=== PATIENT | male | born 1955 | race Caucasian/White ===

== ENCOUNTER 2016-12-10 07:39 | Inpatient (IN) | payer OTHER ==
[2016-12-10] VITALS (15 sets, daily range): BP systolic 82–197; BP diastolic 34–91; PULSE 60–76; RESP 16–20; O2SAT 95–100
[~2016-12-10] VITALS: Ht 182.9 cm; Wt 60.2 kg
--- NOTE | 2016-12-10 07:35 | ED.REPORT ---
HPI-Syncope Date of Service Dec 10, 2016 ED Provider: Chris Williamson MD Pt is an otherwise healthy 61 year old male who presents to the ED via EMS after a syncopal episode prior to arrival. He c/o associated lightheadedness, change in LOC, weight loss, diaphoresis, and weakness onset a "few" months ago. He denies current symptoms, cough, chest pain, SOB, dysuria, masses, vomiting, diarrhea, decreased appetite, decreased fluid intake, tarry stools, melena, bruising, and any other symptoms. 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 Pt was hypotensive on EMS arrival, with a blood pressure around 80/60 when laying supine. The pt has not been treated for his symptoms since onset. He reports that he unintentionally lost approximately 30 lbs "a few months ago." Pt states that his symptoms have been worsening recently. He denies a history of anemia and GI bleeding. He reports that he has experienced an occasional mild heartburn recently. Nursing Notes Stated Complaint: SYNCOPAL Chief Complaint: Syncope Nursing Notes Reviewed: Yes ([place] not reconciled) Allergies: Coded Allergies: No Known Allergies (Unverified , 12/10/16) Miscellaneous Medications Multivit-Min/Iron Fum/Folic AC (Svzvs-Llogqwb-Xqpmvveo Tablet) 7.5 Mg Iron-400 Mcg Tablet 1 EACH PO [place]-3 Fatty Acids/Fish Oil (Fish Oil 1,200 mg Softgel) 1 Each Capsule 1 EACH PO General Time Seen by Provider: 07:40 Chief Complaint Other (syncope) Hx Obtained From: Patient, EMS Arrived By: Ambulance Onset Occurred: Just prior to arrival Symptom Duration: Duration unknown Severity: Current: No pain currently Severity: Maximum: No pain Recent Healthcare: No recent doctor visit, No recent hospitalization Similar Sx Previous: No Past Medical History Past Medical History None reported - healthy Denies anemia Denies: GI bleed Past Surgical History Denies Smoking History Current Every Day Smoker Social History Alcohol Use: Denies alcohol use 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 Additional Review of Systems Male: Denies Dysuria Endocrine: Reports: Weight loss, Denies: Weight gain Physical Exam Initial Vital Signs Vital Signs (First) Date Time Temp Pulse Resp B/P Pulse Ox O2 Delivery O2 Flow Rate FiO2 12/10/16 07:41 36.9 71 16 82/37 96 Room Air 12/10/16 08:35 2 Initial VS: Reviewed, Unavailable, Vital signs abnormal (initial skin care specialist BP 74/p, ALS BP 95/p) Neck: Supple, Full range of motion Abdomen / GI: Soft, Non-tender Upper Extremities: Vascular intact, Neuro intact Psychiatric: Mood/affect normal, Behavior normal General/Constitutional: Awake, Alert He is extremely pale. Mentating. Respiratory / Chest: Atraumatic, Breath sounds NL, Breath sounds = bilat He is not tachypneic. Cardiovascular: Heart rate NL, Regular rhythm, Heart sounds NL Heart Rate / Rhythm: Negative: Tachycardia Hypotensive. No edema in the legs. Lower Extremity / Pelvis / MS: Atraumatic, Full range of motion Neurologic: No motor deficits, No sensory deficits Head / Eyes: Atraumatic, Normocephalic Marked conjunctival pallor ENT: Atraumatic, Airway patent Mouth: Positive: Mucous membranes dry Skin: Warm, Dry No jaundice or masses. Rectal for Blood: Positive: Blood, grossly present Rectal mass which he now mentions has been there for a couple of months. Interpretation & Diagnostics CT CHEST, ABDOMEN AND PELVIS WITH CONTRAST IMPRESSION: 1. Extensive pulmonary metastases. 2. Extensive hepatic metastases. 3. Masses in the distal colon at the sigmorectal junction, as well as anus. 4. Enlarged perirectal lymph nodes consistent with metastases. 5. Small amount of free fluid. 6. A small hiatal hernia. 7. Bifid pancreatic tail. Dictated by: Narinder Walton M.D. on 12/10/2016 at 11:16 Lab Results Interpretation Result Diagram: 12/10/16 0754 12/10/16 0835 Test 12/10/16 07:54 12/10/16 08:35 White Blood Count 13.4th/mm3 (3.8-10.1) Red Blood Count 1.97mil/mm3 (4.40-5.80) Hemoglobin 3.9g/dL (13.8-17.2) Hematocrit 14.3% (41.0-50.0) Mean Corpuscular Volume 72.6fL (81-100) Mean Corpuscular Hemoglobin 19.8pg (27.0-35.0) Mean Corpuscular Hemoglobin Concent 27.3% (32.0-37.0) Red Cell Distribution Width 19.9% (12.3-15.4) Platelet Count 954bil/L (150-400) Neutrophils (%) (Auto) 86.2% (40-74) Lymphocytes (%) (Auto) 6.4% (14-46) Monocytes (%) (Auto) 6.9% (4-12) Eosinophils (%) (Auto) 0.1% (0-5) Basophils (%) (Auto) 0.1% (0-3) Reticulocyte Count,Calculated 4.0% (0.6-2.6) Prothrombin Time 11.5sec (8.1-12.5) Prothromb Time International Ratio 1.07ratio Activated Partial Thromboplast Time 27.1sec (22.8-33.0) Sodium Level 131mEq/L (134-144) Potassium Level 4.3mEq/L (3.5-5.2) Chloride Level 95mEq/L (97-108) Carbon Dioxide Level 16mmol/L (18-29) Blood Urea Nitrogen 16mg/dL (8-27) Creatinine 1.09mg/dL (0.76-1.27) Estimat Glomerular Filtration Rate 73mL/min (>59) Glucose Level 112mg/dL (60-99) Calcium Level 7.7mg/dL (8.5-10.1) Iron Level 15ug/dL (35-150) Total Iron Binding Capacity 256ug/dL (250-450) Percent Iron Saturation 6%sat (15-50) Unsaturated Iron Binding 241.4ug/dL Ferritin 60ng/mL (30-400) Total Bilirubin 0.6mg/dL (0.0-1.2) Aspartate Amino Transf (AST/SGOT) 28U/L (0-50) Alanine Aminotransferase (ALT/SGPT) 28U/L (0-44) Alkaline Phosphatase 490U/L (25-160) Troponin T 0.010ug/L (0.0-0.011) Total Protein 5.8g/dL (6.4-8.4) Albumin 2.7g/dL (3.4-5.0) ECG Interpretation ECG Interpretation: Sinus rhythm with a rate of 65 Premature contractions LVH No ischemic changes No prior ECG for comparison Time: 07:59 Interpreted by: ED physician X-Ray Chest Interpretation Chest Xray Interpretation: IMPRESSION: Multiple masses bilaterally suspicious for pulmonary metastases. Dictated by: Narinder Walton M.D. 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 Patient was found hypotensive by first responders and pale. The patient reports he has not seen a doctor long time, denies any no medical problems and denies taking any medicines. Been feeling increasingly weak over recent months, describes a 20-30 pound weight loss that is unintentional and recent months, and initially denied any GI bleeding later admitted to having "a lump" in the rectum with some blood. He denied dyspepsia, NSAID use, anticoagulants. Denies prior history of anemia. He denied fevers chills chest pain or palpitations. He had no dysrhythmia events for EMS, but was persistently hypotensive. Arrival he is hypotensive, but alert, answering questions in no visible distress -he is cachectic, and appears chronically ill, but mentating was no evidence of inadequate perfusion. However he is extremely pale. And when I went to perform a rectal exam and guaiac, he had a rectal mass that he had not mentioned , and is guaiac positive. Small amount of gross blood. Lab work revealed severe anemia of ACIDOSIS likely secondary to anemia. EKG revealed no acute abnormalities. The patient's initial liter of saline, and then was transfused, and his blood pressures improved to the low normal range. A chest x-ray suspicious for multiple pulmonary metastases. And at this point a CT scan of the chest abdomen pelvis is being obtained with IV and oral contrast. 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 GI has been consult initially. Source of Hx: Old records Re-Evaluation/Progress #1: Time of Eval: 08:59 Re-Evaluation/Progress Note: Pt rechecked. Informed pt of plan for admission. Pt understands and agrees with plan for admission. All questions addressed. Re-Evaluation/Progress #2: Time of Eval: 09:27 Re-Evaluation/Progress Note: Pt rechecked. Tested pt for guaiac. Pt has a rectal mass, which he now mentions has been there for a couple of months and is painful. All questions addressed. Consultation #1: Referral / Consult Name: Terry Grider DO Consulted With: Hospitalist Call Returned at: 09:16 [place]ark Carpenter: Will see patient, Agrees with eval, Agrees with plan, Accepts admit Consultation #2: Referral / Consult Name: Lopez Guzman MD Call Returned at: 09:33 Bul[place]ark Carpenter: Agrees with eval, Agrees with plan Note: Consulted GI. Discussed pt's case. Consultation #3: Referral / Consult Name: Terry Grider DO Consulted With: Hospitalist Call Returned at: 10:02 Bul[place]ark Carpenter: Agrees with eval, Agrees with plan Note: Discussed pt's rectal exam. Counseled Regarding: Diagnosis, Lab results, Need for admission Discharge & Departure Impression: Primary Impression: Symptomatic anemia Additional Impressions: GI bleed GI bleed type/associated pathology: unspecified gastrointestinal hemorrhage type Qualified Code: K92.2 - Gastrointestinal hemorrhage, unspecified Syncope and collapse Rectal mass Pulmonary metastases Laterality: unspecified laterality Qualified Code: C78.00 - Secondary malignant neoplasm of unspecified lung Malignancy Disposition: ADMITTED TO HOSPITAL Discharge Condition All VS Reviewed: Yes Condition: Stable Crit Care Except Billable Proc Time Spent: 30-74 minutes Services Performed: Patient management by me, Time spent at bedside, Reviewing test results, Reviewing imaging, Discussing patient care, Documentation in record Scribe Attestation Portions of this note were transcribed by Lou Braga. I, Dr. Williamson personally performed the history, physical exam and medical decision-making; I reviewed and confirmed the accuracy of the information in the transcribed note. Signed by: Emily Bella, 12/10/16. Chris Williamson MD Dec 10, 2016 07:35 Lou Cornelius Dec 10, 2016 07:38
[2016-12-10] MEDS ORDERED: 0.9% Sodium Chloride 1,000 ML IV ONE (08:10)
[2016-12-10 08:11] LABS: EOSINOPHILS % (AUTO) 0.1 % (0-5)
--- NOTE | 2016-12-10 08:40 | DRSVH ---
PROCEDURE: X-RAY CHEST ONE VIEW, PORTABLE ([id number]) INDICATIONS: Syncope TECHNIQUE: One view of the chest was acquired. COMPARISON: None. FINDINGS: Surgical changes and devices: None. Lungs and pleura: Multiple masses are present bilaterally, predominantly involving the lower lobes, suspicious for metastatic disease. No pleural effusions or pneumothorax. Mediastinum: Mediastinal contours appear normal. Heart size is normal. Bones and chest wall: No suspicious bony lesions. Overlying soft tissues appear unremarkable. IMPRESSION: Multiple masses bilaterally suspicious for pulmonary metastases. Dictated by: Narinder Walton M.D. on 12/10/2016 at 8:37 Approved by: Narinder Walton M.D. on 12/10/2016 at 8:39
[2016-12-10 09:02] LABS: MONOCYTES % (AUTO) 6.9 % (4-12); Mean Corpuscular Hemoglobin 19.8 pg (27.0-35.0); Mean Corpuscular Volume 72.6 fL (81-100); NEUTROPHILS % (AUTO) 86.2 % (40-74); Platelet Count 954 bil/L (150-400)
[2016-12-10 09:03] LABS: BASOPHILS % (AUTO) 0.1 % (0-3)
[2016-12-10 09:05] LABS: INR 1.07 ratio
[2016-12-10 09:26] LABS: Unsaturated Iron Binding 241.4 ug/dL
[2016-12-10] MEDS ORDERED: Iohexol 300 mg/mL 30 mL Inj PO ONE (09:35)
[2016-12-10] MEDS ORDERED: OMEG1CAP99 PO (10:07)
[2016-12-10] MEDS ORDERED: MULT-1086 PO (10:07)
[2016-12-10 10:21] LABS: TROPONIN T 0.01 ug/L (0.0-0.011)
[2016-12-10] MEDS ORDERED: 0.9% Sodium Chloride 250 ML IV ONE (11:00)
[2016-12-10] MEDS ORDERED: Alum-Mag Hydrox-Simeth 30 mL Suspension PO PRN (11:25)
[2016-12-10] MEDS ORDERED: Ondansetron 2 mg/mL 2 mL Inj IVPUSH PRN ×2 (11:25→13:25)
--- NOTE | 2016-12-10 11:50 | NUR ---
Arrival to room 2008 Patient escorted via bed to room 2008. Alert and oriented at time of arrival to unit. Denies pain. Vital signs stable. Telemetry applied. 3rd unit of PRBCs transfusing at time of arrival. Patient tolerating, no s/s of reaction. Patient oriented to room and call light. Activity restrictions and plan of care reviewed at bedside. Will continue to monitor.
--- NOTE | 2016-12-10 12:01 | DRSVH ---
PROCEDURE: CT CHEST, ABDOMEN AND PELVIS WTIH CONTRAST ([id number]) INDICATIONS: 61-year-old man with rectal mass, wt loss, pulmonary masses. TECHNIQUE: After the administration of oral and intravenous contrast, 5 mm thick sections acquired from the lung apices to the symphysis. 5 mm coronal and sagittal reformats were performed, with additional 7 mm c oronal MIP reformats through the lungs. For radiation dose reduction, the following was used: autom ated exposure control, adjustment of mA and/or kV according to patient size. COMPARISON: [facility], CR, XR CHEST 1VW (PORTABLE), 12/10/2016, 8:16. FINDINGS: Image quality: Excellent. CHEST: Lungs and pleura: There are multiple lung nodules/masses bilaterally consistent with pulmonary metas tases. The largest mass is in the left lower lobe measuring 4.1 cm. No acute airspace opacities. No pleural effusions or pneumothorax. Central and peripheral airways appear patent and normal in calibe r. Mediastinum: Heart size is normal. No pericardial effusion. No enlarged mediastinal lymph nodes. A 1.6 cm right hilar lymph node is noted. Thoracic aorta and central pulmonary arteries are normal in size. Esophagus is normal in caliber. There is a small hiatal hernia. Chest wall: No axillary or supraclavicular adenopathy by size criteria. Thyroid gland is normal. ABDOMEN: Solid organs: There are innumerable liver masses. A large conglomerate mass in the left hepatic lobe measures 9.1 x 13.7 cm. A large conglomerate mass in the right hepatic lobe measures 12.6 x 11.0 cm. The findings are highly suspicious for hepatic metastases. Spleen is normal in size and enhancement. Gallbladder contains a small gallstone. Biliary system is non dilated. There is bifid pancreatic tail, which is a normal variant. Pancreas enhances normally. No adrenal nodules. Kidneys demonstrate normal size and enhancement, without hydronephrosis. Peritoneum and bowel: There is a mass in the right lateral wall of the distal sigmoid colon at the r ectosigmoid junction measuring 2.4 x 2.9 cm. There is irregular thickening/mass in the left lateral w all of anus. There is a large right perirectal mass measuring 3.4 x 2.9 cm. Another perirectal mass i s seen on the left side measuring 1.9 x 2.3 cm. Both masses are consistent with metastatic lymph node s. Bowel loops demonstrate normal caliber. No free air. There is a small amount of free fluid. Nodes and vessels: No retroperitoneal or mesenteric adenopathy by size criteria. Aorta and inferior vena cava are normal in size. Miscellaneous: No ventral hernias. PELVIS: Genitourinary: Bladder wall thickness is normal. Miscellaneous: No inguinal hernias or adenopathy. Bones: No suspicious bony lesions. No vertebral body compression fractures. IMPRESSION: 1. Extensive pulmonary metastases. 2. Extensive hepatic metastases. 3. Masses in the distal colon at the sigmorectal junction, as well as anus. 4. Enlarged perirectal lymph nodes consistent with metastases. 5. Small amount of free fluid. 6. A small hiatal hernia. 7. Bifid pancreatic tail. Dictated by: Narinder Walton M.D. on 12/10/2016 at 11:16 Approved by: Narinder Walton M.D. on 12/10/2016 at 12:00
[2016-12-10] MEDS ORDERED: HYDROcodone-APAP 5-325 mg Tablet PO PRN (13:25)
--- NOTE | 2016-12-10 14:51 | PCM.CHPMED ---
Subjective Date of Service: Dec 10, 2016 Provider requesting consult: Chris Williamson MD Primary Physician: Admitting Physician: Primary Care Physician: Jazzmine Attending Physician: Admit Status: From the Emergency Department Chief Complaint: Chief Complaint: Rectal mass History of Present Illness: Tomer Bear is a 61-year-old gentleman with a history of chronic diarrhea and tobacco dependence who presented to the ED via EMS following a syncopal episode. He states that for the past few months his health has steadily been declining. He states that he has generally felt weak, tired and has noticed a significant decrease in his appetite. Just prior to admission the patient was at work and states that he felt dizzy so he sat down on the curb. 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 When EMS arrived the patient was reportedly hypotensive with a blood pressure around 80/60 when laying supine but vitals were otherwise stable. Patient states that he also felt short of breath during this episode and reports generalized weakness, decreased appetite , dizziness, and unintentional weight loss. Of note, the patient states that he has had diarrhea for the past year or so and that every few days there is also blood in his stool. On review of outpatient records the patient was evaluated for diarrhea, fatigue and weight loss one year ago. At that time a colonoscopy was ordered but never completed. The patients states that he never went in and had it done and that his symptoms have gradually progressed since. When asked about the rectal mass noted in the ED, the patient states that he first noticed this several months ago but has not 'done anything about it'. He states that it is not painful and he is unsure if it has increased in size. He denies fever, chills, shortness of breath (outside of today), abdominal pain, nausea, vomiting , headache, changes in vision, dysuria or hematuria. He does report difficulty initiating urination as well as a decreased urinary stream. He is a current daily smoker, reporting 10-15 cigarettes per day for 'decades'. He reports a history of 6-8 beers per day on the weekends but states that he has not drank in several months due to his declining health. He does not take NSAIDs or aspirin and states that he only drinks soda on occasion. In the ED he was afebrile and hypotensive with a BP of 82/37, HR 71 and O2 sats were 96% on room air with a RR of 16. Labs were significant for severe microcytic anemia with a Hb of 3.9/Hct 14.3, iron deficiency, thrombocytosis with platelets 954,000, and a mild leukocytosis with a left shift. ECG sinus rhythm with a rate of 65, LVH, no ST-T wave changes and no prior ECG on file for comparison. Chest xray with multiple masses bilaterally suspicious for pulmonary metastases. Review of Systems: A comprehensive review of systems was conducted with the patient and found to be negative except as above in the History of Present Illness. PMH Past Medical History Chronic diarrhea Hypotension Syncope Tobacco dependence Unintentional weight loss Surgical History Finger surgery otherwise denies. Allergies: Coded Allergies: No Known Allergies (Unverified , 12/10/16) Family History Family History Father- lung cancer Brother- lung cancer Mother- stroke Social History Hx Alcohol Use: NoHx Substance Use: No Smoking Status: Current Every Day Smoker Living Arrangement: with Family Exam Vital Signs Vital Sign - Last Date Time Temp Pulse Resp B/P Pulse Ox O2 Delivery O2 Flow Rate FiO2 12/10/16 08:49 71 18 93/39 97 Nasal Cannula 2 12/10/16 07:41 36.9 General: Thin, pale and chronically ill-appearing man in no acute distress. HEENT: Normocephalic, atraumatic. External ears normal. PERRLA, EOMI. Anicteric sclerae. Mucous membranes dry Lungs: Clear to auscultation bilaterally with no crackles, wheezes, or rhonchi. Cardiovascular: Regular rate/rhythm. No murmurs Abdomen: Soft, non-distended, non-tender. Hypoactive bowel tones. Rectal: Anal sphincter normal, gross blood present, no obvious hemorrhoids or external masses. Extremities: No cyanosis/clubbing/edema bilaterally Skin: Warm, dry without obvious rashes or ulcerations. Somewhat sallow in color with decreased turgor. Neurological: Alert and oriented x3. Grossly neurologically intact. Normal speech Psychiatric: Normal mood and affect. Communicating appropriately. Lab and Diagnostics Labs Laboratory Tests Test 12/10/16 07:54 12/10/16 08:35 White Blood Count 13.4th/mm3 (3.8-10.1) Red Blood Count 1.97mil/mm3 (4.40-5.80) Hemoglobin 3.9g/dL (13.8-17.2) Hematocrit 14.3% (41.0-50.0) Mean Corpuscular Volume 72.6fL (81-100) Mean Corpuscular Hemoglobin 19.8pg (27.0-35.0) Mean Corpuscular Hemoglobin Concent 27.3% (32.0-37.0) Red Cell Distribution Width 19.9% (12.3-15.4) Platelet Count 954bil/L (150-400) Neutrophils (%) (Auto) 86.2% (40-74) Lymphocytes (%) (Auto) 6.4% (14-46) Monocytes (%) (Auto) 6.9% (4-12) Eosinophils (%) (Auto) 0.1% (0-5) Basophils (%) (Auto) 0.1% (0-3) Reticulocyte Count,Calculated 4.0% (0.6-2.6) Prothrombin Time 11.5sec (8.1-12.5) Prothromb Time International Ratio 1.07ratio Activated Partial Thromboplast Time 27.1sec (22.8-33.0) Iron Level 15ug/dL (35-150) Total Iron Binding Capacity 256ug/dL (250-450) Percent Iron Saturation 6%sat (15-50) Unsaturated Iron Binding 241.4ug/dL Ferritin 60ng/mL (30-400) Result Diagram: 12/10/16 0754 X-Rays, CTs and MRIs 12/10/16 - X-RAY CHEST ONE VIEW, PORTABLE IMPRESSION: Multiple masses bilaterally suspicious for pulmonary metastases. Approved by: Narinder Walton M.D. on 12/10/2016 at 8:39 12-lead ECG ECG at presentation showed sinus rhythm with a rate of 65, LVH, no ST-T wave changes and no prior ECG on file for comparison. Assessment & Plan Assessment 61-year-old gentleman with a history of chronic diarrhea and tobacco dependence who presented to the ED via EMS following a syncopal episode. Admitted for severe anemia in the setting of hematochezia and a rectal mass for approximately the past year. GI consulted for further evaluation and management of lower GI bleeding and rectal mass. Hematochezia in a patient with chronic diarrhea, rectal mass and poor health care followup. -Patient presented with hypotension and severe anemia following a syncopal episode at work. He reports a steady decline in his health for the past year including: increasing weakness, fatigue, unintentional weight loss and decreased appetite. He was evaluated in the outpatient setting one year ago for chronic diarrhea with intermittent hematochezia and weight loss. At that time a colonoscopy was ordered along with lab work and the patient did not have this done and has not returned to the doctor since that time. He denies family history of colon or rectal cancers and has never had a colonoscopy. -Differential diagnosis includes: diverticulosis, angiodysplasia, inflammatory bowel disease, infectious colitis, hemorrhoids, and neoplasm. RECOMMENDATIONS: -Clear liquid diet prior to prep -Start colonoscopy prep at 5pm, then ice chips only -EGD/Colonoscopy tomorrow -Monitor H/H, transfuse if Hb < 7.0 Microcytic anemia secondary to iron deficiency and acute blood loss. -At presentation Hb/Hct 3.9/14.3. Currently receiving a 3rd unit of pRBCs. -Monitor Hb/Hct, transfuse if Hb <7.0 -Supplemental iron when taking PO Thrombocytosis, likely chronic. Present on admission. Active. -likely secondary to acute blood loss/iron deficiency and potentially neoplasm and/or chronic inflammation. -Management as above Leukocytosis, acute. Present on admission. Active. -Likely stress reaction. Possibly secondary to neoplasm and/or chronic inflammation. -Treat underlying cause -Monitor CBC Problems: Pain Evaluation: Adequate Pain Control Resuscitation Status: CPR: Attempt Resuscitation Attending Statement Agree with assessment and plan above. Patient presented with profound anemia and weight loss for the past year. Patient never had EGD and colonoscopy. CT scan of chest and pelvis concerning for metastatic disease to the lung and liver with a colonic mass. Suspect possible primary origin from the colon. Patient will be having an EGD and colonoscopy tomorrow. Radhika Triana DO Dec 10, 2016 09:42 Lopez Guzman MD Dec 10, 2016 15:40
[2016-12-10] MEDS ORDERED: PEG/Electrolytes 4,000 mL Solution PO ONE (16:00)
--- NOTE | 2016-12-10 17:26 | PCM.HPMED ---
Subjective Date of Service Dec 10, 2016 Primary Provider: Admitting Physician: Terry Grider DO Primary Care Physician: Jazzmine Attending Physician: Terry Grider DO Chief Complaint: Rectal mass, weakness, near syncopal episode History of Present Illness: Mr. Bear is a 61 year old male with history of tobacco and alcohol dependence , with one year history of chronic diarrhea brought into the ED via EMS for a near syncopal episode. Just prior to admission the patient states he was on his way to a meeting when he felt faint and remembers sitting down on a curb. A coworker called EMS and upon arrival the patient was hypotensive with SBP in the 80s and laying supine, other vital signs within normal limits. Patient complains of ongoing generalized weakness, shortness of breath, decreased appetite, dizziness, unintentional weight loss (approximately 30 pounds in the last 1.5 years), chronic diarrhea ongoing for the past year, as well as frequent bright red blood in stool. The symptoms have been progressive over the past year. Patient also states that he is aware of a rectal mass that is not painful but causes irritation with bowel movements. Patient was seen at outpatient facility approximately one year ago for these ongoing symptoms and was told to get a colonoscopy at that time which was ordered, but was never completed by the patient. Patient denies chest pain, cough, nausea/vomiting, hematemesis,seizures, fevers, chills, headache, changes in vision abdominal pain, pain with defecation or urination, hematuria, or recent NSAID use. Patient smokes approximately a pack a day, which he has done for decades, and admits to significant alcohol intake, however this has decreased significantly as of late due to feeling poorly. In the ED he was afebrile and hypotensive with a BP of 82/37, HR 71 and O2 sats were 96% on room air with a RR of 16. Labs were significant for severe microcytic anemia with a Hb of 3.9/Hct 14.3, iron deficiency, thrombocytosis with platelets 954,000, and a mild leukocytosis with a left shift. ECG sinus rhythm with a rate of 65, LVH, no ST-T wave changes and no prior ECG on file for comparison. Chest xray with multiple masses bilaterally suspicious for pulmonary metastases. Abdominal CT showed: Extensive pulmonary metastases; extensive hepatic metastases; masses in the distal colon at the sigmorectal junction, as well as anus; enlarged perirectal lymph nodes consistent with metastases; and a small amount of free fluid. . 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 External ears without defect. Eyes: Pupils equal, round, and reactive to light and accommodation. Anicteric sclerae, moist conjunctivae. Neck: Normal range of motion, no lymphadenopathy noted Cardiovascular: Regular rate and rhythm with no murmurs, rubs, or gallops appreciated Pulmonary: Clear to auscultation bilaterally with no crackles, wheezes, or rhonchi. Normal respiratory effort with no use of accessory muscles. Abdomen: Bowel tones present. Soft, nontender, nondistended. Extremities: No clubbing, cyanosis, edema Skin: Normal temperature, turgor, and texture; no rash, ulcers, or subcutaneous nodules appreciated. Neurological: Cranial nerves grossly intact. Reflexes, coordination, and sensory function within normal limits. Normal muscle strength, tone, and bulk. Psychiatric: Normal mood and affect. Alert and oriented to person, place, and time Lab and Diagnostics Result Diagram: 12/10/16 1441 12/10/16 0835 X-Rays, CTs and MRIs X-RAY CHEST ONE VIEW, PORTABLE IMPRESSION: Multiple masses bilaterally suspicious for pulmonary metastases. Dictated by: Narinder Walton M.D. on 12/10/2016 at 8:37 Approved by: Narinder Walton M.D. on 12/10/2016 at 8:39 CT CHEST, ABDOMEN AND PELVIS WTIH CONTRAST IMPRESSION: 1. Extensive pulmonary metastases. 2. Extensive hepatic metastases. 3. Masses in the distal colon at the sigmorectal junction, as well as anus. 4. Enlarged perirectal lymph nodes consistent with metastases. 5. Small amount of free fluid. 6. A small hiatal hernia. 7. Bifid pancreatic tail. Dictated by: Narinder Walton M.D. on 12/10/2016 at 11:16 Approved by: Narinder Walton M.D. on 12/10/2016 at 12:00 Assessment & Plan Mr. Bear is a 61 year old male with history of tobacco and alcohol dependence , with one year history of chronic diarrhea brought into the ED via EMS for a near syncopal episode. Frequent Bloody Stool secondary to GI mass, present on admission, active - CT confirmed: Pulmonary and hepatic mets; masses in the distal colon and anus ; enlarged perirectal lymph nodes likely secondary to primary colon cancer - Rectal exam per ED shows guaiac positive stool with a small amount of gross blood and a rectal mass. - GI consulted - Colonoscopy 12/10, currently NPO completing bowel prep - Patient was counseled concerning his condition and understands that this is likely cancerous process. Microcytic anemia requiring transfusion, present on admission, active Likely chronic due to combination of low hemoglobin with low iron counts, this is consistent with his history of daily bloody stools for the last year - Transfused 2 units PRBCs - Trending H&H Q4 - Most recent H&H 8.4 - Iron panel shows decreased iron and iron saturation - IV Sodium Ferrous Gluconate - Transfusion threshold hemoglobin < 7.0 Near syncopal episode Likely secondary to severe anemia, no history of fall, no previous heart history - Patient was given a liter of fluid in the ED and then transfused - Blood pressure remains low normal - Continuous IV fluids 80 mL/hr - Patient restricted to bed, up with assist - Continue to monitor - EKG normal Metabolic Acidosis likely secondary to severe anemia, POA, Active - Pt recieved 1L of fluid in the ED prior to transfusion - Continuous IV fluids 80 mls/hr - Check lactic acid in the morning Leukocytsis, POA, active - Likely due to stress reaction - Continue to monitor Thrombocytosis, POA, active - Likely due to stress reaction - Continue to monitor Disposition: Patient admitted under inpatient status with expected length of stay > 2 midnights for severity of present symptoms, complexities of treatment plan and risk for adverse event Pain Evaluation: Adequate Pain Control VTE Prophylaxis: Other (none due to GI bleeding) VTE Mechanical Devices: Intermittant Pneumatic CD Resuscitation Status: CPR: Attempt Resuscitation Time spent 50 minutes Attending Statement I have seen and evaluated patient at bedside in addition to directly supervising care provided by resident physician Dr. Olivares on 12/10/2016. I agree with above documentation Angel Olivares DO Dec 10, 2016 17:26 Terry Grider DO Dec 11, 2016 07:48
[2016-12-10] MEDS ORDERED: Ferric Sod Gluc Complex Inj 125 MG in 0.9% Sodium Chloride 100 ML IV ONE (19:05)
[2016-12-10] MEDS ORDERED: 0.9% Sodium Chloride 1,000 ML IV SCH (19:20)
[2016-12-11] VITALS (22 sets, daily range): BP systolic 84–107; BP diastolic 50–65; PULSE 47–68; RESP 12–20; O2SAT 94–100
[2016-12-11 03:37] LABS: Mean Corpuscular Hemoglobin 25.1 pg (27.0-35.0); Mean Corpuscular Volume 79.4 fL (81-100)
[2016-12-11 04:47] LABS: Magnesium 2.2 mg/dL (1.6-2.6); Phosphorus 2.2 mg/dL (2.5-4.9)
--- NOTE | 2016-12-11 05:22 | NUR ---
Bowel Prep Pt remains alert and oriented x4, denies, pain, nausea, or SOB. Patient completed Colyte around midnight and has remained NPO. Continues to have brown bowel incontinence. Pt remained in bed all night, skin red and raw around rectal area. All vital signs remains stable and HR 60's-70's RA.
[2016-12-11 05:42] LABS: BASOPHILS % (AUTO) 0.1 % (0-3); EOSINOPHILS % (AUTO) 0.1 % (0-5); NEUTROPHILS % (AUTO) 84.4 % (40-74)
[2016-12-11] MEDS ORDERED: Lactated Ringer's 1,000 ML IV ONE (06:00)
--- NOTE | 2016-12-11 10:39 | NUR ---
Social Work: Initial Assessment/Multidisciplinary Rounds D: Per EMR review, pt is a 61 year old male admitted for syncope, anemia. Pt is listed as Self-Pay Insurance but patient states that he has MicroPhage with no supplement; pt has not LTC or VA benefits. Pt does not have a PCP; he does not want a follow up appointment at [facility] at this time. NOK is Cesar Bear, brother, . Advanced directives not completed- information provided. Pt discussed in Multidisciplinary rounds. Capacity for self care discussed; at this time pt's d/c needs are unknown and his capacity for self-care has not been assessed. SILVICULTURE PROFESSOR met with the patient at bedside. Sw role explained, contact info and d/c planning checklist provided. See initial assessment. Pt lives in [place], alone, in a two story home with 5 steps to enter. 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 At this time, pt does not know what his discharge needs will be but states that he anticipates going home when he is medically stable. A: Pt who was previously I with ADLs before admission P: Evolving; SILVICULTURE PROFESSOR to continue to follow pt's clinical progress closely to assess for discharge needs. JUAN Springer Addendum: 12/11/16 at 1051 by FABIO ESTRADA SS Amended: Links added.
[2016-12-11] MEDS ORDERED: Phenylephrine/NS 100 mCg/mL 10 mL Syringe IVPUSH ONE (12:06)
[2016-12-11] MEDS ORDERED: Propofol 10,000 mCg/mL 20 mL Inj ONE ×2 (12:06→13:21)
[2016-12-11] MEDS ORDERED: Dexamethasone 4 mg/mL Inj ONE (12:06)
[2016-12-11] MEDS ORDERED: fentaNYL-PF 50 mCg/mL 2 mL Inj ONE ×2 (12:06→13:21)
[2016-12-11] MEDS ORDERED: 0.9% Sodium Chloride 500 ML IV ONE (14:05)
--- NOTE | 2016-12-11 14:17 | PCM.PNMED ---
Subjective Date of Service Dec 11, 2016 Subjective GASTROENTEROLOGY PROGRESS NOTE: Attending Physician: Lopez Guzman MD Resident Physician: Radhika Triana DO No acute events overnight. Patient is resting comfortably today and without complaint. He states that he tolerated the bowel prep and per nursing, completed the prep around midnight and remained NPO thereafter. He denies fever , chills, abdominal pain, nausea, vomiting, chest pain, shortness of breath. Understandably he appears a bit more anxious today. He denies feeling nervous about having the colonoscopy done today and is without questions. Exam Vital Signs Vital Sign - Last Date Time Temp Pulse Resp B/P Pulse Ox O2 Delivery O2 Flow Rate FiO2 12/11/16 06:03 64 12/11/16 03:49 36.5 16 97/52 95 Room Air 12/10/16 09:43 2 Intake and Output 12/10/16 12/10/16 12/11/16 Cumulative From/Thru 15:00 23:00 07:00 12/10/16 07:41 - 12/11/16 06:52 Intake Total 1988 ml 1252 ml 3234 ml 6474 ml Output Total 450 ml 400 ml 850 ml Balance 1988 ml 802 ml 2834 ml 5624 ml Intake Oral 880 ml 2450 ml 3330 ml IV Total 1688 ml 372 ml 784 ml 2844 ml Packed Cells 300 ml 300 ml Output Urine Total 450 ml 400 ml 850 ml # Bowel Movements 5 5 Exam General: Thin, pale and chronically ill-appearing man in no acute distress. HEENT: PERRLA. Anicteric sclerae. Mucous membranes dry Lungs: Clear to auscultation bilaterally with no crackles, wheezes, or rhonchi. Cardiovascular: Regular rate/rhythm. No murmurs Abdomen: Soft, non-distended, non-tender. Hypoactive bowel tones. Extremities: Upper/lower ext notable for muscle wasting. Distal pulses equal/ intact bilaterally. No edema. Neurological: Alert and oriented x3. Grossly neurologically intact. Normal speech Psychiatric: Normal mood and affect. Communicating appropriately. IVs and Medications Medications Reviewed: Medications were reviewed in detail Lab and Diagnostics Laboratory Tests Test 12/10/16 14:41 12/10/16 20:08 12/11/16 00:05 12/11/16 03:30 Hemoglobin 8.4g/dL (13.8-17.2) 7.9g/dL (13.8-17.2) 8.0g/dL (13.8-17.2) 7.9g/dL (13.8-17.2) Hematocrit 26.3% (41.0-50.0) 25.1% (41.0-50.0) 24.8% (41.0-50.0) 25.0% (41.0-50.0) White Blood Count 16.2th/mm3 (3.8-10.1) Red Blood Count 3.15mil/mm3 (4.40-5.80) Mean Corpuscular Volume 79.4fL (81-100) Mean Corpuscular Hemoglobin 25.1pg (27.0-35.0) Mean Corpuscular Hemoglobin Concent 31.6% (32.0-37.0) Red Cell Distribution Width 20.8% (12.3-15.4) Platelet Count 725bil/L (150-400) Neutrophils (%) (Auto) 84.4% (40-74) Lymphocytes (%) (Auto) 5.8% (14-46) Monocytes (%) (Auto) 9.0% (4-12) Eosinophils (%) (Auto) 0.1% (0-5) Basophils (%) (Auto) 0.1% (0-3) Sodium Level 137mEq/L (134-144) Potassium Level 4.2mEq/L (3.5-5.2) Chloride Level 102mEq/L (97-108) Carbon Dioxide Level 21mmol/L (18-29) Blood Urea Nitrogen 11mg/dL (8-27) Creatinine 0.63mg/dL (0.76-1.27) Estimat Glomerular Filtration Rate 137mL/min (>59) Glucose Level 95mg/dL (60-99) Lactic Acid Level 1.1mmol/L (0.4-2.0) Calcium Level 7.1mg/dL (8.5-10.1) Phosphorus Level 2.2mg/dL (2.5-4.9) Magnesium Level 2.2mg/dL (1.6-2.6) Total Bilirubin 1.6mg/dL (0.0-1.2) Aspartate Amino Transf (AST/SGOT) 45U/L (0-50) Alanine Aminotransferase (ALT/SGPT) 31U/L (0-44) Alkaline Phosphatase 568U/L (25-160) Total Protein 5.1g/dL (6.4-8.4) Albumin 2.5g/dL (3.4-5.0) Procalcitonin 0.47ng/mL (0.00-0.08) Result Diagram: 12/11/16 03312/11/16 033 X-Rays, CTs and MRIs 12/10/16 - X-RAY CHEST ONE VIEW, PORTABLE IMPRESSION: Multiple masses bilaterally suspicious for pulmonary metastases. Approved by: Narinder Walton M.D. on 12/10/2016 at 8:39 12/10/16 - CT CHEST, ABDOMEN AND PELVIS WTIH CONTRAST IMPRESSION: 1. Extensive pulmonary metastases. 2. Extensive hepatic metastases. 3. Masses in the distal colon at the sigmorectal junction, as well as anus. 4. Enlarged perirectal lymph nodes consistent with metastases. 5. Small amount of free fluid. 6. A small hiatal hernia. 7. Bifid pancreatic tail. Approved by: Narinder Walton M.D. on 12/10/2016 at 12:00 Assessment & Plan 61-year-old gentleman with a history of chronic diarrhea and tobacco dependence who presented to the ED via EMS following a syncopal episode. Admitted for severe anemia in the setting of hematochezia and a rectal mass for approximately the past year. GI consulted for further evaluation and management of lower GI bleeding and rectal mass. Hematochezia in a patient with chronic diarrhea, a rectal mass and poor health care followup. -GI bleeding likely secondary to malignancy. CT Abdomen showing pulmonary and hepatic mets; masses in the distal colon and anus; enlarged perirectal lymph nodes likely secondary to primary colon cancer -Patient presented with hypotension and severe anemia following a syncopal episode at work. He reports a steady decline in his health for the past year including: unintentional weight loss and decreased appetite, as well as increasing weakness and fatigue. He was evaluated in the outpatient setting one year ago for chronic diarrhea with intermittent hematochezia and weight loss. At that time a colonoscopy was ordered along with lab work and the patient did not have this done and has not returned to the doctor since that time. He denies family history of colon or rectal cancers and has never had a colonoscopy. RECOMMENDATIONS: -EGD/Colonoscopy today -Monitor H/H, transfuse if Hb < 7.0 Microcytic anemia secondary to iron deficiency and acute blood loss. -At presentation Hb/Hct 3.9/14.3. Received 3 units of pRBCs. -Monitor Hb/Hct, transfuse if Hb <7.0 -Continue supplemental iron Thrombocytosis, likely chronic. Present on admission. Active. -Likely secondary to acute blood loss/iron deficiency and malignancy -Management as above Leukocytosis, acute. Present on admission. Active. -Likely stress reaction and/or secondary to neoplasm. -Treat underlying cause -Monitor CBC VTE Prophylaxis: Other (none due to GI bleeding) VTE Mechanical Devices: Intermittant Pneumatic CD Resuscitation Status: CPR: Attempt Resuscitation Radhika Triana DO Dec 11, 2016 09:11 Radhika Triana DO Dec 11, 2016 09:11 Radhika Triana DO Dec 11, 2016 09:11
--- NOTE | 2016-12-11 15:21 | PCM.HPANE ---
Patient Data Surgeon Admitting Provider:Terry Grider DO Attending Provider:Terry Grider DO Primary Care Physician:Jazzmine Other Provider: Reason for Visit Syncope,Anemia Ht/WT & BMI Height (Feet): 6 Weight (Kilograms): 58.600 Body Mass Index 17.08 Allergies Coded Allergies: No Known Allergies (Unverified , 12/10/16) Past Anesthesia History Anesthesia History: Denies:: Anesthesia Reactions Diabetes History Hx Diabetes?: No MRSA MRSA: No Medications Reported Medications [place]-3 Fatty Acids/Fish Oil (Fish Oil 1,200 mg Softgel)1 Each Capsule1 Each PO 12/10/16 Multivit-Min/Iron Fum/Folic AC (Gxczv-Cyrtioh-Bgnaebse Tablet)7.5 Mg Iron-400 Mcg Tablet1 Each PO 12/10/16 History History of ENT Problems?: Yes HEENT History: Denies:: Abnormal Airway Cataracts Dysphagia Glaucoma Sinus Problem Denture Type: None Teeth Condition: Tooth Decay Hx of Heart Problems?: No Cardiovascular History: Denies:: Congestive Heart Failure Hypertension Irregular Heartbeat Hx of Respiratory Problem?: Yes Respiratory History: Positive for:: Dyspnea Denies:: Asthma Chest Surgery Emphysema Hemoptysis Pneumonia Tuberculosis Hx Neurologic Problems?: No Neurological History: Positive for:: Seizures Denies:: Alzheimer's Disease CVA Dementia Headaches Parkinson's Disease Hx of GI Problems?: Yes Hx of Problems?: No Genitourinary History: Positive for:: Kidney Stones Denies:: Urinary Tract Infection Male Hx: Denies:: Prostate Problems Scrotal Mass Testicular Surgery Hx Musculoskeletal Problems?: No Musculoskeletal History: Denies:: Back Injury Joint Replacement Musculoskeletal Trauma Hx of Psycho/Social Problems?: No Psycho Social History: Denies:: Anxiety Bipolar Disorder Hx Depression Suicide Attempt Hx Surgeries?: No Hx Any Other Health Problems?: No Other History: Denies:: Cancer Thyroid Disease History Blood Transfusions: Positive for:: Accept Blood Products? 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 Hx Alcohol Use: YesAlcoholic Drinks Per Day: previously 6 beers per day Hx Substance Use: No Smoking Status: Current Every Day Smoker (approximately 1 pack per day) Have You Smoked inLast 12 mo: YesApprox How Many Cigarettes/day: 10-15 Stop/Bang Treated for Sleep Apnea?: No Do You Have a CPAP Machine?: No S-Snoring: Do You Snore Loudly: No T-Tired: feel tired, fatigued: Yes O-Obsered: Observed not breath: No P-Blood Pressure: treated: No B- Body Mass Index > 35 kg/m2: No A- Age over 50: Yes N- Neck Large Circumference: No G- Gender Male: Yes CELY Total Score: 2 CELY Risk Assessment: Low Risk, <3 Yes Risk Assessment Category Category 1A: Patient has history of documented sleep apnea, and HAS NOT received any narcotic, sedative or anesthesia administration during this stay. Category 1B: Patient has history of documented sleep apnea, and HAS received any narcotic , sedative or anesthesia administration during this stay Category 2: Patient has SUSPECTED Obstructive Sleep Apnea, and HAS received any narcotic , sedative or anesthesia administration during this stay. Category 3: Patient has SUSPECTED Obstructive Sleep Apnea and HAS NOT received narcotic, sedative or anesthesia administration during this stay. Category 4: Outpatient in Procedural Areas with known sleep apnea or who screen positive for High Risk via the STOP/BANG questionnaire. Exam Exam Vital Signs Vital Signs Date Time Temp Pulse Resp B/P Pulse Ox O2 Delivery O2 Flow Rate FiO2 12/11/16 12:27 36.5 56 16 92/56 97 Room Air 12/11/16 09:12 63 12/11/16 08:30 37.1 63 16 92/52 94 Room Air General Appearance: Alert, Oriented X3, Cooperative, No Acute Distress HEENT/AIRWAY: MP 2, Neck Movement Lungs: Clear to Auscultation, Normal Air Movement Heart: Exam Unremarkable, Regular Rate/Rhythm, No Murmurs/Rubs/Gallops Meds/Labs/Diagnostics Admission Meds Current Medications Polyethylene Glycol/ Electrolytes 4000 ml 4,000 ml ONCE ONCE PO Last administered on 12/10/16 16:46; Start 12/10/16 at 16:00; Stop 12/10/16 at 16:01 ; Status DC Lactated Ringer's 1,000 ml @ 10 mls/hr Q24H ONCE IV Last administered on 11:01; Start 12/11/16 at 06:00; Stop 12/12/16 at 05:59 Ferric Sodium Gluconate Complex 125 mg/Sodium Chloride 110 ml @ 110 mls/hr ONCE ONCE IV Last administered on 12/10/16 21:08; Start 12/10/16 at 19:05; Stop 12/10/16 at 20:04; Status DC Sodium Chloride (Normal Saline) 1,000 ml @ 80 mls/hr [id number] IV Last administered on 12/10/16t 21:08; Start 12/10/16 at 19:20; Stop 12/11/16 at 10:25 ; Status DC Labs Test 12/10/16 08:35 12/11/16 03:30 Reticulocyte Count,Calculated 4.0% (0.6-2.6) Prothrombin Time 11.5sec (8.1-12.5) Prothromb Time International Ratio 1.07ratio Activated Partial Thromboplast Time 27.1sec (22.8-33.0) Iron Level 15ug/dL (35-150) Total Iron Binding Capacity 256ug/dL (250-450) Percent Iron Saturation 6%sat (15-50) Unsaturated Iron Binding 241.4ug/dL Ferritin 60ng/mL (30-400) Troponin T 0.010ug/L (0.0-0.011) Vitamin B12 Level 1316pg/mL (211-946) White Blood Count 16.2th/mm3 (3.8-10.1) Red Blood Count 3.15mil/mm3 (4.40-5.80) Hemoglobin 7.9g/dL (13.8-17.2) Hematocrit 25.0% (41.0-50.0) Mean Corpuscular Volume 79.4fL (81-100) Mean Corpuscular Hemoglobin 25.1pg (27.0-35.0) Mean Corpuscular Hemoglobin Concent 31.6% (32.0-37.0) Red Cell Distribution Width 20.8% (12.3-15.4) Platelet Count 725bil/L (150-400) Neutrophils (%) (Auto) 84.4% (40-74) Lymphocytes (%) (Auto) 5.8% (14-46) Monocytes (%) (Auto) 9.0% (4-12) Eosinophils (%) (Auto) 0.1% (0-5) Basophils (%) (Auto) 0.1% (0-3) Sodium Level 137mEq/L (134-144) Potassium Level 4.2mEq/L (3.5-5.2) Chloride Level 102mEq/L (97-108) Carbon Dioxide Level 21mmol/L (18-29) Blood Urea Nitrogen 11mg/dL (8-27) Creatinine 0.63mg/dL (0.76-1.27) Estimat Glomerular Filtration Rate 137mL/min (>59) Glucose Level 95mg/dL (60-99) Lactic Acid Level 1.1mmol/L (0.4-2.0) Calcium Level 7.1mg/dL (8.5-10.1) Phosphorus Level 2.2mg/dL (2.5-4.9) Magnesium Level 2.2mg/dL (1.6-2.6) Total Bilirubin 1.6mg/dL (0.0-1.2) Aspartate Amino Transf (AST/SGOT) 45U/L (0-50) Alanine Aminotransferase (ALT/SGPT) 31U/L (0-44) Alkaline Phosphatase 568U/L (25-160) Total Protein 5.1g/dL (6.4-8.4) Albumin 2.5g/dL (3.4-5.0) Procalcitonin 0.47ng/mL (0.00-0.08) Plan Impression Patient chart reviewed, patient interviewed and anesthestic plan with risks, benefits, and alternatives discussed, and informed consent obtained. NPO per Anesth. Guidelines: Yes ASA Physical Status: ASA3 Severe Disease Anesthetic Plan: MAC Bene/Risks/Altern/Consents: Yes HP Complete Prior to Induction: Yes Chris Bean MD Dec 11, 2016 15:21
[2016-12-11] MEDS: Lactated Ringer's 1,000 ML IV SCH ×3 (15:57→20:30)
[2016-12-11] MEDS ORDERED: Ondansetron 2 mg/mL 2 mL Inj IVPUSH PRN ×2 (16:00→19:45)
[2016-12-11] MEDS ORDERED: MetoCLOpramide 5 mg/mL 2 mL Inj IVPUSH PRN ×2 (16:00→19:45)
--- NOTE | 2016-12-11 16:09 | PCM.PNMED ---
Subjective Date of Service Dec 11, 2016 Subjective Subjective: Patient was able to complete the bowel prep appropriately, he states that he had some trouble getting the fluid down. Patient remains anxious for colonoscopy, however does not have any questions or complaints at this time. We again discussed the likelihood of his diagnosis being a cancerous process and reiterated that we will know more post colonoscopy. Events Overnight: No acute events overnight. ROS: Denies fever/chills, nausea/vomiting, headache, weakness, abdominal pain, chest pain, shortness of breath, increased swelling in hands or feet. Exam Vital Signs Vital Sign - Last Date Time Temp Pulse Resp B/P Pulse Ox O2 Delivery O2 Flow Rate FiO2 12/11/16 15:29 61 12 103/65 98 Room Air 12/11/16 12:27 36.5 12/10/16 09:43 2 Intake and Output 12/10/16 12/10/16 12/11/16 Cumulative From/Thru 15:00 23:00 07:00 12/10/16 07:41 - 12/11/16 06:52 Intake Total 1988 ml 1252 ml 3234 ml 6474 ml Output Total 450 ml 400 ml 850 ml Balance 1988 ml 802 ml 2834 ml 5624 ml Intake Oral 880 ml 2450 ml 3330 ml IV Total 1688 ml 372 ml 784 ml 2844 ml Packed Cells 300 ml 300 ml Output Urine Total 450 ml 400 ml 850 ml # Bowel Movements 5 5 Exam General: Pale, cachectic, no acute distress, well-developed, well-nourished Head: Normocephalic, atraumatic. External ears without defect. Eyes: Pupils equal, round, and reactive to light and accommodation. Anicteric sclerae, moist conjunctivae. Neck: Normal range of motion, no lymphadenopathy noted Cardiovascular: Regular rate and rhythm with no murmurs, rubs, or gallops appreciated Pulmonary: Clear to auscultation bilaterally with no crackles, wheezes, or rhonchi. Normal respiratory effort with no use of accessory muscles. Abdomen: Bowel tones present. Soft, nontender, nondistended. Extremities: No clubbing, cyanosis, edema Skin: Normal temperature, turgor, and texture; no rash, ulcers, or subcutaneous nodules appreciated. Neurological: Cranial nerves grossly intact. Reflexes, coordination, and sensory function within normal limits. Normal muscle strength, tone, and bulk. Psychiatric: Normal mood and affect. Alert and oriented to person, place, and time IVs and Medications Medications Reviewed: Medications were reviewed in detail Lab and Diagnostics Result Diagram: 12/11/16 03312/11/16 033 X-Rays, CTs and MRIs 12/10/16 - X-RAY CHEST ONE VIEW, PORTABLE IMPRESSION: Multiple masses bilaterally suspicious for pulmonary metastases. Approved by: Narinder Walton M.D. on 12/10/2016 at 8:39 12/10/16 - CT CHEST, ABDOMEN AND PELVIS WTIH CONTRAST IMPRESSION: 1. Extensive pulmonary metastases. 2. Extensive hepatic metastases. 3. Masses in the distal colon at the sigmorectal junction, as well as anus. 4. Enlarged perirectal lymph nodes consistent with metastases. 5. Small amount of free fluid. 6. A small hiatal hernia. 7. Bifid pancreatic tail. Approved by: Narinder Walton M.D. on 12/10/2016 at 12:00 Assessment & Plan Mr. Bear is a 61 year old male with history of tobacco and alcohol dependence , with one year history of chronic diarrhea brought into the ED via EMS for a near syncopal episode. Frequent Bloody Stool secondary to GI mass, present on admission, active - CT confirmed: Pulmonary and hepatic mets; masses in the distal colon and anus ; enlarged perirectal lymph nodes likely secondary to primary colon cancer - Rectal exam per ED shows guaiac positive stool with a small amount of gross blood and a rectal mass. - GI consulted, Colonoscopy 12/11, results pending - Patient was counseled concerning his condition and understands that this is likely a cancerous process. Microcytic anemia requiring transfusion, present on admission, active Likely chronic due to combination of low hemoglobin with low iron counts, this is consistent with his history of daily bloody stools for the last year - Transfused 2 units PRBCs - H&H currently stable - Most recent H&H 7.9, repeat Q12 - Iron panel shows decreased iron and iron saturation - Transfusion threshold hemoglobin < 7.0 Near syncopal episode Likely secondary to severe anemia, no history of fall, no previous heart history - Patient was given a liter of fluid in the ED and then transfused - Blood pressure remains low normal - Patient restricted to bed, up with assist - Continue to monitor - EKG normal Metabolic Acidosis likely secondary to severe anemia, POA, Active - Pt recieved 1L of fluid in the ED prior to transfusion - Lactic acid within normal limits - Continue to monitor Leukocytsis, POA, active No signs of infection at this time as abd remains non tender and no dysuria reported - Likely due to stress reaction - Blood cultures x2 - Continue to monitor Thrombocytosis, POA, active - Likely due to stress reaction - Continue to monitor Disposition: Patient will likely require another 24 hours of monitoring post colonoscopy prior to discharge home. VTE Prophylaxis: Other (none due to GI bleeding) VTE Mechanical Devices: Intermittant Pneumatic CD Resuscitation Status: CPR: Attempt Resuscitation Time spent 30 minutes Attending Statement I have seen and evaluated the patient at bedside in addition to directly supervising care provided by Dr Olivares on 12/11/2016. I agree with above documentation. Angel Olivares DO Dec 11, 2016 16:09 Terry Grider DO Dec 12, 2016 07:36
--- NOTE | 2016-12-11 17:00 | PCM.ANEP1 ---
Post Anesthesia PACU Phase 1 Assessment Vital Signs Vital Signs Date Time Temp Pulse Resp B/P Pulse Ox O2 Delivery O2 Flow Rate FiO2 12/11/16 16:48 60 16 84/54 97 Room Air 12/11/16 16:38 62 16 86/52 95 Room Air 12/11/16 16:28 66 16 87/50 95 Room Air 12/11/16 15:29 61 12 103/65 98 Room Air 12/11/16 12:27 36.5 56 16 92/56 97 Room Air 12/11/16 09:12 63 Anesthetic Administered: MAC Level of Alertness: Awake, talking JENKINS's with Equal Strength: Yes Pain: No Nausea or Vomiting: No CV Function & Hydration Stable: Yes Airway Device: Lungs: Clear to Auscultation, Normal Air Movement Dermatome Level: Full Sensation PACU Phase 2 Assessment Complications: No Follow up Care: N/A Patient Instructions Provided: Yes Chris Bean MD Dec 11, 2016 17:00
--- NOTE | 2016-12-11 18:48 | ENDO ---
[address] [address] ENDOSCOPY PROCEDURE PATIENT: CHRISTY SANTO : 1955 MR#: [id number] ADMIT: 12/10/2016 JOB ID: [id number] DATE: 12/11/2016 PROCEDURE: 1. Esophagogastroduodenoscopy with biopsies. 2. Attempted colonoscopy. PREOPERATIVE DIAGNOSIS(ES): Anemia. Abnormal CT scan. POSTOPERATIVE DIAGNOSIS(ES): 1. Mild distal esophagitis status post biopsy. 2. Hiatal hernia. 3. Anal mass seen protruding during rectal exam in which the scope could not even be introduced into the anus due to the hard, friable mass. ANESTHESIA: Monitored anesthesia care. COMPLICATIONS: None. BLOOD LOSS: Minimal. DESCRIPTION OF PROCEDURE: After risks and benefits were explained to the patient, informed consent was obtained. After anesthesia administered, upper endoscope was then inserted into the mouth, intubating the esophagus, stomach, second portion of duodenum and mucosa carefully examined. At the end of the procedure, the scope was withdrawn and the procedure terminated. A colonoscope was not even attempted due to a protruding mass through the anus which was very friable, hard and firm and that bled upon touch. FINDINGS: Upon inspection of the esophagus, the esophagus was normal without masses, ulcers, or lesions. Z-line was located 40 cm from incisors. Upon entering the esophagus, there was mild distal esophagitis versus biopsy. Z-line located 40 cm from the incisors. Upon entry into the stomach, there were no masses, ulcers, or debris that were seen. Retroflexion showed a medium-sized hiatal hernia in the duodenal bulb, first and second portion. Biopsy was taken of the distal esophagus. Upon inspection of the anus, there was a large protruding mass through the anus which was hard upon touch, friable and bled upon touch. The colonoscope could not even be transversed through this mass itself. The procedure was then aborted. IMPRESSION: 1. Mild distal esophagitis. 2. Medium-sized hiatal hernia. 3. Hard, friable, protruding mass through the anus, very concerning for malignancy which was not biopsied due to bleeding upon touch and the scope could not even transverse through this anus. RECOMMENDATIONS: 1. Await pathology results. 2. General Surgery consultation has been called with Dr. Ansari.
--- NOTE | 2016-12-11 18:52 | CONS ---
[address] [address] CONSULTATION REPORT PATIENT: CHRISTY SANTO : 1955 MR#: [id number] ADMIT: 12/10/2016 JOB ID: [id number] DATE OF SERVICE: 12/11/2016 CHIEF COMPLAINT: A 61-year-old gentleman with anorectal mass seen in consultation at the request of Lopez Guzman MD. HISTORY OF PRESENT ILLNESS: The patient is a 61-year-old gentleman who was brought to our hospital yesterday following a syncopal episode. He has had a steady decline in his health over the last few months, with fatigue, loss of appetite, and weight loss. 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 He was evaluated in the emergency department and was found to have a hemoglobin of 3.9 and imaging concerning for pulmonary and hepatic metastases. He has known that he has a mass near the anus which has been getting bigger over time. Apparently colonoscopy was discussed with him over a year ago but it never happened. OTHER MEDICAL PROBLEMS: None known. PRIOR OPERATIONS: None. MEDICATIONS AT HOME: None. ALLERGIES: No known drug allergies. FAMILY HISTORY: Brother had lung cancer. Father had lung cancer. Mother had a stroke. SOCIAL HISTORY: He has been smoking for a long time, over a pack a day. He does drink beer. 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 INVESTIGATIONS: Labs from December 11, 2016: WBC 16.2, hemoglobin 7.9, hematocrit 25, platelet count 725. Creatinine 0.63. Albumin 2.5. Alkaline phosphatase 568. Bilirubin 1.6. INR 1.07. CT chest, abdomen, and pelvis showed extensive pulmonary metastasis, extensive hepatic metastases, mass near the anus and the distal colon, enlarged perirectal lymph nodes, and a small amount of free fluid in the abdomen. PHYSICAL EXAMINATION: A 61-year-old gentleman in no acute distress. BMI 17.5. Pulse 60, respiratory rate 16, blood pressure 98/56, saturating 97% on room air. Eyes: Normal pupils, conjunctivae. Ears, nose, and throat: Normal external appearance. Respiratory: Bilateral air entry. Cardiovascular: Regular rate and rhythm. Gastrointestinal: Abdomen is soft. Examination of the perineum revealed a fungating mass circumferentially around the anus. Neurologic: No gross deficits. Psych: Alert, appropriate. Musculoskeletal: Normal strength in extremities. ASSESSMENT AND PLAN: Anorectal mass with findings concerning for diffuse metastatic disease. I was asked by Dr. Guzman to consult given he could not advance the colonoscope through his anus. I discussed the options of rectal examination under anesthesia with biopsy versus image-guided biopsy of his liver lesions, and after discussing the risks, benefits, and alternatives, the patient wishes to proceed tonight for a biopsy in the operating room, to be able to get the answers sooner than later. We will consult Medical Oncology in the morning to get involved in his care. We will proceed tonight with the biopsy as soon as possible.
--- NOTE | 2016-12-11 19:24 | PCM.HPANE ---
Patient Data Date of Service: Dec 11, 2016 Surgeon Admitting Provider:Terry Grider DO Attending Provider:Terry Grider DO Primary Care Physician:Jazzmine Other Provider: Reason for Visit Syncope,Anemia Ht/WT & BMI Height (Feet): 6 Height (Inches): 0.00 Weight (Kilograms): 58.600 Body Mass Index 17.00 Allergies Coded Allergies: No Known Allergies (Unverified , 12/10/16) Past Anesthesia History Anesthesia History: Denies:: Abnormal Airway, Anesthesia Reactions, Difficult Intubation, Fam Anesthesia Reaction, Fam Malignant Hypertherm, Malignant Hyperthermia Diabetes History Hx Diabetes?: No MRSA MRSA: No Medications Reported Medications [place]-3 Fatty Acids/Fish Oil (Fish Oil 1,200 mg Softgel)1 Each Capsule1 Each PO 12/10/16 Multivit-Min/Iron Fum/Folic AC (Ogavr-Ulcpzjr-Bbfiixsq Tablet)7.5 Mg Iron-400 Mcg Tablet1 Each PO 12/10/16 History History of ENT Problems?: Yes HEENT History: Denies:: Abnormal Airway Cataracts Difficult Intubation Dysphagia Glaucoma Hearing Problem Sinus Problem Denture Type: None Teeth Condition: Tooth Decay Hx of Heart Problems?: No Cardiovascular History: Denies:: Congestive Heart Failure Irregular Heartbeat Hx of Respiratory Problem?: Yes Respiratory History: Positive for:: Dyspnea Pneumonia ( A CHILD) Denies:: Asthma COPD Chest Surgery Cough Emphysema Hemoptysis Tuberculosis Hx Neurologic Problems?: No Neurological History: Positive for:: Seizures Denies:: Alzheimer's Disease CVA Dementia Headaches Parkinson's Disease Hx of GI Problems?: Yes Gastrointestinal History: Positive for:: Gastrointestinal Bleeding (chronic secondary to rectal mass. Likely distant metastases) Hx of Problems?: No Genitourinary History: Positive for:: Kidney Stones Denies:: Urinary Tract Infection Male Hx: Denies:: Prostate Problems Scrotal Mass Testicular Surgery Hx Musculoskeletal Problems?: No Musculoskeletal History: Denies:: Back Injury Fibromyalgia Joint Replacement Musculoskeletal Trauma Hx of Psycho/Social Problems?: No Psycho Social History: Denies:: Anxiety Bipolar Disorder Hx Depression Suicide Attempt Hx Surgeries?: Yes (FINGER SURGERY) Hx Any Other Health Problems?: No Other History: Denies:: Cancer Thyroid Disease History Blood Transfusions: Positive for:: Accept Blood Products? 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 Hx Alcohol Use: YesAlcoholic Drinks Per Day: previously 6 beers per day Hx Substance Use: No Smoking Status: Current Every Day Smoker Have You Smoked inLast 12 mo: YesApprox How Many Cigarettes/day: 10-15 Stop/Bang Treated for Sleep Apnea?: No Do You Have a CPAP Machine?: No S-Snoring: Do You Snore Loudly: No T-Tired: feel tired, fatigued: Yes O-Obsered: Observed not breath: No P-Blood Pressure: treated: No B- Body Mass Index > 35 kg/m2: No A- Age over 50: Yes N- Neck Large Circumference: No G- Gender Male: Yes CELY Total Score: 3 CELY Risk Assessment: Low Risk, <3 Yes Risk Assessment Category Category 1A: Patient has history of documented sleep apnea, and HAS NOT received any narcotic, sedative or anesthesia administration during this stay. Category 1B: Patient has history of documented sleep apnea, and HAS received any narcotic , sedative or anesthesia administration during this stay Category 2: Patient has SUSPECTED Obstructive Sleep Apnea, and HAS received any narcotic , sedative or anesthesia administration during this stay. Category 3: Patient has SUSPECTED Obstructive Sleep Apnea and HAS NOT received narcotic, sedative or anesthesia administration during this stay. Category 4: Outpatient in Procedural Areas with known sleep apnea or who screen positive for High Risk via the STOP/BANG questionnaire. Low Risk, <3 Yes Exam Exam Vital Signs Vital Signs Date Time Temp Pulse Resp B/P Pulse Ox O2 Delivery O2 Flow Rate FiO2 12/11/16 17:19 60 16 98/56 97 Room Air 12/11/16 17:08 57 16 87/52 96 Room Air 12/11/16 16:58 57 16 94/55 96 Room Air 12/11/16 16:48 60 16 84/54 97 Room Air 12/11/16 16:38 62 16 86/52 95 Room Air 12/11/16 16:28 66 16 87/50 95 Room Air 12/11/16 15:29 61 12 103/65 98 Room Air 12/11/16 12:27 36.5 56 16 92/56 97 Room Air General Appearance: Alert, Oriented X3, Cooperative, No Acute Distress HEENT/AIRWAY: MP 2, Neck Movement Lungs: Clear to Auscultation, Normal Air Movement Heart: Exam Unremarkable, Regular Rate/Rhythm, No Murmurs/Rubs/Gallops Meds/Labs/Diagnostics Admission Meds Current Medications Lactated Ringer's 1,000 ml @ 10 mls/hr Q24H ONCE IV Last administered on 11:01; Start 12/11/16 at 06:00; Stop 12/12/16 at 05:59 Ferric Sodium Gluconate Complex 125 mg/Sodium Chloride 110 ml @ 110 mls/hr ONCE ONCE IV Last administered on 12/10/16 21:08; Start 12/10/16 at 19:05; Stop 12/10/16 at 20:04; Status DC Sodium Chloride (Normal Saline) 1,000 ml @ 80 mls/hr [id number] IV Last administered on 12/10/16 21:08; Start 12/10/16 at 19:20; Stop 12/11/16 at 10:25 ; Status DC Labs Test 12/10/16 08:35 12/11/16 03:30 12/11/16 17:45 Reticulocyte Count,Calculated 4.0% (0.6-2.6) Prothrombin Time 11.5sec (8.1-12.5) Prothromb Time International Ratio 1.07ratio Activated Partial Thromboplast Time 27.1sec (22.8-33.0) Iron Level 15ug/dL (35-150) Total Iron Binding Capacity 256ug/dL (250-450) Percent Iron Saturation 6%sat (15-50) Unsaturated Iron Binding 241.4ug/dL Ferritin 60ng/mL (30-400) Troponin T 0.010ug/L (0.0-0.011) Vitamin B12 Level 1316pg/mL (211-946) White Blood Count 16.2th/mm3 (3.8-10.1) Red Blood Count 3.15mil/mm3 (4.40-5.80) Mean Corpuscular Volume 79.4fL (81-100) Mean Corpuscular Hemoglobin 25.1pg (27.0-35.0) Mean Corpuscular Hemoglobin Concent 31.6% (32.0-37.0) Red Cell Distribution Width 20.8% (12.3-15.4) Platelet Count 725bil/L (150-400) Neutrophils (%) (Auto) 84.4% (40-74) Lymphocytes (%) (Auto) 5.8% (14-46) Monocytes (%) (Auto) 9.0% (4-12) Eosinophils (%) (Auto) 0.1% (0-5) Basophils (%) (Auto) 0.1% (0-3) Sodium Level 137mEq/L (134-144) Potassium Level 4.2mEq/L (3.5-5.2) Chloride Level 102mEq/L (97-108) Carbon Dioxide Level 21mmol/L (18-29) Blood Urea Nitrogen 11mg/dL (8-27) Creatinine 0.63mg/dL (0.76-1.27) Estimat Glomerular Filtration Rate 137mL/min (>59) Glucose Level 95mg/dL (60-99) Lactic Acid Level 1.1mmol/L (0.4-2.0) Calcium Level 7.1mg/dL (8.5-10.1) Phosphorus Level 2.2mg/dL (2.5-4.9) Magnesium Level 2.2mg/dL (1.6-2.6) Total Bilirubin 1.6mg/dL (0.0-1.2) Aspartate Amino Transf (AST/SGOT) 45U/L (0-50) Alanine Aminotransferase (ALT/SGPT) 31U/L (0-44) Alkaline Phosphatase 568U/L (25-160) Total Protein 5.1g/dL (6.4-8.4) Albumin 2.5g/dL (3.4-5.0) Procalcitonin 0.47ng/mL (0.00-0.08) Hemoglobin 8.9g/dL (13.8-17.2) Hematocrit 28.5% (41.0-50.0) Plan Impression Patient chart reviewed, patient interviewed and anesthestic plan with risks, benefits, and alternatives discussed, and informed consent obtained. NPO per Anesth. Guidelines: Yes ASA Physical Status: ASA3 Severe Disease Anesthetic Plan: GA Bene/Risks/Altern/Consents: Yes HP Complete Prior to Induction: Yes Ellis Mora MD Dec 11, 2016 18:32
--- NOTE | 2016-12-11 19:39 | NUR ---
Orientation/BMs Pt A&O X3. Answers all questions appropriately. Does not use call nicole despite being asked repeatedly to call when he is incontinent of bowels. Multiple loose incontinent brown BMs throughout the day. No blood noted. External anal masses noted. Red and tender. Buttocks is also red and somewhat tender.
[2016-12-11] MEDS ORDERED: Bupivacaine-MPF 0.5% 30 mL Inj INFILTRATE ONE (19:40)
[2016-12-11] MEDS ORDERED: Lactated Ringer's 1,000 ML IV SCH (19:41)
[2016-12-11] MEDS ORDERED: Lactated Ringer's 500 ML IV PRN (19:41)
[2016-12-11] MEDS ORDERED: Atropine 0.4 mg/mL Inj IVPUSH PRN (19:45)
[2016-12-11] MEDS ORDERED: Labetalol 5 mg/mL 20 mL Inj IV PRN (19:45)
[2016-12-11] MEDS ORDERED: Phenylephrine 10,000 mCg/mL Inj IVPUSH PRN (19:45)
[2016-12-11] MEDS ORDERED: HYDROmorphone 1 mg/mL Inj IVPUSH PRN (19:45)
[2016-12-11] MEDS ORDERED: fentaNYL-PF 50 mCg/mL 2 mL Inj IVPUSH PRN (19:45)
[2016-12-11] MEDS ORDERED: EPHEDrine Sulfate 50 mg/mL Inj IVPUSH PRN (19:45)
--- NOTE | 2016-12-11 20:08 | PCM.SURGPO ---
Immediate Operative Note Date of Surgery: Dec 11, 2016 Pre Operative Diagnosis Anorectal Mass Post Operative Diagnosis Anorectal Mass Procedure Rectal Exam Under Anesthesia, Biopsies Surgeon and [employer] Supervisor Surgeon: Sanjuana Ansari MD Assistants: None Findings Circumferential Fungating Anal Mass concerning for Squamous Cell Carcinoma Complications There were no periprocedural complications identified. Surgical Specimen Removed: Yes Specimen sent to Pathology: Yes Anesthetic Administered: GA Grafts, Implants: None Output, Estimated Blood Loss: 1 Blood Admin during surgery: No Sanjuana Ansari MD Dec 11, 2016 20:08
--- NOTE | 2016-12-11 20:31 | OP ---
[address] [address] OPERATIVE REPORT PATIENT: CHRISTY SANTO : 1955 MR#: [id number] ADMIT: 12/10/2016 JOB ID: [id number] DATE OF SURGERY: 12/11/2016 PREOPERATIVE DIAGNOSIS(ES): Anorectal mass with liver and lung lesions. POSTOPERATIVE DIAGNOSIS(ES): Anorectal mass with liver and lung lesions. PROCEDURE PERFORMED: Rectal examination under anesthesia with biopsies. SURGEON: Sanjuana Ansari MD TEST BORER HELPER: None. INDICATIONS: The patient is a 61-year-old gentleman who presented with syncope and an anorectal mass and was found to have diffuse hepatic and liver lesions and profound anemia. Dr. Guzman tried to perform a colonoscopy but because of his fungating anal mass he could not advance a colonoscope, prompting him to consult me. After discussing the risks, benefits, and alternatives, the patient was brought to the operating room for examination under anesthesia with biopsies. PROCEDURE DETAILS: He was placed in the supine position and underwent smooth induction of general anesthesia. He was then placed in a lithotomy position and a surgical time-out was undertaken using safety checklist, and all were in agreement. I then examined the perineum and noticed a fungating circumferential mass with anal opening distorted significantly. I could not even perform a digital rectal examination as my finger would not advance. At that point I proceeded to take sharp biopsies in three locations; at three o'clock, six o'clock, and 11 o'clock to get to dental detail representative samples of the fungating mass. I infiltrated the site with 0.5% bupivacaine and achieved hemostasis with electrocautery. At that point we terminated the procedure and placed a dressing. The patient was recovered from anesthesia and was taken to the recovery room in stable condition.
[2016-12-12] VITALS (8 sets, daily range): BP systolic 101–114; BP diastolic 46–67; PULSE 51–79; RESP 14–22; O2SAT 92–99
[2016-12-12 03:37] LABS: BASOPHILS % (AUTO) 0 % (0-3); EOSINOPHILS % (AUTO) 0 % (0-5); MONOCYTES % (AUTO) 4.7 % (4-12); Mean Corpuscular Hemoglobin 24.9 pg (27.0-35.0); Mean Corpuscular Volume 81.2 fL (81-100); Platelet Count 714 bil/L (150-400)
[2016-12-12 04:21] LABS: Magnesium 2.2 mg/dL (1.6-2.6); Phosphorus 3.5 mg/dL (2.5-4.9)
--- NOTE | 2016-12-12 06:01 | NUR ---
Post op/ NOC: Post op pt denies any pain. BP remains stable, Tele SR Sbrady 50-60s. ABD pad to rectum assessed and changed- very scant drainage noted. PT voiding lissa, odorous urine per urinal. Tolerating clear liquid diet. independent bed mobility- has not been out of bed to assess gait. pt aware to ring for assistance first time ambulating. call nicole in reach.
--- NOTE | 2016-12-12 09:05 | PCM.ANEP1 ---
Post Anesthesia PACU Phase 1 Assessment Date of Service: Dec 11, 2016 Vital Signs Vital Signs Date Time Temp Pulse Resp B/P Pulse Ox O2 Delivery O2 Flow Rate FiO2 12/12/16 05:27 51 12/12/16 02:51 36.0 61 14 109/58 99 Nasal Cannula 2.00 Anesthetic Administered: GA Level of Alertness: Awake, talking JENKINS's with Equal Strength: Yes Pain: No Nausea or Vomiting: No CV Function & Hydration Stable: Yes Airway Device: Oxygen Delivery: Simple Mask Lungs: Normal Air Movement Dermatome Level: Full Sensation PACU Phase 2 Assessment Patient Instructions Provided: N/A Ellis Mora MD Dec 12, 2016 09:05
--- NOTE | 2016-12-12 11:43 | PCM.PNMED ---
Subjective Date of Service Dec 12, 2016 Subjective GASTROENTEROLOGY PROGRESS NOTE: Attending Physician: Lopez Guzman MD Resident Physician: Radhika Triana DO Patient is one day s/p EGD and attempted colonoscopy. EGD was significant for a hiatal hernia and mild distal esophagitis with biopsies taken. Colonoscopy not completed due a protruding anal mass which prevented scope entry into the anus. Subsequently General Surgery was contacted and patient underwent rectal examination under anesthesia with biopsies. Today the patient states that he feels about the same. He reports generalized weakness and decreased appetite. He denies fever, chills, dizziness, chest pain , shortness of breath, abdominal pain, nausea and vomiting. Additionally he denies diarrhea, bloody or dark colored stool, and constipation. However, he states that he hasn't really had a bowel movement but does report leakage of stool. Exam Vital Signs Vital Sign - Last Date Time Temp Pulse Resp B/P Pulse Ox O2 Delivery O2 Flow Rate FiO2 12/12/16 05:27 51 12/12/16 02:51 36.0 14 109/58 99 Nasal Cannula 2.00 Intake and Output 12/11/16 12/11/16 12/12/16 Cumulative From/Thru 15:00 23:00 07:00 12/10/16 07:41 - 12/12/16 06:31 Intake Total 1040 ml 1445 ml 8959 ml Output Total 451 ml 400 ml 1701 ml Balance 589 ml 1045 ml 7258 ml Intake Oral 200 ml 540 ml 4070 ml IV Total 840 ml 905 ml 4589 ml Packed Cells 300 ml Output Urine Total 450 ml 400 ml 1700 ml Estimated Blood Loss 1 ml 1 ml # Voids 2 2 # Bowel Movements 5 10 Exam General: Thin, pale and chronically ill-appearing man in no acute distress. HEENT: Normocephalic, PERRLA. Anicteric sclerae. Mucous membranes dry Lungs: Clear to auscultation bilaterally with no crackles, wheezes, or rhonchi. Cardiovascular: Regular rate/rhythm. No murmurs Abdomen: Soft, non-distended, non-tender. Hepatomegaly and a firm, palpable mass noted in epigastrium. Hypoactive bowel tones. Extremities: Upper/lower ext notable for muscle wasting. Distal pulses equal/ intact bilaterally. No edema. Neurological: Alert and oriented x3. Grossly neurologically intact. Normal speech IVs and Medications Medications Reviewed: Medications were reviewed in detail Lab and Diagnostics Laboratory Tests Test 12/11/16 17:45 12/12/16 03:25 Hemoglobin 8.9g/dL (13.8-17.2) 8.6g/dL (13.8-17.2) Hematocrit 28.5% (41.0-50.0) 28.0% (41.0-50.0) Lipase 11U/L (13-60) White Blood Count 20.5th/mm3 (3.8-10.1) Red Blood Count 3.45mil/mm3 (4.40-5.80) Mean Corpuscular Volume 81.2fL (81-100) Mean Corpuscular Hemoglobin 24.9pg (27.0-35.0) Mean Corpuscular Hemoglobin Concent 30.7% (32.0-37.0) Red Cell Distribution Width 21.6% (12.3-15.4) Platelet Count 714bil/L (150-400) Neutrophils (%) (Auto) 91.0% (40-74) Lymphocytes (%) (Auto) 3.9% (14-46) Monocytes (%) (Auto) 4.7% (4-12) Eosinophils (%) (Auto) 0% (0-5) Basophils (%) (Auto) 0% (0-3) Sodium Level 134mEq/L (134-144) Potassium Level 5.0mEq/L (3.5-5.2) Chloride Level 100mEq/L (97-108) Carbon Dioxide Level 18mmol/L (18-29) Blood Urea Nitrogen 13mg/dL (8-27) Creatinine 0.49mg/dL (0.76-1.27) Estimat Glomerular Filtration Rate 183mL/min (>59) Glucose Level 66mg/dL (60-99) Calcium Level 7.3mg/dL (8.5-10.1) Phosphorus Level 3.5mg/dL (2.5-4.9) Magnesium Level 2.2mg/dL (1.6-2.6) Total Bilirubin 1.1mg/dL (0.0-1.2) Aspartate Amino Transf (AST/SGOT) 43U/L (0-50) Alanine Aminotransferase (ALT/SGPT) 24U/L (0-44) Alkaline Phosphatase 483U/L (25-160) Total Protein 5.1g/dL (6.4-8.4) Albumin 2.2g/dL (3.4-5.0) Procalcitonin 0.46ng/mL (0.00-0.08) Microbiology 12/11/16 Blood Culture- Pending Result Diagram: 12/12/16 0325 12/12/16 0325 X-Rays, CTs and MRIs 12/10/16 - X-RAY CHEST ONE VIEW, PORTABLE IMPRESSION: Multiple masses bilaterally suspicious for pulmonary metastases. Approved by: Narinder Walton M.D. on 12/10/2016 at 8:39 12/10/16 - CT CHEST, ABDOMEN AND PELVIS WTIH CONTRAST IMPRESSION: 1. Extensive pulmonary metastases. 2. Extensive hepatic metastases. 3. Masses in the distal colon at the sigmorectal junction, as well as anus. 4. Enlarged perirectal lymph nodes consistent with metastases. 5. Small amount of free fluid. 6. A small hiatal hernia. 7. Bifid pancreatic tail. Approved by: Narinder Walton M.D. on 12/10/2016 at 12:00 Additional Diagnostics 12/11/2016 - PROCEDURE: 1. Esophagogastroduodenoscopy with biopsies. 2. Attempted colonoscopy. PREOPERATIVE DIAGNOSIS(ES): - Anemia. Abnormal CT scan. POSTOPERATIVE DIAGNOSIS(ES): 1. Mild distal esophagitis status post biopsy. 2. Hiatal hernia. 3. Anal mass seen protruding during rectal exam in which the scope could not even be introduced into the anus due to the hard, friable mass. FINDINGS: Upon inspection of the esophagus, the esophagus was normal without masses, ulcers, or lesions. Z-line was located 40 cm from incisors. Upon entering the esophagus, there was mild distal esophagitis versus biopsy. Z-line located 40 cm from the incisors. Upon entry into the stomach, there were no masses, ulcers , or debris that were seen. Retroflexion showed a medium-sized hiatal hernia in the duodenal bulb, first and second portion. Biopsy was taken of the distal esophagus. Upon inspection of the anus, there was a large protruding mass through the anus which was hard upon touch, friable and bled upon touch. The colonoscope could not even be transversed through this mass itself. The procedure was then aborted. IMPRESSION: 1. Mild distal esophagitis. 2. Medium-sized hiatal hernia. 3. Hard, friable, protruding mass through the anus, very concerning for malignancy which was not biopsied due to bleeding upon touch and the scope could not even transverse through this anus. RECOMMENDATIONS: 1. Await pathology results. 2. General Surgery consultation has been called with Dr. Ansari. Lopez Guzman MD 12/11/16 3453 12/11/2016 - PROCEDURE PERFORMED: Rectal examination under anesthesia with biopsies. PREOPERATIVE DIAGNOSIS: Anorectal mass with liver and lung lesions. POSTOPERATIVE DIAGNOSIS: SAME PROCEDURE DETAILS: He was placed in the supine position and underwent smooth induction of general anesthesia. He was then placed in a lithotomy position and a surgical time-out was undertaken using safety checklist, and all were in agreement. I then examined the perineum and noticed a fungating circumferential mass with anal opening distorted significantly. I could not even perform a digital rectal examination as my finger would not advance. At that point I proceeded to take sharp biopsies in three locations; at three o'clock, six o'clock, and 11 o'clock to get to personnel representative samples of the fungating mass. I infiltrated the site with 0.5% bupivacaine and achieved hemostasis with electrocautery. At that point we terminated the procedure and placed a dressing. The patient was recovered from anesthesia and was taken to the recovery room in stable condition. Sanjuana Ansari MD 12/11/162004 Assessment & Plan 61-year-old gentleman with a history of chronic diarrhea and tobacco dependence who presented to the ED via EMS following a syncopal episode. Admitted for severe anemia in the setting of hematochezia and a rectal mass for approximately the past year. GI consulted for further evaluation and management of lower GI bleeding and rectal mass. Hematochezia in a patient with chronic diarrhea, a rectal mass and poor health care followup. -GI bleeding likely secondary to malignancy. CT Abdomen showing pulmonary and hepatic mets; masses in the distal colon and anus; enlarged perirectal lymph nodes likely secondary to primary colon cancer. Patient presented with hypotension and severe anemia following a syncopal episode at work in setting of unintentional weight loss and generalized weakness for the past year. Patient was evaluated in the outpatient setting one year ago for bloody diarrhea and weight loss. At that time a colonoscopy was ordered along with lab work and the patient did not have this done and has not returned to the doctor since that time. He denies family history of colon or rectal cancers and has never had a colonoscopy. -Colonoscopy attempted and unable to be completed due to a protruding, hard, and friable anal mass. RECOMMENDATIONS: -EGD signicant for hiatal hernia and mild distal esophagitis with biopsy results pending. -Colonoscopy attempted as above and General Surgery consulted. -Unfortunately from a GI standpoint no further procedures are indicated at this time. GI will sign off but remains available if necessary. -Further recommendations per General Surgery and Oncology. Greatly appreciate their time and expertise. Thank you for involving us in the care of this interesting patient. Additional problems management per primary medicine team: - Microcytic anemia secondary to iron deficiency and acute blood loss. - Thrombocytosis, likely chronic. - Leukocytosis, acute. . VTE Prophylaxis: Other (none due to GI bleeding) VTE Mechanical Devices: Intermittant Pneumatic CD Resuscitation Status: CPR: Attempt Resuscitation Radhika Triana DO Dec 12, 2016 09:09
--- NOTE | 2016-12-12 12:32 | CONS ---
[address] [address] CONSULTATION REPORT PATIENT: CHRISTY SANTO : 1955 MR#: [id number] ADMIT: 12/10/2016 JOB ID: [id number] DATE OF SERVICE: 12/12/2016 HISTORY OF PRESENT ILLNESS: The patient is a 61-year-old gentleman with metastatic colorectal cancer admitted on December 10, 2016, after a near-syncopal episode. 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 EMS was called, and he was transferred to the [facility] Emergency Department, where he was found to be hypotensive and profoundly anemic with a hemoglobin of 3.9 and hematocrit of 14.3% with an MCV of 72. He has received a total of 4 units packed red blood cells during this hospitalization, with significant improvement in symptoms. He had been profoundly dizzy and weak. In addition, he relates a history of intermittent diarrhea over the past year, occasionally bloody. He has been "going downhill" over the summer, and in the past year lost weight from his baseline of about 180 pounds to his current weight of about 130 pounds. He was finding it very difficult to move around in his home, where he is alone. He had fallen on a couple of occasions at home, but denied any injury. He denies any pain. During his initial hospital evaluation, chest film showed multiple masses, bilateral, suspicious for pulmonary metastases. He has a history of smoking 1 to 1-1/2 packs of cigarettes throughout his adult life. Additional CT imaging of the chest, abdomen and pelvis on December 10, 2016, showed extensive pulmonary metastases, with the largest mass in the left lower lobe measuring 4.1 cm. There were no enlarged mediastinal lymph nodes but he had a 1.6 cm right hilar lymph node. There were innumerable hepatic metastases, the largest forming a conglomerate mass of the left hepatic lobe measuring 9.1 x 13.7 cm and a separate large conglomerate mass in the right hepatic lobe measuring 12.6 x 11.0 cm. Within the peritoneum there was a mass in the right lateral wall of the distal sigmoid colon measuring about 2.4 x 2.9 cm, and irregular thickening of the left lateral wall of the anus. He had a large right perirectal mass measuring 3.4 x 2.9 cm, and another left-sided perirectal mass measuring 1.9 x 2.3 cm, suspicious for metastatic lymph nodes. No other suspicious retroperitoneal or mesenteric adenopathy identified. No suspicious bony lesions. There was a small amount of free fluid. He was taken to endoscopy, and biopsies were obtained surgically by Dr. Sanjuana Ansari yesterday. Pathology is not yet available. PAST MEDICAL HISTORY: 1. Chronic bloody diarrhea on and off for at least one year. 2. Hypotension. 3. Syncope. 4. Unintentional weight loss. 5. Metastatic cancer of unknown primary -- suspect colorectal. 6. Tobacco dependence. ALLERGIES: No known drug allergies. MEDICATIONS: 1. Metoclopramide 10 mg p.r.n. 2. Ondansetron 4-8 mg IV p.r.n. 3. Tylenol p.r.n. 4. Hydrocodone/acetaminophen 1-2 tabs q.4 h. p.r.n. 5. Morphine 1-2 mg IV q.4 h. p.r.n. 6. Maalox 30 mL p.o. q.6 h. p.r.n. FAMILY HISTORY: No family history of colon cancer. Brother, who was a smoker, had lung cancer. SOCIAL HISTORY AND HABITS: The patient has lived independently in [place]. 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 He smokes about 1 to 1-1/2 packs of cigarettes daily for over 40 years. He used to drink a 6-pack of beer on the weekend, but stopped that habit about a year and a half ago. REVIEW OF SYSTEMS: He denies any headaches. He has had dizziness and near syncopal episodes. He has had several falls at home, but denies any significant trauma. No acute change in vision or hearing. No hoarseness or dysphagia. He has had ongoing blood per rectum for 6-12 months intermittently. He denies any shortness of breath or chest pain. He denies any pain elsewhere. No significant nausea or vomiting. He has had frequent diarrhea as above. He has lost about 50 pounds over the last 6-12 months. He is weak. He denies any edema. No arthritic concerns. Remaining review of systems is unremarkable. PHYSICAL EXAMINATION: This is a slightly older gentleman in no acute distress. Vitals: T 36.3, P 50, R 16, BP 129/85. O2 saturation 100% on room air. Height 175 cm, weight 56.1 kg. Performance status 1. HEENT: Pupils equally round, reactive to light. Extraocular muscles intact. Sclerae anicteric, slightly injected. Conjunctivae pale. Mucous membranes slightly dry. No oral lesions. Nodes: No adenopathy in the neck, axillae, or groin. Chest: A few scattered crackles. Cardiac exam: Bradycardic but regular, with normal S1, S2. Abdomen: Soft, nontender. Normoactive bowel tones. No splenomegaly or masses. Extremities: No edema, 2+ distal pulses. No calf tenderness. No cyanosis or clubbing. No petechiae or ecchymoses. Neuro: Alert and cooperative. Mild generalized weakness but without gross focal deficits. LABORATORIES: WBC 20.5 with 91% neutrophils, 4% lymphocytes, 5% monocytes, hemoglobin 8.6, hematocrit 28%, MCV 81.2, platelets 714,000. Sodium 134, potassium 5.0, BUN 13, creatinine 0.49, glucose 66, calcium 7.3. Albumin 2.2, AST 43, ALT 24, alkaline phosphatase 483, total bilirubin 1.1. Vitamin B12 of 1316. Folate 13.4. CEA pending. ASSESSMENT AND PLAN: Metastatic (stage IV) colorectal cancer with extensive liver and lung metastases: The patient presented with a near-syncopal episode approximately three days ago. He has had ongoing bloody diarrhea for almost a year, possibly longer. He had not followed through with recommended colonoscopy at that time. In the emergency department he had profound anemia with a hemoglobin of 3.9 and hematocrit of 14.3%. He has received 4 units of packed red blood cells with a current hemoglobin of 8.6 and hematocrit of 28%. A colonoscopy found a large mass in the distal rectum. Surgical biopsies were obtained by Dr. Ansari yesterday. Await results. Imaging showed replacement of more than 50% of his liver and extensive bilateral pulmonary nodules. There were no bony metastases. The patient denies any significant pain, despite evidence of widespread cancer. He denies any shortness of breath. He is experiencing dizziness. Given his findings, we will obtain CT imaging of the brain with contrast to assess for possible brain metastases. Final pathology should be available by early next week. He will need a Port-A-Cath to facilitate chemotherapy administration. We discussed treatment with FOLFOX. Side effects and benefits were discussed in detail. The treatment would include oxaliplatin 85 mg/m2 intravenously, leucovorin 400 mg/m2 intravenously, bolus 5-fluorouracil 400 mg/m2 IV push, and infusional 5-fluorouracil 2400 mg/m2 infused continuously over 46 hours. We will start treatment after confirmation of the underlying diagnosis. If this were a squamous cell carcinoma from the anus, then treatment recommendations would change. The patient initially is interested in treatment, so we will proceed with active management. I explained that this disease is not curable, but our goal would be to prolong his life. He appears to be passing stool. Nonetheless, consider discussion of palliative radiation or surgery to his near-obstructing rectal mass. His case will be discussed further at Tumor Board next week Thursday. Thank you very much for allowing us to participate in your patient's care.
--- NOTE | 2016-12-12 12:58 | DRSVH ---
PROCEDURE: CT BRAIN WITH CONTRAST INDICATIONS: Dizziness, concern for brain mets TECHNIQUE: 4.5 mm thick angled axial sections acquired from the foramen magnum to the vertex after the administr ation of intravenous contrast, with coronal reformats. COMPARISON: None. FINDINGS: Image quality: Excellent. CSF Spaces: Basal cisterns are patent. No extra-axial fluid collections. Ventricles are normal in size and shape. Brain: No midline shift. No intracranial bleeds or masses. No abnormal intracranial enhancement. F ocal enhancement in the right parietal lobe on series 2/image 22 appears to be a normal blood vessel with slightly prominent perivascular space on coronal imaging. There is also a punctate enhancement i n the left posterior parietal lobe at the same level that again appears to represent a normal vessel on coronal imaging. Pablo-white interface appears normal. Skull and face: Calvarium and visualized facial bones appear intact, without suspicious lesions. Sinuses: Visualized sinuses and mastoids are clear. IMPRESSION: 1. No intracranial or osseous metastases identified. Contrast enhanced MRI imaging is more sensitive for small lesions. Dictated by: Tomer Aguilera M.D. on 12/12/2016 at 12:47 Approved by: Tomer Aguilera M.D. on 12/12/2016 at 12:56
[2016-12-12] MEDS ORDERED: Ferric Sod Gluc Complex Inj 125 MG in 0.9% Sodium Chloride 100 ML IV ONE (15:10)
--- NOTE | 2016-12-12 15:12 | NUR ---
NUTRITION ASSESSMENT: ASSESS: Pt is a 61yo M admitted for syncope and anemia. He has been found to have metastatic (stage IV) colorectal cancer with extensive liver and lung metastases. Oncology is following. Pt reported ~50lbs wt loss over the last year. UBW of 180lbs, current wt 130lbs. 27% wt loss x1 year= severe wt loss. Pt reported that he was too weak/tried to get to the fridge to make any food for himself and as a result just didn't eat. Pt had biopsy taken 12/11. Results are pending. He has been on NPO/CL diet x2. Diet was advanced to General this afternoon. Pt was eating a turkey sandwich when spoke with him. He reported that he has a good appetite but is just very weak. 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 GI: bloody diarrhea SKIN: External anal masses, visible fat loss in arms CURRENT WTS: 59.1kg, BMI 17.7kg/m2, admit wt: 57.2kg, IBW 80.9kg, UBW: 81.8kg, 27% wt loss x1 year= severe wt loss DIET: General, no PO yet EST. NEEDS: Ca/ wt gain Kcals: 1775-2070kcal/day (30-35kcal/kg) Pro: 95-120g/day (1.2-1.5g/kg IBW) NUTRITION DIAGNOSIS: 1.) Severe pro/kcal malnutrition in the context of chronic disease related to colon ca with mets as evidence by 27% wt loss x1 year, PO intake of <75% of estimated energy requirements for >1 month, visible fat loss in arms and BMI of 17.7kg/m2 NUTRITION INTERVENTION: 1.) Will monitor PO intake now that diet has been advanced. Pt agreed to try [place] Ensure on B tray. 2.) Provided high kcal/pro handouts and recipe book. Discussed eating smaller/more frequent meals and optimizing his intake by focusing on eating high kcal/pro food. Pt is motivated to gain wt and was engaged in conversation. 3.) Oncology RD will continue to follow pt in outpt setting MONITOR / EVAL: wt, GI, PO, labs, POC, nutrition status. Will continue to monitor per high nutrition risk guidelines
--- NOTE | 2016-12-12 15:20 | PCM.PNMED ---
Subjective Date of Service Dec 12, 2016 Subjective Subjective: Patient states that he is feeling all right today. He states that he previously had a conversation with oncology who discussed various treatments for his presumed cancer, including the possibility of non-treatment. Events Overnight: No acute events overnight. ROS: Denies fever/chills, nausea/vomiting, headache, weakness, abdominal pain, chest pain, shortness of breath, increased swelling in hands or feet. Exam Vital Signs Vital Sign - Last Date Time Temp Pulse Resp B/P Pulse Ox O2 Delivery O2 Flow Rate FiO2 12/12/16 13:10 36.7 62 22 109/55 98 Room Air 12/12/16 02:51 2.00 Intake and Output 12/11/16 12/11/16 12/12/16 Cumulative From/Thru 15:00 23:00 07:00 12/10/16 07:41 - 12/12/16 06:31 Intake Total 1040 ml 1445 ml 8959 ml Output Total 451 ml 400 ml 1701 ml Balance 589 ml 1045 ml 7258 ml Intake Oral 200 ml 540 ml 4070 ml IV Total 840 ml 905 ml 4589 ml Packed Cells 300 ml Output Urine Total 450 ml 400 ml 1700 ml Estimated Blood Loss 1 ml 1 ml # Voids 2 2 # Bowel Movements 5 10 Exam General: Pale, cachectic, no acute distress, well-developed, well-nourished Head: Normocephalic, atraumatic. External ears without defect. Eyes: Pupils equal, round, and reactive to light and accommodation. Anicteric sclerae, moist conjunctivae. Neck: Normal range of motion, no lymphadenopathy noted Cardiovascular: Regular rate and rhythm with no murmurs, rubs, or gallops appreciated Pulmonary: Clear to auscultation bilaterally with no crackles, wheezes, or rhonchi. Normal respiratory effort with no use of accessory muscles. Abdomen: Bowel tones present. Soft, nontender, nondistended. Extremities: No clubbing, cyanosis, edema Skin: Normal temperature, turgor, and texture; no rash, ulcers, or subcutaneous nodules appreciated. Neurological: Cranial nerves grossly intact. Reflexes, coordination, and sensory function within normal limits. Normal muscle strength, tone, and bulk. Psychiatric: Normal mood and affect. Alert and oriented to person, place, and time IVs and Medications Medications Reviewed: Medications were reviewed in detail Lab and Diagnostics Result Diagram: 8/25/17 0325 12/12/16 0325 X-Rays, CTs and MRIs 12/10/16 - X-RAY CHEST ONE VIEW, PORTABLE IMPRESSION: Multiple masses bilaterally suspicious for pulmonary metastases. Approved by: Narinder Walton M.D. on 12/10/2016 at 8:39 12/10/16 - CT CHEST, ABDOMEN AND PELVIS WTIH CONTRAST IMPRESSION: 1. Extensive pulmonary metastases. 2. Extensive hepatic metastases. 3. Masses in the distal colon at the sigmorectal junction, as well as anus. 4. Enlarged perirectal lymph nodes consistent with metastases. 5. Small amount of free fluid. 6. A small hiatal hernia. 7. Bifid pancreatic tail. Approved by: Narinder Walton M.D. on 12/10/2016 at 12:00 CT BRAIN WITH CONTRAST IMPRESSION: 1. No intracranial or osseous metastases identified. Contrast enhanced MRI imaging is more sensitive for small lesions. Dictated by: Tomer Aguilera M.D. on 12/12/2016 at 12:47 Approved by: Tomer Aguilera M.D. on 12/12/2016 at 12:56 Additional Diagnostics 12/11/2016 - PROCEDURE: 1. Esophagogastroduodenoscopy with biopsies. 2. Attempted colonoscopy. PREOPERATIVE DIAGNOSIS(ES): - Anemia. Abnormal CT scan. POSTOPERATIVE DIAGNOSIS(ES): 1. Mild distal esophagitis status post biopsy. 2. Hiatal hernia. 3. Anal mass seen protruding during rectal exam in which the scope could not even be introduced into the anus due to the hard, friable mass. FINDINGS: Upon inspection of the esophagus, the esophagus was normal without masses, ulcers, or lesions. Z-line was located 40 cm from incisors. Upon entering the esophagus, there was mild distal esophagitis versus biopsy. Z-line located 40 cm from the incisors. Upon entry into the stomach, there were no masses, ulcers , or debris that were seen. Retroflexion showed a medium-sized hiatal hernia in the duodenal bulb, first and second portion. Biopsy was taken of the distal esophagus. Upon inspection of the anus, there was a large protruding mass through the anus which was hard upon touch, friable and bled upon touch. The colonoscope could not even be transversed through this mass itself. The procedure was then aborted. IMPRESSION: 1. Mild distal esophagitis. 2. Medium-sized hiatal hernia. 3. Hard, friable, protruding mass through the anus, very concerning for malignancy which was not biopsied due to bleeding upon touch and the scope could not even transverse through this anus. RECOMMENDATIONS: 1. Await pathology results. 2. General Surgery consultation has been called with Dr. Ansari. Lopez Guzman MD 12/11/16 [id number] 12/11/2016 - PROCEDURE PERFORMED: Rectal examination under anesthesia with biopsies. PREOPERATIVE DIAGNOSIS: Anorectal mass with liver and lung lesions. POSTOPERATIVE DIAGNOSIS: SAME PROCEDURE DETAILS: He was placed in the supine position and underwent smooth induction of general anesthesia. He was then placed in a lithotomy position and a surgical time-out was undertaken using safety checklist, and all were in agreement. I then examined the perineum and noticed a fungating circumferential mass with anal opening distorted significantly. I could not even perform a digital rectal examination as my finger would not advance. At that point I proceeded to take sharp biopsies in three locations; at three o'clock, six o'clock, and 11 o'clock to get to customer loyalty representative samples of the fungating mass. I infiltrated the site with 0.5% bupivacaine and achieved hemostasis with electrocautery. At that point we terminated the procedure and placed a dressing. The patient was recovered from anesthesia and was taken to the recovery room in stable condition. Sanjuana Ansari MD 12/11/162004 Assessment & Plan Mr. Bear is a 61 year old male with history of tobacco and alcohol dependence , with one year history of chronic diarrhea brought into the ED via EMS for a near syncopal episode. Frequent Bloody Stool secondary to GI mass, present on admission, active - CT confirmed: Pulmonary and hepatic mets; masses in the distal colon and anus ; enlarged perirectal lymph nodes likely secondary to primary colon cancer - Rectal exam per ED shows guaiac positive stool with a small amount of gross blood and a rectal mass. - GI consulted, Colonoscopy 12/11 unable to pass camera due to overriding rectal mass. Biopsies were taken, pathology report pending - General surgery consulted, appreciate recommendations - Oncology consulted, appreciate recommendations Microcytic anemia requiring transfusion, present on admission, active Likely chronic due to combination of low hemoglobin with low iron counts, this is consistent with his history of daily bloody stools for the last year - Transfused 2 units PRBCs on 12/10 - H&H currently stable - Iron panel shows decreased iron and iron saturation - Repeat Iron infusion with iron sodium gluconate 12/12 - Transfusion threshold hemoglobin < 7.0 Near syncopal episode Likely secondary to severe anemia, no history of fall, no previous heart history - Patient was given a liter of fluid in the ED and then transfused - Blood pressure remains low normal - Continue to monitor Metabolic Acidosis likely secondary to severe anemia, POA, Active - Pt recieved 1L of fluid in the ED prior to transfusion - Lactic acid within normal limits - Continue to monitor Leukocytsis, POA, active No signs of infection at this time as abd remains non tender and no dysuria reported, no temps - Likely due to stress reaction secondary to colon cancer - Blood cultures x2 no growth to date - Continue to monitor Thrombocytosis, POA, active - Likely due to stress reaction secondary to colon cancer - Continue to monitor Disposition: Patient will likely require another 24 hours of monitoring prior to discharge home. VTE Prophylaxis: Other (none due to GI bleeding) VTE Mechanical Devices: Intermittant Pneumatic CD Resuscitation Status: CPR: Attempt Resuscitation Time spent 30 minutes Attending Statement I have seen and evaluated patient at bedside, in addition to directly supervising care provided by resident physician Dr Olivares. I agree with above recommendations. Angel Olivares DO Dec 12, 2016 15:20 Terry Grider DO Dec 12, 2016 17:08
--- NOTE | 2016-12-12 15:25 | NUR ---
POST HOSPITAL FOLLOW UP: Called and scheduled hospital follow up appointment for 12/19/16 check in at 135PM for 150PM appointment with Updated [employer]
--- NOTE | 2016-12-12 15:55 | NUR ---
Social Work: Readiness for Discharge Data: EMR reviewed. Pt is on day 2 of hospitalization for syncope, anemia. Pt discussed in multidisciplinary rounds. Pt will require PCP follow up. SW met with pt at bedside regarding [facility] referral. Discussed pt's need for medical follow up due to chronic health concerns. Pt is agreeable today and agreeable to Res Clinic appointment. CASTING ASSOCIATE requested to make appointment, information included in d/c case management instructions. Appointment on 12/19 at 1:35 pm. Pt will likely d/c home with outpt follow up, no additional needs identified. Assessment: Pt who is independent at baseline. Plan: Pt likely to d/c home with outpt follow up, no additional d/c needs. SW will continue to follow. JUAN Underwood
--- NOTE | 2016-12-12 18:16 | NUR ---
Self-transfer/biopsy After being incontinent of diarrhea in the bed, pt removed own tele leads and self-transferred to the bathroom. Education provided by staff. Pt ambulated back to the bed independently with no issues. Anal region is no longer draining from biopsy. No c/o pain or discomfort.
[2016-12-13 03:52] LABS: Unsaturated Iron Binding 154.7 ug/dL
[2016-12-13 04:06] VITALS: BP 107/66; PULSE 74; RESP 20; O2SAT 93
[2016-12-13 05:29] VITALS: PULSE 74
--- NOTE | 2016-12-13 06:04 | NUR ---
no pain/input and output pt denies any pain all shift, pt drinking lots of water this shift, c/o dry mouth, pt having one loose stool and voiding lissa/orange urine in urinal rest of shift.
--- NOTE | 2016-12-13 08:45 | PROG NOTE ---
[address] [address] PROGRESS NOTE PATIENT: CHRISTY SANTO : 1955 MR#: [id number] ADMIT: 12/10/2016 JOB ID: [id number] DATE: 12/13/2016 SUBJECTIVE: The patient is a 61-year-old gentleman with widely metastatic cancer. A rectal/anal lesion was biopsied by Dr. Sanjuana Ansari two days ago. Pathology is not yet available. The patient has had ongoing of bloody diarrhea, but this has slowed significantly. He is feeling a little stronger today. He is hoping to go home. He had a CT of the brain yesterday which was negative for intracranial metastases. OBJECTIVE: Vitals: T 37.7, P 74, R 20, BP 107/66, O2 saturation 93% on room air. HEENT: Conjunctivae slightly pale. Mucous membranes moist. No oral lesions. Nodes: No adenopathy in the neck or axilla. Chest: Few scattered crackles. Cardiac exam: Regular rate and rhythm with normal S1, S2. Abdomen: Soft and nontender. Extremities: No edema. 2+ distal pulses. LABORATORIES: WBC 17.1 with approximately 90% neutrophils, hemoglobin 8.3, hematocrit 26.9%, platelets 761,000. Sodium 131, potassium 4.9, BUN 18, creatinine 0.69, glucose 180, calcium 7.3. Albumin 2.2. Iron 49, TIBC 204%, saturation 24%. AST 86, ALT 46, alkaline phosphatase 916. ASSESSMENT AND PLAN: Metastatic (stage IV), rectal/anal cancer with extensive liver and lung metastases: The patient presented with a near syncopal episode about four days ago. He was profoundly anemic with a hematocrit of 14.3%, for which he has received 4 units of packed red blood cells during this hospitalization. Current hemoglobin and hematocrit are stable. Bloody diarrhea has slowed. No indication for further transfusion support at this time. Given ongoing blood loss, consider oral iron replacement. He had a large mass in the distal rectum/anus. Surgical biopsies obtained were obtained by Dr. Ansari, who suspects that this may be a squamous cell carcinoma. Await final pathology to determine treatment options. Clearly, this is very advanced disease and incurable. Nonetheless, palliative chemotherapy could potentially prolong life. He is hoping to go home. If discharged, we will contact the patient early next week once pathology is available to discuss his options. His case will also be discussed at our upcoming Tumor Board next week, Thursday. Cc: Dr. Angel Olivares.
[2016-12-13 08:54] VITALS: PULSE 72
[2016-12-13 09:00] VITALS: BP 104/60; PULSE 72; RESP 18; O2SAT 93
[2016-12-13] MEDS ORDERED: CeFAZolin Inj 2 GM in IV Premix 1 EACH IV ONE (09:00)
--- NOTE | 2016-12-13 09:57 | PCM.PNSURG ---
Subjective Date of Service: Dec 13, 2016 Visit Information: Metastatic anal/rectal cancer s/p eua with bx 12/11/2016 Date of Admission: Dec 10, 2016 at 10:58 Hospital Day # 4 Objective Vital Sign- Last 8 Hours Date Time Temp Pulse Resp B/P Pulse Ox O2 Delivery O2 Flow Rate FiO2 12/13/16 09:00 37.1 72 18 104/60 93 Room Air 12/13/16 08:54 72 12/13/16 05:29 74 12/13/16 04:06 37.7 74 20 107/66 93 Room Air Intake and Output- Last 8 Hour 12/13/16 Cumulative From/Thru 07:00 12/10/16 07:41 - 12/13/16 06:29 Intake Total 1600 ml 78926 ml Output Total 700 ml 2401 ml Balance 900 ml 9078 ml Intake Oral 1600 ml 6470 ml IV Total 4709 ml Packed Cells 300 ml Output Urine Total 700 ml 2400 ml Estimated Blood Loss 1 ml # Voids 4 # Bowel Movements 1 13 Abdomen: Soft Result Diagram: 12/13/16 0258 12/13/16 0258 Assessment & Plan Impression Stable Problems: Plan discussed port placement per Dr. Guerrero's request patient needs more time to think about his options Please call with questions Sanjuana Ansari MD Dec 13, 2016 09:57
[2016-12-13] MEDS ORDERED: IRON1TAB97 PO (10:30)
--- NOTE | 2016-12-13 10:46 | PCM.DIMED ---
Angel Olivares DO 12/13/16 1046: Discharge Instructions Date of Service Dec 13, 2016 Dates of Hospitalization Dec 10, 2016 at 10:58 Discharge Diagnosis Discharge Diagnosis Frequent Bloody Stool likely secondary to colon cancer Microcytic anemia requiring transfusion Near syncopal episode Metabolic Acidosis likely secondary to severe anemia Leukocytsis Thrombocytosis Medication Instructions Additional med instructions With like you to continue taking all home medications as previous: We would like you to start taking an iron supplement daily. Test Results Test Results Multiple imaging modalities were completed during her stay here in the hospital which showed the following: A chest x-ray showed multiple masses on both sides of your lung suspicious for cancer metastases A CT scan of your chest abdomen and pelvis revealed pulmonary metastases, liver metastases, masses in the colon as well as the anus. Your pancreas was also seem to have split tail, which may need to be followed up at a future appointment Diet Discharge Diet: No restrictions Activity Discharge Activity: No restrictions Call your provider Call your provider for: Fever or Chills, Shortness of breath, Bleeding, Chest pain, Vomitting, Excessive diarrhea, Weakness (unilateral) Patient Instructions Patient Instructions Based on the imaging and your history it appears that your symptoms are likely the result of a progressive colon cancer which has spread to your liver lungs. Oncology has been consulted and they are following this case. The biopsies taken will likely result on Thursday or Thursday of the following week, at which point oncology will contact you to set up an appointment as an outpatient. Once the results of the pathology report are finalized we can begin the discussion of various modalities of treatment and can begin to discuss the risks and benefits of these interventions. Until that time we would like you to continue taking an iron supplement to ensure that your blood counts remain elevated appropriately. Follow-up plan Review will follow-up with oncology within the next week, once they have results from the pathology report they will contact you and initiate an appointment. Follow-up Provider: Mehdi Guerrero MD Follow-up with PCP in: 1 week Terry Grider DO 12/13/16 1307: Discharge Instructions Attending's Statement I have seen and evaluated the patient at bedside in addition to directly supervising care provided by resident physician Dr Olivares. I agree with above documentation. Angel Olivares DO Dec 13, 2016 10:46 Terry Grider DO Dec 13, 2016 13:07
--- NOTE | 2016-12-13 11:51 | NUR ---
Social Work: Readiness for Discharge/Multidisciplinary Rounds D: EMR reviewed. Pt is on day 3 of hospitalization. Pt discussed in multidisciplinary rounds and is medically stable for discharge home today via POV. No SW needs identified, no MD orders received. Pt to followup with PCP appointment at [facility] on 12/19. Pt provided information regarding follow-up appointment. Pt has brother in room who will provide transport home today via POV. No discharge needs at this time. A: Pt who is independent at baseline P: Pt to discharge home via POV today - no discharge planning needs identified, no MD orders received. Pt to follow up with PCP on 12/19 regarding new cx dx. Pt agreeable to discharge plan. RN updated pt cleared for discharge. JUAN Chester
[2016-12-13 12:18] VITALS: BP 118/63; PULSE 71; RESP 20; O2SAT 94
--- NOTE | 2016-12-13 13:48 | NUR ---
Evaluation completed. Please go to "Notes" then click on "Assessments and Notes" (bottom left corner of screen). Then select appropriate discipline tab on top of screen.
--- NOTE | 2016-12-13 16:04 | NUR ---
Discharge Patient was discharged home today with his sister accompanying him and as his designated set key driver home. Patient denied having any pain or discomfort at the time. Patient did not have any stools today and non since last night. Patient was evaluated by PT today prior to discharge. He tolerated activity fairly well. Patient was able to dress himself, ambulate from his bed to the bathroom and transfer from bed to chair. Patient and his sitter verbalized understanding of verbal and written discharge home instructions. Patient was aware of his diagnosis of metastasized cancer. He verbalized that he had good support with his baptism and his sister. Saline lock was removed intact prior to discharge. Patient was transported by wheelchair to his sisters car and was accompanied by staff.
--- NOTE | 2016-12-13 16:10 | NUR ---
Social Work: Discharge D: EMR reviewed. Pt is on day 3 of hospitalization. Pt discussed in multidisciplinary rounds and is medically stable for discharge home today via POV. No SW needs identified, no MD orders received. Pt to followup with PCP appointment at [facility] on 12/19. Pt provided information regarding follow-up appointment. Pt has brother in room who will provide transport home today via POV. A: Pt who is independent at baseline P: Pt to discharge home via POV today - no discharge planning needs identified, no MD orders received. Pt to follow up with PCP on 12/19 regarding new cx dx. Pt agreeable to discharge plan. RN updated pt cleared for discharge. JUAN Chester
--- NOTE | 2016-12-13 20:16 | PCM.DC.MED ---
Discharge Summary Date of Service Dec 13, 2016 Dates of Hospitalization Date of Hospital Admission Dec 10, 2016 at 10:58 Date of Discharge: Dec 13, 2016 Providers: Admitting Physician: Terry Grider DO Primary Care Physician: Jazzmine Attending Physician: Terry Grider DO Diagnosis at Time of Discharge Diagnosis at Time of Discharge Frequent Bloody Stool likely secondary to colon cancer Microcytic anemia requiring transfusion Near syncopal episode Metabolic Acidosis likely secondary to severe anemia Leukocytsis Thrombocytosis Consultations GI: Dr. Guzman, Dr. Ansari Oncology: Dr. Guerrero Procedures XRay, CTs & MRIs 12/10/16 - X-RAY CHEST ONE VIEW, PORTABLE IMPRESSION: Multiple masses bilaterally suspicious for pulmonary metastases. Approved by: Narinder Walton M.D. on 12/10/2016 at 8:39 12/10/16 - CT CHEST, ABDOMEN AND PELVIS WTIH CONTRAST IMPRESSION: 1. Extensive pulmonary metastases. 2. Extensive hepatic metastases. 3. Masses in the distal colon at the sigmorectal junction, as well as anus. 4. Enlarged perirectal lymph nodes consistent with metastases. 5. Small amount of free fluid. 6. A small hiatal hernia. 7. Bifid pancreatic tail. Approved by: Narinder Walton M.D. on 12/10/2016 at 12:00 CT BRAIN WITH CONTRAST IMPRESSION: 1. No intracranial or osseous metastases identified. Contrast enhanced MRI imaging is more sensitive for small lesions. Dictated by: Tomer Aguilera M.D. on 12/12/2016 at 12:47 Approved by: Tomer Aguilera M.D. on 12/12/2016 at 12:56 Other Diagnostics 12/11/2016 - PROCEDURE: 1. Esophagogastroduodenoscopy with biopsies. 2. Attempted colonoscopy. PREOPERATIVE DIAGNOSIS(ES): - Anemia. Abnormal CT scan. POSTOPERATIVE DIAGNOSIS(ES): 1. Mild distal esophagitis status post biopsy. 2. Hiatal hernia. 3. Anal mass seen protruding during rectal exam in which the scope could not even be introduced into the anus due to the hard, friable mass. FINDINGS: Upon inspection of the esophagus, the esophagus was normal without masses, ulcers, or lesions. Z-line was located 40 cm from incisors. Upon entering the esophagus, there was mild distal esophagitis versus biopsy. Z-line located 40 cm from the incisors. Upon entry into the stomach, there were no masses, ulcers , or debris that were seen. Retroflexion showed a medium-sized hiatal hernia in the duodenal bulb, first and second portion. Biopsy was taken of the distal esophagus. Upon inspection of the anus, there was a large protruding mass through the anus which was hard upon touch, friable and bled upon touch. The colonoscope could not even be transversed through this mass itself. The procedure was then aborted. IMPRESSION: 1. Mild distal esophagitis. 2. Medium-sized hiatal hernia. 3. Hard, friable, protruding mass through the anus, very concerning for malignancy which was not biopsied due to bleeding upon touch and the scope could not even transverse through this anus. RECOMMENDATIONS: 1. Await pathology results. 2. General Surgery consultation has been called with Dr. Ansari. Lopez Guzman MD 12/11/16 [id number] 12/11/2016 - PROCEDURE PERFORMED: Rectal examination under anesthesia with biopsies. PREOPERATIVE DIAGNOSIS: Anorectal mass with liver and lung lesions. POSTOPERATIVE DIAGNOSIS: SAME PROCEDURE DETAILS: He was placed in the supine position and underwent smooth induction of general anesthesia. He was then placed in a lithotomy position and a surgical time-out was undertaken using safety checklist, and all were in agreement. I then examined the perineum and noticed a fungating circumferential mass with anal opening distorted significantly. I could not even perform a digital rectal examination as my finger would not advance. At that point I proceeded to take sharp biopsies in three locations; at three o'clock, six o'clock, and 11 o'clock to get to public health representative samples of the fungating mass. I infiltrated the site with 0.5% bupivacaine and achieved hemostasis with electrocautery. At that point we terminated the procedure and placed a dressing. The patient was recovered from anesthesia and was taken to the recovery room in stable condition. Sanjuana Ansari MD 12/11/162004 Brief History Taken from the H&P completed by Dr. Penaloza: Mr. Bear is a 61 year old male with history of tobacco and alcohol dependence , with one year history of chronic diarrhea brought into the ED via EMS for a near syncopal episode. Just prior to admission the patient states he was on his way to a meeting when he felt faint and remembers sitting down on a curb. A coworker called EMS and upon arrival the patient was hypotensive with SBP in the 80s and laying supine, other vital signs within normal limits. Patient complains of ongoing generalized weakness, shortness of breath, decreased appetite, dizziness, unintentional weight loss (approximately 30 pounds in the last 1.5 years), chronic diarrhea ongoing for the past year, as well as frequent bright red blood in stool. The symptoms have been progressive over the past year. Patient also states that he is aware of a rectal mass that is not painful but causes irritation with bowel movements. Patient was seen at outpatient facility approximately one year ago for these ongoing symptoms and was told to get a colonoscopy at that time which was ordered, but was never completed by the patient. Patient denies chest pain, cough, nausea/vomiting, hematemesis,seizures, fevers, chills, headache, changes in vision abdominal pain, pain with defecation or urination, hematuria, or recent NSAID use. Patient smokes approximately a pack a day, which he has done for decades, and admits to significant alcohol intake, however this has decreased significantly as of late due to feeling poorly. In the ED he was afebrile and hypotensive with a BP of 82/37, HR 71 and O2 sats were 96% on room air with a RR of 16. Labs were significant for severe microcytic anemia with a Hb of 3.9/Hct 14.3, iron deficiency, thrombocytosis with platelets 954,000, and a mild leukocytosis with a left shift. ECG sinus rhythm with a rate of 65, LVH, no ST-T wave changes and no prior ECG on file for comparison. Chest xray with multiple masses bilaterally suspicious for pulmonary metastases. Abdominal CT showed: Extensive pulmonary metastases; extensive hepatic metastases; masses in the distal colon at the sigmorectal junction, as well as anus; enlarged perirectal lymph nodes consistent with metastases; and a small amount of free fluid. . Hospital Course Mr. Bear is a 61 year old male with history of tobacco and alcohol dependence , with one year history of chronic diarrhea brought into the ED via EMS for a near syncopal episode. Frequent Bloody Stool secondary to GI mass, present on admission, active - CT confirmed: Pulmonary and hepatic mets; masses in the distal colon and anus ; enlarged perirectal lymph nodes likely secondary to primary colon cancer - Rectal exam per ED shows guaiac positive stool with a small amount of gross blood and a rectal mass. - GI consulted, Colonoscopy 12/11 unable to pass camera due to overriding rectal mass. Biopsies were taken, pathology report pending - General surgery consulted, appreciate recommendations - Oncology consulted, appreciate recommendations Microcytic anemia requiring transfusion, present on admission, active Likely chronic due to combination of low hemoglobin with low iron counts, this is consistent with his history of daily bloody stools for the last year - Transfused 2 units PRBCs on 12/10 - H&H currently stable - Iron panel shows decreased iron and iron saturation - Initiate daily iron supplementation Near syncopal episode Likely secondary to severe anemia, no history of fall, no previous heart history - Patient was given a liter of fluid in the ED and then transfused - Blood pressure remains low normal - Continue to monitor Metabolic Acidosis likely secondary to severe anemia, POA, Active - Pt recieved 1L of fluid in the ED prior to transfusion - Lactic acid within normal limits - Continue to monitor Leukocytsis, POA, active No signs of infection at this time as abd remains non tender and no dysuria reported, no temps - Likely due to stress reaction secondary to colon cancer - Blood cultures x2 no growth to date - Continue to monitor Thrombocytosis, POA, active - Likely due to continued bleeding - Continue to monitor Exam Vital Signs (Last) Date Time Temp Pulse Resp B/P Pulse Ox O2 Delivery O2 Flow Rate FiO2 12/13/16 12:18 36.7 71 20 118/63 94 Room Air 12/12/16 02:51 2.00 Exam General: Pale, cachectic, no acute distress, well-developed, well-nourished Head: Normocephalic, atraumatic. External ears without defect. Eyes: Pupils equal, round, and reactive to light and accommodation. Anicteric sclerae, moist conjunctivae. Neck: Normal range of motion, no lymphadenopathy noted Cardiovascular: Regular rate and rhythm with no murmurs, rubs, or gallops appreciated Pulmonary: Clear to auscultation bilaterally with no crackles, wheezes, or rhonchi. Normal respiratory effort with no use of accessory muscles. Abdomen: Bowel tones present. Soft, nontender, nondistended. Extremities: No clubbing, cyanosis, edema Skin: Normal temperature, turgor, and texture; no rash, ulcers, or subcutaneous nodules appreciated. Neurological: Cranial nerves grossly intact. Reflexes, coordination, and sensory function within normal limits. Normal muscle strength, tone, and bulk. Psychiatric: Normal mood and affect. Alert and oriented to person, place, and time Test 12/10/16 08:35 12/11/16 03:30 12/11/16 17:45 12/12/16 03:25 Reticulocyte Count,Calculated 4.0% (0.6-2.6) Prothrombin Time 11.5sec (8.1-12.5) Prothromb Time International Ratio 1.07ratio Activated Partial Thromboplast Time 27.1sec (22.8-33.0) Ferritin 60ng/mL (30-400) Troponin T 0.010ug/L (0.0-0.011) Vitamin B12 Level 1316pg/mL (211-946) Folate 13.4ng/mL (>3.0) Lactic Acid Level 1.1mmol/L (0.4-2.0) Lipase 11U/L (13-60) Neutrophils (%) (Auto) 91.0% (40-74) Lymphocytes (%) (Auto) 3.9% (14-46) Monocytes (%) (Auto) 4.7% (4-12) Eosinophils (%) (Auto) 0% (0-5) Basophils (%) (Auto) 0% (0-3) Phosphorus Level 3.5mg/dL (2.5-4.9) Magnesium Level 2.2mg/dL (1.6-2.6) Carcinoembryonic Antigen 44.3ng/mL (0.0-4.7) Procalcitonin 0.46ng/mL (0.00-0.08) Test 12/13/16 02:58 White Blood Count 17.1th/mm3 (3.8-10.1) Red Blood Count 3.32mil/mm3 (4.40-5.80) Hemoglobin 8.3g/dL (13.8-17.2) Hematocrit 26.9% (41.0-50.0) Mean Corpuscular Volume 81.0fL (81-100) Mean Corpuscular Hemoglobin 25.0pg (27.0-35.0) Mean Corpuscular Hemoglobin Concent 30.9% (32.0-37.0) Red Cell Distribution Width 22.8% (12.3-15.4) Platelet Count 761bil/L (150-400) Sodium Level 131mEq/L (134-144) Potassium Level 4.9mEq/L (3.5-5.2) Chloride Level 96mEq/L (97-108) Carbon Dioxide Level 20mmol/L (18-29) Blood Urea Nitrogen 18mg/dL (8-27) Creatinine 0.69mg/dL (0.76-1.27) Estimat Glomerular Filtration Rate 123mL/min (>59) Glucose Level 180mg/dL (60-99) Calcium Level 7.3mg/dL (8.5-10.1) Iron Level 49ug/dL (35-150) Total Iron Binding Capacity 204ug/dL (250-450) Percent Iron Saturation 24%sat (15-50) Unsaturated Iron Binding 154.7ug/dL Total Bilirubin 0.8mg/dL (0.0-1.2) Aspartate Amino Transf (AST/SGOT) 86U/L (0-50) Alanine Aminotransferase (ALT/SGPT) 46U/L (0-44) Alkaline Phosphatase 916U/L (25-160) Total Protein 5.0g/dL (6.4-8.4) Albumin 2.2g/dL (3.4-5.0) Discharge Medications Discharge Medications Iron,Carbonyl/Vit C/Vit B12/FA (Iron 100 Plus Tablet) 1 Each Tablet 1 EACH PO DAILY Prescribed by: ANGEL PENALOZA, DO Miscellaneous Medications Multivit-Min/Iron Fum/Folic AC (Scpht-Yxgoqri-Xhugjbyp Tablet) 7.5 Mg Iron-400 Mcg Tablet 1 EACH PO (Reported) [place]-3 Fatty Acids/Fish Oil (Fish Oil 1,200 mg Softgel) 1 Each Capsule 1 EACH PO (Reported) Additional med instructions With like you to continue taking all home medications as previous: We would like you to start taking an iron supplement daily. Followup Plan Disposition: Home Follow-up plan Review will follow-up with oncology within the next week, once they have results from the pathology report they will contact you and initiate an appointment. Discharge Diet: No restrictions Discharge Activity: No restrictions Patient Instructions Based on the imaging and your history it appears that your symptoms are likely the result of a progressive colon cancer which has spread to your liver lungs. Oncology has been consulted and they are following this case. The biopsies taken will likely result on Thursday or Thursday of the following week, at which point oncology will contact you to set up an appointment as an outpatient. Once the results of the pathology report are finalized we can begin the discussion of various modalities of treatment and can begin to discuss the risks and benefits of these interventions. Until that time we would like you to continue taking an iron supplement to ensure that your blood counts remain elevated appropriately. Follow-up Provider: Mehdi Guerrero MD Follow-up with PCP in: 1 week Time spent Greater than 35 minutes spent on documentation and coordination of discharge. Attending Statement I have seen and evaluated this patient at bedside, in addition to directly supervising care provided by resident physician Dr Penaloza on 12/13/2016. I agree with above documentation. Angel Penaloza DO Dec 13, 2016 20:16 Terry Grider DO Dec 14, 2016 08:12
--- NOTE | 2016-12-16 11:56 | PATH ---
SURGICAL PATHOLOGY Attending Physician:Lopez Guzman MD CASE STATUS: Signed Out PATIENT NAME: CHRISTY SANTO PID: [id number] : 1955 DATE COLLECTED:12/11/2016 00:00 SPECIMEN: Esophagus, Biopsy CLINICAL HISTORY: 1). DISTAL ESOPHAGUS BIOPSY FINAL DIAGNOSIS: Distal Esophagus, Biopsy: Squamocolumnar junctional mucosa with minimal neutrophilic activity. Negative for intestinal metaplasia. Negative for dysplasia and malignancy. ICD10: K20.9 GROSS DESCRIPTION: The specimen is received in formalin, labeled with the patient's name, sublabeled as distal esophagus biopsy, and consists of a fragment of whitlock semitranslucent glistening tissue (0.4 x 0.3 x 0.1 cm). Section code: (A) tissue. Specimen entirely submitted. 12/13/16 ICD-9 CODES: CPT CODES: 1: 92154 Electronically Signed Out Loli Rae MD [facility] Pathology [facility] [address], [place] [address] Technical component performed at [facility], [facility] [address], [place], [address]
--- NOTE | 2016-12-16 12:17 | PATH ---
SURGICAL PATHOLOGY Attending Physician:Sanjuana Ansari MD CASE STATUS: Signed Out PATIENT NAME: CHRISTY SANTO PID: [id number] : 1955 DATE COLLECTED:12/11/2016 00:00 SPECIMEN: 1: Anus, Biopsy 2: Anus, Biopsy 3: Anus, Biopsy CLINICAL HISTORY: ANORECTAL MASS BIOPSY OF CIRCUMFERENTIAL ANAL MASS 1). 3 O'CLOCK, LITHOTOMY 2). 6 O'CLOCK, LITHOTOMY 3). 11 O'CLOCK, LITHOTOMY FINAL DIAGNOSIS: 1-3. Anorectal Mass, 3 o'clock, 6 o'clock, 11 o'clock, Lithotomies: Invasive colonic adenocarcinoma, moderately differentiated, arising in a background of ulcer. Carcinoma undermines squamous epithelium. Lymphovascular invasion not identified. No loss of nuclear expression of MMR proteins. See comment. ICD10: C20 NOTE: As part of routine quality assurance consultant, Dr. Chris Jimenez also reviewed selected slides and agrees with the diagnosis. Dr. Rae discussed the preliminary findings with Dr. Barbara Ansari and Dr. Lila Guerrero on 12/15/2016. GROSS DESCRIPTION: The specimens are received in formalin, labeled with the patient's name, and sublabeled as the following: (1) anal tissue 3:00; (2) anal tissue 6:00; (3) anal tissue 11:00. (1) The specimen consists of a piece of whitlock-white glistening rubbery tissue (0.8 x 0.6 x 0.5 cm) with a ching-white semi-translucent cut surface. Ink code: black-resection margin. Section code: (1A) tissue, serially sectioned. Specimen entirely submitted. (2) The specimen consists of a piece of whitlock-white glistening rubbery tissue (1.3 x 1.1 x 0.5 cm) with a ching-white semi-translucent cut surface. Ink code: black-resection margin. Section code: (2A) tissue, serially sectioned. Specimen entirely submitted. (3) The specimen consists of a piece of whitlock-white glistening rubbery tissue (0.7 x 0.5 x 0.3 cm) with a ching-white semi-translucent cut surface. Ink code: black-resection margin. Section code: (3A) tissue, serially sectioned. Specimen entirely submitted. 12/13/16 MICRO DESCRIPTION: Immunohistochemical stains were performed at the request of Dr. Ansari to further characterize the carcinoma. All controls showed appropriate reactivity. Results: CDX2:Uniformly positive. Villin:Uniformly positive. CK7:Negative. OM57Mwnpshre positive. PSA:Negative. SATB2:Uniformly positive. MLH1:Intact nuclear expression. MSH2:Intact nuclear expression. MSH6:Intact nuclear expression. PSM2:Intact nuclear expression. Interpretation: The morphology and immunophenotype is consistent with a primary colorectal adenocarcinoma with no loss of nuclear expression of MMR proteins: low probability of microsatellite instability-high (MSI-H). (Background nonneoplastic tissue/internal control with intact nuclear expression. These results should not be considered in isolation and clinical correlation with genetic counseling is recommended to assess the need for germline testing.) * This test was developed and its performance characteristics determined by [employer]. It has not been cleared or approved by the U.S. Food and Drug Administration. The FDA has determined that such clearance or approval is not necessary. This test is used for clinical purposes. It should not be regarded as investigational or for research. ICD-9 CODES: CPT CODES: 1: 76508, 23312, 05428(9) 2: 26722 3: 45706 Electronically Signed Out Loli Rae MD [facility] Pathology [facility] [address], [place] [address] Technical component performed at [facility], [facility] [address], [place], [address]
--- NOTE | 2016-12-17 15:00 | NUR ---
Post Discharge Note FIELD COUNSEL received telephone call from patient and his sister. They state that they are awaiting results from oncology workup and have questions about specific paperwork and documentation that they need to complete. FIELD COUNSEL cannot advise at this time but informed oncology FIELD COUNSEL, Nik ([phone]) of their concerns. He will follow up with the patient and his sister to answer their questions now that patient is discharged. JUAN Springer
--- NOTE | 2016-12-18 17:58 | CCA NOTE ---
[facility] [address] [place] [id number] MEDICAL ONCOLOGY OFFICE NOTE PATIENT: CHRISTY SANTO : 1955 MR#: [id number] DATE: 12/10/2016 JOB ID: [id number] DATE: 12/18/2016 SUBJECTIVE: The patient is a 61-year-old is gentleman with widely metastatic colorectal cancer. Biopsy of the rectal/anal lesion returned positive for invasive colonic adenocarcinoma, moderately differentiated. Carcinoma undermined squamous epithelium. Lymphovascular invasion was not identified. There was no loss of MMR proteins. CT imaging of the brain showed no intracranial disease, but CT of the chest, abdomen, and pelvis showed a distal rectal mass, enlarged perirectal lymph nodes, and extensive hepatic and pulmonary metastases. He has frequent liquid stools, but denies any active bleeding at this time. He denies any current rectal pain. Overall, he "feels pretty good." He can get around and take care of his animals. He notes some swelling in his feet. OBJECTIVE: Vitals: T 37.5, P 94, R 16, BP 110/64. Weight 137.4 pounds (62.3 kg). HEENT: Conjunctivae pink. Mucous membranes moist. No oral lesions. Nodes: No adenopathy in the neck, axilla, or groin. Chest: Clear to auscultation and percussion throughout. Cardiac: Regular rate and rhythm with normal S1 and S2. Abdomen: Soft, nontender. Normoactive bowel tones. No splenomegaly or masses. Extremities: Two to 3+ bilateral lower extremity edema, 1+ distal pulses. No calf tenderness. LABORATORIES: WBC 17.1 with 90% neutrophils, hemoglobin 8.3, hematocrit 26.9%, platelets 761,000. BUN 18, creatinine 0.69, glucose 180. AST 86, ALT 46, alkaline phosphatase 916, total bilirubin 0.8, total protein 5.0, albumin 2.2. 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 GI evaluation found a large rectal mass, which at surgical biopsy was a moderately differentiated adenocarcinoma, consistent with colorectal primary rather than an anal primary, which would be squamous. He has regional lymphadenopathy as well as extensive liver metastases replacing over half of his liver and innumerable pulmonary metastases. We discussed options, which would include immediate palliative care with hospice versus active treatment with chemotherapy. I explained that without treatment life expectancy could be as long as six months, but more likely two to three months. With treatment, he could potentially live 1-2 years, possibly longer if he had an excellent response. He would like to think about his options further. As for chemotherapy, we discussed the FOLFOX regimen. Given his risk for a bleeding, I would not add Avastin, at least not initially. We will speak by phone next week once the patient has made a decision. If he opts for chemotherapy then we would discuss Port-A-Cath placement with Dr. Ansari. CC: Dr. Ortiz
--- NOTE | 2016-12-26 12:08 | CCA NOTE ---
[facility] [address] [place] [id number] MEDICAL ONCOLOGY OFFICE NOTE PATIENT: CHRISTY SANTO : 1955 MR#: [id number] DATE: 12/10/2016 JOB ID: [id number] DATE: 12/26/2016 SUBJECTIVE: The patient is a 61-year-old gentleman with metastatic rectal adenocarcinoma, confirmed at biopsy of his rectal lesion. I called him at home earlier today to discuss his treatment. He is still procrastinating, and unable to make a decision at this time. I encouraged him to proceed with treatment, but he would like to take more time in his decision process. We agreed that I would call again next week to rediscuss his options.
== END 2016-12-13 14:10 | disposition home or self-care (01) | DRG 375 ==
LOC: SED 07:39 → PCC 10:58
PROVIDERS: ADMIT Family Medicine; ATTEND Family Medicine
PROC: 30233N1 Transfusion of Nonautologous Red Blood Cells into Peripheral Vein, Percutaneous Approach (ICD-10-PCS; principal; 2016-12-10)
PROC: 0DBQXZX Excision of Anus, External Approach, Diagnostic (ICD-10-PCS; 2016-12-11)
PROC: 0DB38ZX Excision of Lower Esophagus, Via Natural or Artificial Opening Endoscopic, Diagnostic (ICD-10-PCS; 2016-12-11 15:15)
DX: C19 Malignant neoplasm of rectosigmoid junction (principal); K92.1 Melena; E87.2 Acidosis; C78.7 Secondary malignant neoplasm of liver and intrahepatic bile duct; C78.00 Secondary malignant neoplasm of unspecified lung; F17.210 Nicotine dependence, cigarettes, uncomplicated; R55 Syncope and collapse; D47.3 Essential (hemorrhagic) thrombocythemia; D50.0 Iron deficiency anemia secondary to blood loss (chronic)

== ENCOUNTER 2016-12-30 09:21 | Inpatient (IN) | payer OTHER ==
[~2016-12-30] VITALS: Ht 182.9 cm; Wt 64.2 kg
[2016-12-30] VITALS (14 sets, daily range): BP systolic 94–112; BP diastolic 41–64; PULSE 66–89; RESP 16–23; O2SAT 93–100
[~2016-12-30 09:21] MED LIST: IRON1TAB97 PO; MULT-1086 PO; OMEG1CAP99 PO
--- NOTE | 2016-12-30 09:23 | ED.REPORT ---
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 The pt reports that he was using the bathroom when he passed a "copious amount of what appeared to be red blood with small clots." He c/o diarrhea, which he states is chronic. He denies lightheaded, weakness, abdominal pain, chest pain, dizziness, nausea, melena, SOB, and vomiting. The pt reports that he has experienced similar symptoms previously. Nursing Notes Stated Complaint: GI BLEED Chief Complaint: Gi bleed Nursing Notes Reviewed: Yes Allergies: Coded Allergies: No Known Allergies (Unverified , 12/30/16) Scheduled Iron,Carbonyl/Vit C/Vit B12/FA (Iron 100 Plus Tablet) 1 Each Tablet 1 EACH PO DAILY Multivit-Min/Iron Fum/Folic AC (Icwql-Xhngrra-Epmqzmph Tablet) 7.5 Mg Iron-400 Mcg Tablet 1 TABLET PO DAILY [place]-3 Fatty Acids/Fish Oil (Fish Oil 1,200 mg Softgel) 1 Each Capsule 1 CAPSULE PO DAILY General Time Seen by Provider: 09:50 Chief Complaint Chief Complaint: Stool bright red blood Hx Obtained From: Patient, EMS Arrived By: Ambulance Onset Occurred: Just prior to arrival Symptom Duration: Since onset Severity: Current: No pain currently Severity: Maximum: No pain Recent Healthcare: Recent doctor visit Similar Sx Previous: Yes Past Medical History Past Medical History Metastatic rectal adenocarcinoma that has metastasized to his liver and lungs Seizures Kidney stones Diarrhea, chronic Past Surgical History Finger Smoking History Current Every Day Smoker Social History Alcohol Use: "Social" 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 Physical Exam Initial Vital Signs Vital Signs (First) Date Time Temp Pulse Resp B/P Pulse Ox O2 Delivery O2 Flow Rate FiO2 12/30/16 09:34 36.9 89 23 94/44 100 Room Air Initial VS: Reviewed Head / Eyes: Atraumatic, Normocephalic Neck: Supple, Full range of motion Extremities: Vascular intact, Neuro intact Skin: Warm, Dry, No cyanosis Neurologic: Alert, Oriented, Nonfocal Psychiatric: Mood/affect normal, Behavior normal General/Constitutional: Awake, Alert Appearance / Presentation: Positive: Pale Respiratory / Chest: Atraumatic, Breath sounds NL, Breath sounds = bilat Cardiovascular: Heart rate NL, Regular rhythm, Heart sounds NL, No murmurs Lower Ext Edema: Positive: Bilateral 2+ Abdomen: Atraumatic, Soft, Non-tender RECTUM: Gross bright red blood around rectum Interpretation & Diagnostics Lab Results Interpretation Result Diagram: 12/30/16 0940 12/30/16 0940 Test 12/30/16 09:40 White Blood Count 19.1th/mm3 (3.8-10.1) Red Blood Count 2.26mil/mm3 (4.40-5.80) Hemoglobin 5.8g/dL (13.8-17.2) Hematocrit 19.1% (41.0-50.0) Mean Corpuscular Volume 84.5fL (81-100) Mean Corpuscular Hemoglobin 25.7pg (27.0-35.0) Mean Corpuscular Hemoglobin Concent 30.4% (32.0-37.0) Red Cell Distribution Width 23.7% (12.3-15.4) Platelet Count 674bil/L (150-400) Neutrophils (%) (Auto) 84.5% (40-74) Lymphocytes (%) (Auto) 6.0% (14-46) Monocytes (%) (Auto) 8.8% (4-12) Eosinophils (%) (Auto) 0.1% (0-5) Basophils (%) (Auto) 0.1% (0-3) Prothrombin Time 12.2sec (8.1-12.5) Prothromb Time International Ratio 1.14ratio Sodium Level 132mEq/L (134-144) Potassium Level 4.1mEq/L (3.5-5.2) Chloride Level 95mEq/L (97-108) Carbon Dioxide Level 21mmol/L (18-29) Blood Urea Nitrogen 11mg/dL (8-27) Creatinine 0.78mg/dL (0.76-1.27) Estimat Glomerular Filtration Rate 107mL/min (>59) Glucose Level 96mg/dL (60-99) Calcium Level 7.6mg/dL (8.5-10.1) Total Bilirubin 1.0mg/dL (0.0-1.2) Aspartate Amino Transf (AST/SGOT) 106U/L (0-50) Alanine Aminotransferase (ALT/SGPT) 46U/L (0-44) Alkaline Phosphatase 776U/L (25-160) Total Protein 5.6g/dL (6.4-8.4) Albumin 2.1g/dL (3.4-5.0) ECG Interpretation ECG Interpretation: Sinus rhythm with a rate of [address] changes T wave inversions in AVR Unchanged from previous Time: 10:53 Interpreted by: ED physician Re-Eval/Medical Decision Med Decision/Clinical Course 61-year-old male recent diagnosis several weeks ago of colorectal cancer with liver and lung metastases presenting with GI bleed. He has bright red blood per rectum. His hemoglobin is 5.8. 2 units PRBCs were ordered. I consulted GI who recommended blood. I consulted Gen. surgery who will see patient. Source of Hx: Old records Re-Evaluation/Progress #1: Time of Eval: 09:52 Re-Evaluation/Progress Note: Informed pt of plan for admission. Pt understands and agrees with plan for admission. The pt reports that he would like CPR if necessary. All questions addressed. Re-Evaluation/Progress #2: Time of Eval: 10:11 Re-Evaluation/Progress Note: Pt rechecked. Discussed pt's treatment. All questions addressed. Re-Evaluation/Progress #3: Time of Eval: 10:18 Re-Evaluation/Progress Note: Pt rechecked. Pt reports that he is willing to have surgery for his rectal adenocarcinoma. Re-Evaluation/Progress #4: Time of Eval: 10:31 Re-Evaluation/Progress Note: Pt rechecked. Informed pt of consultation with surgeon. All questions addressed. Consultation #1: Referral / Consult Name: Michel Crandall MD Call Returned at: 10:15 Trick Rodeo Rider: Agrees with eval, Agrees with plan Note: Consulted with GI. Discussed pt's case. Consultation #2: Referral / Consult Name: Lopez Albright MD Consulted With: Surgeon Call Returned at: 10:27 Trick Rodeo Rider: Will see patient, Agrees with eval, Agrees with plan Note: Discussed pt's case and pt's decision regarding surgery. Consultation #3: Referral / Consult Name: Lorenzo Quick MD Consulted With: Hospitalist Call Returned at: 10:28 Trick Rodeo Rider: Will see patient, Agrees with eval, Agrees with plan, Accepts admit Counseled Regarding: Diagnosis, Lab results, Need for admission Discharge & Departure Impression: Primary Impression: Rectal adenocarcinoma Additional Impression: GI bleed GI bleed type/associated pathology: unspecified gastrointestinal hemorrhage type Qualified Code: K92.2 - Gastrointestinal hemorrhage, unspecified Disposition: ADMITTED TO HOSPITAL Discharge Condition All VS Reviewed: Yes Condition: Stable Referrals: More Culp MD (PCP) Crit Care Except Billable Proc Time Spent: 30-74 minutes (40 minutes) Services Performed: Patient management by me, Time spent at bedside, Reviewing test results, Reviewing imaging, Discussing patient care, Documentation in record Scribe Attestation Portions of this note were transcribed by Lou Braga. I, Dr. Martin personally performed the history, physical exam and medical decision-making; I reviewed and confirmed the accuracy of the information in the transcribed note. Signed by: Emily Bella, 12/30/16. copies to: More Culp MD, Ben M MD Dec 30, 2016 09:23 Lou Cornelius Dec 30, 2016 09:59
[2016-12-30] MEDS ORDERED: 0.9% Sodium Chloride 1,000 ML IV ONE ×2 (09:47→09:55)
[2016-12-30 09:54] LABS: BASOPHILS % (AUTO) 0.1 % (0-3); EOSINOPHILS % (AUTO) 0.1 % (0-5); MONOCYTES % (AUTO) 8.8 % (4-12); Mean Corpuscular Hemoglobin 25.7 pg (27.0-35.0); Mean Corpuscular Volume 84.5 fL (81-100); NEUTROPHILS % (AUTO) 84.5 % (40-74); Platelet Count 674 bil/L (150-400)
[2016-12-30 10:10] LABS: INR 1.14 ratio
[2016-12-30] MEDS ORDERED: 0.9% Sodium Chloride 250 ML ONE ×2 (11:14→14:10)
[2016-12-30] MEDS ORDERED: Alum-Mag Hydrox-Simeth 30 mL Suspension PO PRN (13:10)
[2016-12-30] MEDS ORDERED: Polyethylene Glycol (PEG) 17 Gm Powder PO PRN (13:10)
[2016-12-30] MEDS ORDERED: Ondansetron 2 mg/mL 2 mL Inj IVPUSH PRN (13:10)
--- NOTE | 2016-12-30 13:59 | PCM.HPMED ---
Subjective Date of Service Dec 30, 2016 Primary Provider: Admitting Physician: Lorenzo Quick MD Primary Care Physician: More Culp MD Attending Physician: Lorenzo Quick MD Chief Complaint: GI bleed History of Present Illness: Tomer Bear is a 61 year old gentleman with PMH tobacco and alcohol use, and chronic diarrhea who presents with profuse rectal bleeding. The patient reports that this morning he went to the bathroom and began to bleed from his rectum profusely and began to feel weakened but no pain. Since his last hospitalization (12/10/16) he reports a 10 pound weight gain but overall a loss of 30-40 pounds over the past year and a half. Since his last visit he has continued to experience diarrhea daily and generalized weakness but denies any other episodes of hematochezia. He also reports that his rectal mass is not painful. In the ED he was afebrile with a Temp-36.9, HR-81, BP-94/41, RR-16 and O2 sat of 98% on room air. His labs were significant for WBC-19.1, Hg-5.8, Hct-19.1 and Plt-647. Hyponateremia-132, hypochloremia-95, AST 106, ALT 46 and Alk phos of 776. ECG showed PACs Review of Systems: Patient denies fever/chills, night sweats, changes in vision or hearing, headaches, chest pain, shortness of breath, abdominal pain, syncope Allergies Coded Allergies: No Known Allergies (Unverified , 12/30/16) Home Medications Multivit-Min/Iron Fum/Folic AC (Kzxvw-Azhtzmn-Ptaptbdh Tablet) 7.5 Mg Iron-400 Mcg Tablet 1 EACH PO [place]-3 Fatty Acids/Fish Oil (Fish Oil 1,200 mg Softgel) 1 Each Capsule 1 EACH PO Iron,Carbonyl/Vit C/Vit B12/FA (Iron 100 Plus Tablet) 1 Each Tablet 1 EACH PO DAILY PMH Metastatic rectal adenocarcinoma that has metastasized to his liver and lungs Seizures Kidney stones Diarrhea, chronic Family History Mother- due to stroke Father- due to lung cancer in his 80s Brother- due to lung cancer at 61 Social History Hx Alcohol Use: No Hx Substance Use: No Hx Tobacco Use: Yes Smoking Status: Current Every Day Smoker Exam Vital Signs Vital Sign - Last Date Time Temp Pulse Resp B/P Pulse Ox O2 Delivery O2 Flow Rate FiO2 12/30/16 12:37 72 12/30/16 12:17 36.8 16 100/47 96 Room Air Exam General: Pale, cachectic, no acute distress Head: Normocephalic, atraumatic. External ears without defect. Eyes: Pupils equal, round, and reactive to light and accommodation. Anicteric sclerae, moist conjunctivae. Neck: Normal range of motion, no lymphadenopathy noted Cardiovascular: Regular rate and rhythm with no murmurs, rubs, or gallops appreciated Pulmonary: Clear to auscultation bilaterally with no crackles, wheezes, or rhonchi. Normal respiratory effort with no use of accessory muscles. Abdomen: Bowel tones present. Distended, firm, nontender. Extremities: No clubbing, cyanosis, edema Skin: Normal temperature, turgor, and texture; no rash, ulcers, or subcutaneous nodules appreciated. Neurological: Cranial nerves grossly intact. Reflexes, coordination, and sensory function within normal limits. Psychiatric: Normal mood and affect. Alert and oriented to person, place, and time Lab and Diagnostics Result Diagram: 12/30/16 0940 12/30/16 0940 X-Rays, CTs and MRIs CT CHEST, ABDOMEN AND PELVIS WTIH CONTRAST IMPRESSION: 1. Extensive pulmonary metastases. 2. Extensive hepatic metastases. 3. Masses in the distal colon at the sigmorectal junction, as well as anus. 4. Enlarged perirectal lymph nodes consistent with metastases. 5. Small amount of free fluid. 6. A small hiatal hernia. 7. Bifid pancreatic tail. Dictated by: Narinder Walton M.D. on 12/10/2016 at 11:16 Approved by: Narinder Walton M.D. on 12/10/2016 at 12:00 12-lead ECG ECG Interpretation: Sinus rhythm with a rate of [address] changes T wave inversions in AVR Unchanged from previous Time: 10:53 Interpreted by: ED physician Additional Diagnostics: SURGICAL PATHOLOGY DATE COLLECTED:12/11/2016 00:00 SPECIMEN: 1: Anus, Biopsy FINAL DIAGNOSIS: 1-3. Anorectal Mass, 3 o'clock, 6 o'clock, 11 o'clock, Lithotomies: Invasive colonic adenocarcinoma, moderately differentiated, arising in a background of ulcer. Carcinoma undermines squamous epithelium. Lymphovascular invasion not identified. No loss of nuclear expression of MMR proteins. Loli Rae MD [facility] Pathology [facility] [address], [place] [address] Technical component performed at [facility], [address], [place], [address] Assessment & Plan Mr. Bear is a 61 year old male with history of tobacco and alcohol dependence , with one year history of chronic diarrhea brought into the ED via EMS for a near syncopal episode. Frequent Bloody Stool secondary to invasive adenocarcinoma, present on arrival, active Patient previously admitted to the hospital on 12/[address] at that time confirmed Pulmonary and hepatic mets; masses in the distal colon and anus; enlarged perirectal lymph nodes likely secondary to primary colon cancer After full workup oncology was consulted and followed up with as an outpatient. Patient elected at that time to forego medical management of any kind. - Rectal exam positive for small amount of gross blood and a rectal mass. - Biopsies from 12/11 shows invasive rectal adenocarcinoma - General surgery consulted, recommending removal of rectal mass, appreciate additional recommendations as appropriate. - Discussed with the patient concerning oncology consult placed on previous visit. Patient states that he has not decided for or against palliative chemotherapy at this point. Acute hypotension, present on arrival, active Patient presented with systolic blood pressures in the low 90s after 3.5 L of fluid relatively unchanged - IV normal saline when necessary to keep SBP above 85 - Continue to monitor Chronic Microcytic anemia requiring transfusion, present on arrival, active Due to ongoing blood loss from invasive adenocarcinoma - Hemoglobin 5.8 on admission - Transfused 2 units PRBCs on 12/30 - Continue daily iron supplementation - Monitor H&H Severe protein malnutrition, present on arrival, active Patient displays increased fluid accumulation in the lower legs bilaterally - Total protein 5.6, albumin 2.1 - Consider TPN for nourishment post surgically - Continue to monitor Metabolic Acidosis likely secondary to severe anemia, POA, Active - Pt recieved 2L of fluid in the ED prior to transfusion - Lactic acid within normal limits - Continue to monitor Leukocytsis, POA, active No signs of infection at this time, abd non tender and no dysuria reported, no temps - Likely due to stress reaction secondary to colon cancer - Continue to monitor Thrombocytosis, POA, active - Likely due to continued bleeding - Continue to monitor Disposition: Patient admitted under inpatient status with expected length of stay > 2 midnights for severity of present symptoms, complexities of treatment plan and risk for adverse event Pain Evaluation: Adequate Pain Control VTE Prophylaxis: Other (contraindicated due to GI bleed) VTE Mechanical Devices: Intermittant Pneumatic CD Resuscitation Status: CPR: Attempt Resuscitation Attending Statement The patient was seen and examined together with Dr. Olivares on 12/30/2016 and I agree with the history, exam and plan as outlined in the note above. . Angel Olivares DO Dec 30, 2016 13:59 Lorenzo Quick MD Jan 01, 2017 07:36
--- NOTE | 2016-12-30 14:21 | NUR ---
Ornamental Iron Worker D/A: BOOKKEEPER ASSISTANT spoke with patient's sister Angelique [phone], regarding ongoing psychosocial concerns and patient recent readmission to [facility]. Patient had an outpatient oncology appointment with Dr. Guerrero on 12/18/16. Per MD dictation, treatment options were discussed, however patient wanted time to "think about it". Per EMR, Patient was again contacted by oncology MD on 12/26/16 and Patient still had not made a decision regarding oncology treatment. 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 Patient takes care of this brothers rent, manages SSDI, and ensures that his basic care needs are addressed. Patient DPOA, Advnced Directives, Will, and POLST have not been completed. Patient's sister expresses significant concerns about the psychosocial needs of the patient and the patient's brother given patient's indecision about pursing oncology care and recent decline in functional status. 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 P: Care conference with patient and his sister on 12/18/16, patient provided with DPOA paperwork and [employer] application. Patient was strongly encouraged to communicate with [employer] about his change in health status and explore SSDI; and to consult with [employer] about his brother's payee status should the patient no longer be able to provide that assistance. Patient sister reported on 12/30/16, the patient had a scheduled appointment with Social Security on 12/30/16 but was unable to attend due to recent hospitalization. This mortgage loan underwriter contacted [facility] STACY Gudino and relayed the previously described information regarding the patient's complex psychosocial needs and familial concerns. BOOKKEEPER ASSISTANT will continue to monitor and provided support and assistance to the patient/family as psychosocial needs arise or indicated by the treatment team. JUAN Day
--- NOTE | 2016-12-30 14:49 | NUR ---
Admit Pt. was transferred from ER around 1210. On arrival, pt. was alert,, oriented, and JENKINS (weak). First unit of PRBC was started in ER. Pt. reported no pain. He had 1 maroon red diarrhea (incontinent) when he arrived. Pt. was cleaned and a brief was used to contain future diarrhea. Call light was placed within reach. Second unit of PRBC was started at 1438.
--- NOTE | 2016-12-30 15:01 | NUR ---
INTER-TREATMENT TEAM CONVERSATION : Spoke with William MARTINEZ at [facility] and he has been working with this patient and patient's sister since last admission. Patient is connected with and has had two visits with him, has provided treatment options and as of 12/26/16 patient has been unable to make a decision regarding treatment. William has spoke with sister and patient about DPOA and POLST, DPOA paper work was given to them. POLST will need to be addressed this admission if possible. Patient's sister Angelique is actively involved and willing to be support system for patient she can be reached at [phone]. Spoke with SMOKE [employer]ASER Staff Occupational Therapist about this phone call. Updated JUAN
[2016-12-30] MEDS ORDERED: 0.9% Sodium Chloride 1,000 ML IV PRN (15:40)
--- NOTE | 2016-12-30 16:21 | NUR ---
GI Pt. had another diarrhea since admission. The second BM was normal brown (not bloody).
--- NOTE | 2016-12-30 20:57 | PCM.CHPMED ---
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 He denies pain with this but he does note increased weakness and feeling lightheaded. In the last few months he staets that he generally has felt weak and tired with a notable decrease in appetite. Of note he He was admitted on 12/10 with symptomatic anemia secondary to GI bleeding with a Hb/Hct of 3.9/14.3 for which he received 4 units of pRBCs. During that admission a colonoscopy was attempted after CT abdomen showed a distal rectal mass, enlarged perirectal lymph nodes, and extensive hepatic and pulmonary metastases. Subsequently, General Surgery was consulted and the patient was taken to the operating room on 12/11 for rectal exam under anesthesia for biopsy. He was then discharged in stable condition on 12/13 with outpatient followup with Oncology planned. Since that time he reports a 10 pound weight gain but overall a loss of 30-40 pounds over the past year and a half. Additionally, he states that he continues to have diarrhea daily but denies any other episodes of hematochezia. He denies fever, chills, shortness of breath, abdominal pain, nausea, vomiting, headache, changes in vision, dysuria or hematuria. He does report difficulty initiating urination as well as a decreased urinary stream. He is a current daily smoker, reporting 'a couple' cigarettes per day. In the ED he was afebrile and hypotensive with a BP of 94/41, HR 81 and O2 sats were 98% on room air with a RR of 16. Labs were significant for microcytic anemia with a Hb -5.8, Hct -19., thrombocytosis with plts-647, leukocytosis ( wbc 19.1) with a left shift, AST 106, ALT 46 and Alk phos of 776. Review of Systems: A comprehensive review of systems was conducted with the patient and found to be negative except as above in the History of Present Illness. PMH Past Medical History Rectal adenocarcinoma with liver and lung metastasis Seizures Kidney stones Diarrhea, chronic Hypotension Syncope Tobacco dependence Surgical History Finger surgery otherwise denies. 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 HEENT: Normocephalic, PERRLA. Anicteric sclerae. Mucous membranes dry Lungs: Clear to auscultation bilaterally with no crackles, wheezes, or rhonchi. Cardiovascular: Regular rate/rhythm. No murmurs Abdomen: Soft, non-distended, non-tender. Hepatomegaly. Hypoactive bowel tones. Extremities: Upper/lower ext notable for muscle wasting. Distal pulses equal/ intact bilaterally. No edema. Neurological: Alert and oriented x3. Grossly neurologically intact. 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 Admitted for acute blood loss anemia secondary to GI bleeding related to colorectal cancer. Hematochezia in a patient with stage IV colorectal adenocarcinoma -Patient presented approximately 3 weeks ago with hypotension and severe anemia following a syncopal episode. Found to have colorectal cancer. Here again for recurrent lower GI bleeding related to malignancy. A colonoscopy was attempted during previous admission and was unsuccessful due to rectal mass. Thus it is unlikely a possibility at this time and General Surgery has been consulted as well. At this time, additional information if endoscopy were to be successful would not change the current treatment plan- Surgery. RECOMMENDATIONS: -Further evaluation and management of bleeding from colorectal mass per General Surgery. -From a GI standpoint, we cannot offer him anything further at [facility] to prevent further bleeding.. -Greatly appreciate General Surgery and Oncology recommendations and expertise. -GI will sign off at this time but remains available if needed. Additional problems managed by primary medicine team: -Severe protein malnutrition -Metabolic acidosis -Leukocytsis -Thrombocytosis . I have seen and examined the patient and agree with above. Problems: Pain Evaluation: Adequate Pain Control VTE Prophylaxis: Other (contraindicated due to GI bleed) VTE Mechanical Devices: Intermittant Pneumatic CD Resuscitation Status: CPR: Attempt Resuscitation Radhika Triana DO Dec 30, 2016 20:57 Michel Crandall MD Jan 02, 2017 09:13 -Management as above Leukocytosis, acute. Present on admission. Active. -Likely stress reaction. Possibly secondary to neoplasm and/or chronic inflammation. -Treat underlying cause -Monitor CBC Tomer Bear is a 61 year old gentleman with PMH tobacco and alcohol use, and chronic diarrhea who presents with profuse rectal bleeding. The patient reports that this morning he went to the bathroom and began to bleed from his rectum profusely and began to feel weakened but no pain. Since his last hospitalization (12/10/16) he reports a 10 pound weight gain but overall a loss of 30-40 pounds over the past year and a half. Since his last visit he has continued to experience diarrhea daily and generalized weakness but denies any other episodes of hematochezia. He also reports that his rectal mass is not painful. In the ED he was afebrile with a Temp-36.9, HR-81, BP-94/41, RR-16 and O2 sat of 98% on room air. His labs were significant for WBC-19.1, Hg-5.8, Hct-19.1 and Plt-647. Hyponateremia-132, hypochloremia-95, AST 106, ALT 46 and Alk phos of 776. ECG showed PACs Mr. Bear is a 61 year old male with history of tobacco and alcohol dependence , with one year history of chronic diarrhea brought into the ED via EMS for a near syncopal episode. Frequent Bloody Stool secondary to invasive adenocarcinoma, present on arrival, active Patient previously admitted to the hospital on 12/[address] at that time confirmed Pulmonary and hepatic mets; masses in the distal colon and anus; enlarged perirectal lymph nodes likely secondary to primary colon cancer After full workup oncology was consulted and followed up with as an outpatient. Patient elected at that time to forego medical management of any kind. - Rectal exam positive for small amount of gross blood and a rectal mass. - Biopsies from 12/11 shows invasive rectal adenocarcinoma - General surgery consulted, recommending removal of rectal mass, appreciate additional recommendations as appropriate. - Discussed with the patient concerning oncology consult placed on previous visit. Patient states that he has not decided for or against palliative chemotherapy at this point. Acute hypotension, present on arrival, active Patient presented with systolic blood pressures in the low 90s after 3.5 L of fluid relatively unchanged - IV normal saline when necessary to keep SBP above 85 - Continue to monitor Chronic Microcytic anemia requiring transfusion, present on arrival, active Due to ongoing blood loss from invasive adenocarcinoma - Hemoglobin 5.8 on admission - Transfused 2 units PRBCs on 12/30 - Continue daily iron supplementation - Monitor H&H -Severe protein malnutrition -Metabolic Acidosis likely secondary to severe anemia -Leukocytsis -Thrombocytosis Problems: VTE Prophylaxis: Other (contraindicated due to GI bleed) VTE Mechanical Devices: Intermittant Pneumatic CD Resuscitation Status: CPR: Attempt Resuscitation KongKaitlinRadhika M DO Dec 30, 2016 20:57 - Rectal exam positive for small amount of gross blood and a rectal mass. - Biopsies from 12/11 shows invasive rectal adenocarcinoma - General surgery consulted, recommending removal of rectal mass, appreciate additional recommendations as appropriate. - Discussed with the patient concerning oncology consult placed on previous visit. Patient states that he has not decided for or against palliative chemotherapy at this point. Acute hypotension, present on arrival, active Patient presented with systolic blood pressures in the low 90s after 3.5 L of fluid relatively unchanged - IV normal saline when necessary to keep SBP above 85 - Continue to monitor Chronic Microcytic anemia requiring transfusion, present on arrival, active Due to ongoing blood loss from invasive adenocarcinoma - Hemoglobin 5.8 on admission - Transfused 2 units PRBCs on 12/30 - Continue daily iron supplementation - Monitor H&H -Severe protein malnutrition -Metabolic Acidosis likely secondary to severe anemia -Leukocytsis -Thrombocytosis Problems: VTE Prophylaxis: Other (contraindicated due to GI bleed) VTE Mechanical Devices: Intermittant Pneumatic CD Resuscitation Status: CPR: Attempt Resuscitation Radhika Triana DO Dec 30, 2016 20:57 Patient presented with systolic blood pressures in the low 90s after 3.5 L of fluid relatively unchanged - IV normal saline when necessary to keep SBP above 85 - Continue to monitor Chronic Microcytic anemia requiring transfusion, present on arrival, active Due to ongoing blood loss from invasive adenocarcinoma - Hemoglobin 5.8 on admission - Transfused 2 units PRBCs on 12/30 - Continue daily iron supplementation - Monitor H&H -Severe protein malnutrition -Metabolic Acidosis likely secondary to severe anemia -Leukocytsis -Thrombocytosis Problems: VTE Prophylaxis: Other (contraindicated due to GI bleed) VTE Mechanical Devices: Intermittant Pneumatic CD Resuscitation Status: CPR: Attempt Resuscitation Radhika Triana DO Dec 30, 2016 20:57
--- NOTE | 2016-12-30 23:36 | CONS ---
[address] [address] CONSULTATION REPORT PATIENT: CHRISTY SANTO : 1955 MR#: [id number] ADMIT: 12/30/2016 JOB ID: [id number] DATE OF SERVICE: 12/30/2016 CHIEF COMPLAINT/IDENTIFICATION: I have been asked to see this 61-year-old man with rectal bleeding. HISTORY OF PRESENT ILLNESS: The patient was recently in the hospital where he was diagnosed with a fungating distal rectal/anal carcinoma with heavy burden in the liver and lung mets. Some consideration was given to port placement for palliative chemotherapy at that time, and the patient went home to considers his options. He returned today with bright red blood and brisk bleeding from the rectal tumor. GI feels that it was so friable that there they have nothing to offer in terms of intraluminal therapy. The patient's bleeding has stopped at this point, and he is being transfused. He tells me that he is able to eat, have diarrheal bowel movements, and is not obstructed clinically. I have been asked to follow him regarding his GI bleed. PAST MEDICAL HISTORY: History of seizures, history of kidney stones. No previous surgery. MEDICATIONS: Whrc-cab-gkciewi multivitamins. ALLERGIES: None. SOCIAL HISTORY: This patient is a smoker. Does not drink alcohol on a daily basis. FAMILY HISTORY: His parents are . He does have a sister who lives in the area. 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 REVIEW OF SYSTEMS: Per admission history and physical. PHYSICAL EXAM: Slender man in no acute distress, somewhat blunted affect. Sclerae are clear. Abdomen is nontender, palpable liver edge consistent with metastatic disease as seen on CT. IMAGING: I have reviewed his chest, abdomen, and pelvis CT from the other day that demonstrates a significant tumor burden in the lungs and liver, and what appears to be a very large perirectal adenopathy consistent with cancer. LABORATORY DATA: His admission hematocrit was 19.1 and his discharge hematocrit the other day was 26. His hematocrit this evening is 22.9. His previous CEA was 44.3. IMPRESSION/PLAN: Unfortunate, 65-year-old man, with advanced stage IV rectal cancer, who has been seen in consultation by Dr. Guerrero for consideration of palliative chemotherapy. His case is scheduled to be discussed at tumor board tomorrow. At this point, his rectal bleeding has ceased. I see in the medical notes it is expressed that General Surgery has been consulted and is recommending removal of the rectal mass. At this point, I would not recommend surgical intervention for removal of his rectal mass. He would require an "palliative" abdominoperineal resection with end colostomy, and at this point, I do not think that would be in the patient's best interest. If he does have persistent bleeding, some consideration for perhaps some sort of photocoagulation to stem the bleeding would be considered. At this point, he is not actively bleeding and he is not completely obstructed. I think the big issue is that he needs to decide whether he wants to proceed with palliative chemotherapy or whether he wants to go into hospice. I would recommend that he have a Palliative Care consultation tomorrow. As well, his case will be discussed at tumor board, and hopefully recommendations can be passed on to him by Dr. Guerrero or the hospitalist service tomorrow and he can move towards making his own best decision as to whether or not he wants to pursue palliative chemotherapy. That said, if he does pursue palliative chemotherapy and has a very good response, he might be considered for operation if he either develops complete obstruction due to tumor necrosis or uncontrollable bleeding due to tumor necrosis. I suspect, however, that an operation other than a port placement is not in his best interest now or anywhere in the future. General Surgery will follow up either with Dr. Ansari tomorrow or me on .
[2016-12-31 02:56] LABS: BASOPHILS % (AUTO) 0 % (0-3); EOSINOPHILS % (AUTO) 0 % (0-5); MONOCYTES % (AUTO) 7.9 % (4-12); Mean Corpuscular Hemoglobin 26.8 pg (27.0-35.0); Mean Corpuscular Volume 84.2 fL (81-100); NEUTROPHILS % (AUTO) 86.7 % (40-74); Platelet Count 486 bil/L (150-400)
[2016-12-31 03:16] VITALS: BP 103/51; PULSE 83; RESP 16; O2SAT 96
[2016-12-31 03:21] LABS: Magnesium 2.1 mg/dL (1.6-2.6); Phosphorus 3.2 mg/dL (2.5-4.9)
--- NOTE | 2016-12-31 05:51 | NUR ---
loose stools pt having 3 loose stools this shift, some bloody smears but dosen't appear to be actively bleeding. H/H 7.3/22.9 MD aware
--- NOTE | 2016-12-31 05:55 | NUR ---
calcium pts calcium this morning 6.9 and albumin 1.7 corrected calcium 8.4 johnny GARBER no new orders received
[2016-12-31 08:30] VITALS: BP 110/56; PULSE 75; RESP 18; O2SAT 98
[2016-12-31 10:12] VITALS: PULSE 80
[2016-12-31 11:41] VITALS: BP 106/62; PULSE 77; RESP 17; O2SAT 98
--- NOTE | 2016-12-31 11:53 | NUR ---
Social Work: Initial Assessment/Multidisciplinary Rounds D: Per EMR review, pt is a 61 year old male admitted for GI Bleed. Patient is [facility]. PCP is More Culp MD. NOK is Angelique Bear, sister, . Advanced directives not completed- GRANT WRITER provided the patient with a copy and encouraged him to consider completing them. Readmit score is high, 6/8. GRANT WRITER met with the patient at bedside. Social work/dcp role explained, contact information and discharge planning checklist provided. See initial assessment. Pt is a readmission and states that after his last discharge he went home. He lives in [place], alone. His sister Angelique has been checking in regularly. The patient states that he continues to be I with ADLs and mobility but has noticed "my mind is slowing down." Patient states that he has had several appointments with Dr. Guerrero but is not sure he wishes to do any kind of treatment and is leaning towards hospice services. He states that he has a palliative care visit scheduled today and is eager to speak with them about what his options are. Pt discussed in Multidisciplinary rounds. Capacity for self care discussed; no concerns or needs at this time. Patient is functional and able to care for self and may be able to discharge home and have hospice follow if he chooses this plan. Patient has had several appointments with the oncology center but has not decided yet if he wishes to pursue palliative treatment or admit on to hospice. Palliative care team confirms they are meeting with the patient to day to review gaols of care. A: Pt who is I at baseline. P: Evolving; GRANT WRITER to follow up with palliative care team and patient re: discharge planning once goals of care are defined. JUAN Springer Addendum: 12/31/16 at 1203 by FABIO ESTRADA Amended: Links added.
--- NOTE | 2016-12-31 12:20 | NUR ---
Palliative Care Palliative Care received verbal order from Dr Olivares 12/31/16 to assist with goals of care. Patient admitted 12/30/16. Palliative Care to follow. Karol Holliday
--- NOTE | 2016-12-31 13:41 | NUR ---
Palliative care note D/A: Pt referral for palliative care kindly received today from Dr. Olivares. This worker and Dr. Pyle met with pt at length today to discuss his goals of care. Pt noted during discussion that he was desirous of a hospice consult. Discuss Hospice Services sheet with him. [facility]. Pyle kindly writes order for hospice consult. Pt notes that he has been given POLST and DPOA forms at oncology and has not yet completed them. He notes that it has been difficult for him to get "all this paperwork done." This worker asks who he might wish to designate when he is able to complete the paperwork and he indicates it would be his sister Angelique Bear (Roselynn). Home [phone] cell [phone] work [phone] When discussing DPOA, pt alludes to feeling as he does not need someone else chosen to make decisions for him as he will not lose his mental capacity as he does not have a mental illness. Discuss how people with physical illnesses can also lose their capacity for decision making in a variety of situations. Ask if he has discussed his wishes with his sister, he indicates that she will know what he wants. He also notes that he has a brother in [place], listed on his admit sheet. Cesar Bear at [phone]. 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 Joe lives in a trailer in [place] and has bipolar disorder. Pt is his payee through Social Security and does a variety of other things for him. Dr. Pyle discusses code status with pt. Pt initially thinks he might wish for resuscitation but later changes his mind, reflecting that if he has a heart attack and dies, it will be his time to go. Pt denies any pain or symptom needs at this time. Phone call to Morenita at [facility] Referral Desk. Discuss with Morenita and note that today, pt sister is off work and will be able to attend info visit so that goal is an info visit today, if at all possible. Morenita able to arrange for 1500 [facility] info visit for today. Ezekiel MARTINEZ to provide info visit. Phone call to pt sister Angelique . Discuss above with her. She is relieved to hear that pt is willing to discuss his medical care and that he is making movement towards picking someone to be his DPOA. He had not talked to her about being his DPOA and she does not know what he would like in regards to decision making but is ok with being his DPOA. She does indicate that she and pt are making active plans for her to become brother Joe's Social Security payee. She is able to attend [facility] info visit for today at 1500. She is relieved to hear that Dr. Pyle will meet with pt again to discuss his goals and wishes further. Later learn from oncology team that Dr. Guerrero is able to meet with pt on , 01/01/17 at 0700 and wonders if sister Angelique might be able to attend at the same time. Phone call to Angelique who notes she will be in pt room at that time and can attend. Msg left for William MARTINEZ at Oncology. Msg left for [facility] ACCOUNT LIAISON regarding above plan. Dr. Pyle aware as well. P: Palliative care to follow. Jackelyn PA, CCM
--- NOTE | 2016-12-31 14:23 | NUR ---
NUTRITION ASSESSMENT: ASSESS: Pt is a 61yo M admitted for GI bleed. He has been found to have metastatic (stage IV) colorectal cancer with extensive liver and lung metastases. Oncology and Palliative care are following. Pt is to have Hospice visit soon, as well. Pt reported ~50lbs wt loss over the last year. UBW of 180lbs. He reported that at his lowest his wt was 130lbs. His current wt is 141lbs. He has been able to gain ~11lbs back since discharge from the hospital. 27% wt loss x1 year= severe wt loss. Pt reported that he has been able to eat Breakfast and dinner every day. He usually eats cereal, milk and fruit for breakfast and has meals on wheels deliver dinner. His sister bought him chocolate ensure but he finds that if he drinks it he is too full to eat his meals. PMHX: tobacco dependence, hypotension, syncope LABS: Reviewed. Housekeeping Manager .43, glu 58, ca 6.9, t.bili 2.5, AST 72, Alk phos 594, alb 1.7 MEDS: Reviewed. GI: SKIN: External anal masses, visible fat loss in arms CURRENT WTS: 64.2kg, BMI 19.2kg/m2, admit wt: 63.6kg, IBW 80.9kg, UBW: 81.8kg, 27% wt loss x1 year= severe wt loss DIET: General, PO 100%x1 meal EST. NEEDS: Ca/ wt gain Kcals: 1930-2250kcal/day (30-35kcal/kg) Pro: 95-120g/day (1.2-1.5g/kg IBW) NUTRITION DIAGNOSIS: 1.) Severe pro/kcal malnutrition in the context of chronic disease related to colon ca with mets as evidence by 27% wt loss x1 year, PO intake of <75% of estimated energy requirements for >1 month, visible fat loss in arms and BMI of 19kg/m2 NUTRITION INTERVENTION: 1.) Will send Ensure CL on dinner tray. Discussed how Ensure CL is more like juice and will likely be less filling. Pt agreed to try it. RD will f/u to see how pt liked it. 2.) Discussed using whole milk with his cereal for breakfast to get more kcal/fat in the morning. 3.) High kcal/pro handouts were given to pt during last admit MONITOR / EVAL: wt, GI, PO, labs, POC, nutrition status. Will continue to monitor per high nutrition risk guidelines
--- NOTE | 2016-12-31 14:26 | NUR ---
stool, skin, consults pt. incontinent of loose stool x2 so far this shift; skin around rectum red, blancheable. Calmoseptine placed, turning pt. q2hrs; mepilex not placed due to loose stool. Pt. had palliative consult today; to have hospice consult with sister.
--- NOTE | 2016-12-31 15:33 | PCM.CONPAL ---
Date of Service Dec 31, 2016 Date of Hospital Admission: Dec 30, 2016 at 11:19 Date of Palliative Consult: Dec 31, 2016 Requesting Provider: Angel Olivares DO Reason Palliative Care Consult: Goals of Care Discussion Hospital Unit @time of consult: Progressive Care Palliative Care Recommendation 61-year-old gentleman with history of metastatic colorectal cancer, admitted with lower GI bleed and severe anemia. Has not yet decided whether he wants to progress to hospice care versus undergoing palliative chemotherapy Palliative medicine consulted to assist in determination of goals of care Summary of palliative recommendations: -Symptom management (Pain/other)- quite comfortable. Continue current management per medical team. -DPOA/Advanced Directives/POLST- discussed advanced directive wishes with him today. He ultimately decided that he would be DNR/DNI/Limited interventions, but had not yet made a decision whether to proceed with palliative chemotherapy. I spoke with Dr. Guerrero of oncology who will review options with the patient tomorrow morning at 0700. Hospice consult possible thereafter if he decides to not pursue chemotherapy. -Family/emotional support- sister Angelique is his primary contact. He has not yet completed POA/advanced directive documentation but anticipates he'll do so in the coming days. Angelique will be on hand for meeting with oncology in the morning and then hospice information visit in the afternoon. Additional Medical Diagnoses with primary management by Hospitalist team include : Frequent Bloody Stool secondary to invasive adenocarcinoma, present on arrival, active Patient previously admitted to the hospital on 12/[address] at that time confirmed Pulmonary and hepatic mets; masses in the distal colon and anus; enlarged perirectal lymph nodes likely secondary to primary colon cancer Acute hypotension, present on arrival, active Chronic Microcytic anemia requiring transfusion, present on arrival, active Severe protein malnutrition, present on arrival, active Metabolic Acidosis likely secondary to severe anemia, POA, Active Leukocytsis, POA, active Thrombocytosis, POA, active Problems: End of Life Preferences DNR/DNI/limited interventions for now Goals of Care Patient still considering whether or not to proceed with palliative chemotherapy Disposition Likely home Resuscitation Status Resuscitation Status: DNR/DNI:Do Not Resuscitate/Intubate POLST Updates/Changes Previous POLST?: No . Advanced Care Planning Address: Code status change Pain: None Pt History History of Present Illness Per admission H&P: Tomer Bear is a 61 year old gentleman with PMH tobacco and alcohol use, and chronic diarrhea who presents with profuse rectal bleeding. The patient reports that this morning he went to the bathroom and began to bleed from his rectum profusely and began to feel weakened but no pain. Since his last hospitalization (12/10/16) he reports a 10 pound weight gain but overall a loss of 30-40 pounds over the past year and a half. Since his last visit he has continued to experience diarrhea daily and generalized weakness but denies any other episodes of hematochezia. He also reports that his rectal mass is not painful. In the ED he was afebrile with a Temp-36.9, HR-81, BP-94/41, RR-16 and O2 sat of 98% on room air. His labs were significant for WBC-19.1, Hg-5.8, Hct-19.1 and Plt-647. Hyponateremia-132, hypochloremia-95, AST 106, ALT 46 and Alk phos of 776. ECG showed PACs Palliative medicine consulted to assist patient with determination of goals of care Prior to visiting, heart reviewed his updated records in the EMR in detail, spoke with his bedside nurse and hospitalist and eventually spoke with his oncologist Dr. Guerrero. On arrival, patient is lying in bed. He appeared weak but was oriented and appropriate. Denied any significant discomfort of any sort. We reviewed history of his medical problems that led to this admission, talked about his concerns regarding potential chemotherapy versus hospice. He initially indicated that he would want to wait before starting palliative chemotherapy until symptoms became unbearable- and I explained carefully to him that such an approach was not reasonable or functional. He understood this and indicated that it would contribute to his decision-making. Discussed the nature of hospice support and how it might interface with his current living situation- he has been living alone in his own home with assistance from his sister Angelique. He noted that while he and Angelique had been talking about getting important paperwork completed, they have not yet completed POA or POLST documentation. We discussed advanced directive issues in detail. Initially he said that he would want all possible resuscitation efforts, but then we talked further about what that would really mean and what impact it would have on his bigger picture. After further discussion, he noted that such interventions would not make much sense and that he preferred to be DNR/DNI. 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 Patient takes care of this brothers rent, manages SSDI, and ensures that his basic care needs are addressed. Patient DPOA, Advnced Directives, Will, and POLST have not been completed. Patient's sister expresses significant concerns about the psychosocial needs of the patient and the patient's brother given patient's indecision about pursing oncology care and recent decline in functional status. 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 Social Support: As above Living Situation: As above Palliative Performance Scale PPS Patient Status: Baseline (recent) PPS Ambulation: Mainly Sit/Lie (frequent falls) PPS Activity: Unable to do most activity PPS Self-Care: Full Self Care PPS Intake: Normal or reduced PPS Conscious Level: Full Performance Scale: 50% ADLs ADL Patient Status: Baseline (recent) ADL Ambulation: Mainly Sit/Lie ADL Dressing: Full ADL Feeding: Full ADL Hygene/bathing: Full ADL Transfers: Full POLST at Time of Admission Previous POLST?: No Allergy Allergies Reviewed: Yes Medications Current Medications: Current Medications Al Hydrox/Mg Hydrox/Simethicone 30 ml Q6H PRN PO; Start 12/30/16 at 13:10 Ondansetron HCl 4 to 8 mg Q4H PRN IVPUSH; Start 12/30/16 at 13:10 Senna 17.2 mg BID PRN PO; Start 12/30/16 at 13:10 Polyethylene Glycol 17 gm DAILY PRN PO; Start 12/30/16 at 13:10 Ferrous Gluconate 324 mg 324 mg DAILYWM PO Last administered on 12/31/16t 09:26 ; Admin Dose 324 MG; Start 12/31/16 at 08:00 Sodium Chloride 1,000 ml @ 100 mls/hr Q10H PRN IV; Start 12/30/16 at 15:40 Scheduled Iron,Carbonyl/Vit C/Vit B12/FA (Iron 100 Plus Tablet) 1 Each Tablet 1 EACH PO DAILY Multivit-Min/Iron Fum/Folic AC (Rtbaz-Gxppvpq-Iiqvhvfj Tablet) 7.5 Mg Iron-400 Mcg Tablet 1 TABLET PO DAILY Hayti-3 Fatty Acids/Fish Oil (Fish Oil 1,200 mg Softgel) 1 Each Capsule 1 CAPSULE PO DAILY Objective Findings Exam Vital Sign - Last Date Time Temp Pulse Resp B/P Pulse Ox O2 Delivery O2 Flow Rate FiO2 12/31/16 11:41 36.5 77 17 106/62 98 Room Air Intake and Output 12/30/16 12/30/16 12/31/16 Cumulative From/Thru 14:59 22:59 06:59 12/30/16 09:34 - 12/31/16 06:13 Intake Total 3570 ml 380 ml 100 ml 4050 ml Output Total 700 ml 700 ml Balance 3570 ml 380 ml -600 ml 3350 ml Intake Oral 100 ml 100 ml IV Total 3250 ml 40 ml 3290 ml Packed Cells 320 ml 340 ml 660 ml Output Urine Total 700 ml 700 ml # Voids 1 1 # Bowel Movements 3 3 6 Objective General: Thin, pale and chronically ill-appearing man in no acute distress. HEENT: Normocephalic, PERRLA. Anicteric sclerae. Mucous membranes dry Lungs: Clear to auscultation bilaterally with no crackles, wheezes, or rhonchi. Cardiovascular: Regular rate/rhythm. No murmurs Abdomen: Soft, non-distended, non-tender. Hepatomegaly. Hypoactive bowel tones. Extremities: Upper/lower ext notable for muscle wasting. Distal pulses equal/ intact bilaterally. No edema. Neurological: Alert and oriented x3. Grossly neurologically intact. Normal speech Lab/Diagnostics Lab and Imaging results reviewed in detail in EMR. Time spent Total time 60 minutes; >50% face to face with patient , providing counselling regarding plans and recommendations, and in care coordination with his medical teams. Of the above total time, 20 minutes counseling for advanced care planning with the patient copies to: More Culp MD, David F MD Dec 31, 2016 15:33
[2016-12-31 15:47] VITALS: BP 96/54; PULSE 88; RESP 16; O2SAT 96
--- NOTE | 2016-12-31 17:41 | NUR ---
spiritual care; pt request visit attempt, unable to see pt. will plan to follow
--- NOTE | 2016-12-31 18:19 | PCM.PNMED ---
Subjective Date of Service Dec 31, 2016 Subjective Subjective: Patient states that he is feeling better today, however continues to ask for increasing medication doses for pain and nausea. Events Overnight: No acute events overnight. ROS: Denies fever/chills, headache, weakness, abdominal pain, chest pain, shortness of breath, increased swelling in hands or feet. Exam Vital Signs Vital Sign - Last Date Time Temp Pulse Resp B/P Pulse Ox O2 Delivery O2 Flow Rate FiO2 12/31/16 15:47 37.0 88 16 96/54 96 Room Air Intake and Output 12/30/16 12/30/16 12/31/16 Cumulative From/Thru 15:00 23:00 07:00 12/30/16 09:34 - 12/31/16 06:13 Intake Total 3570 ml 380 ml 100 ml 4050 ml Output Total 700 ml 700 ml Balance 3570 ml 380 ml -600 ml 3350 ml Intake Oral 100 ml 100 ml IV Total 3250 ml 40 ml 3290 ml Packed Cells 320 ml 340 ml 660 ml Output Urine Total 700 ml 700 ml # Voids 1 1 # Bowel Movements 3 3 6 Exam General: Pale, cachectic, no acute distress Head: Normocephalic, atraumatic. External ears without defect. Eyes: Pupils equal, round, and reactive to light and accommodation. Anicteric sclerae, moist conjunctivae. Neck: Normal range of motion, no lymphadenopathy noted Cardiovascular: Regular rate and rhythm with no murmurs, rubs, or gallops appreciated Pulmonary: Clear to auscultation bilaterally with no crackles, wheezes, or rhonchi. Normal respiratory effort with no use of accessory muscles. Abdomen: Bowel tones present. Distended, firm, nontender. Extremities: No clubbing, cyanosis, 2+ edema of the lower legs bilaterally Skin: Normal temperature, turgor, and texture; no rash, ulcers, or subcutaneous nodules appreciated. Neurological: Cranial nerves grossly intact. Reflexes, coordination, and sensory function within normal limits. Psychiatric: Normal mood and affect. Alert and oriented to person, place, and time IVs and Medications Medications Reviewed: Medications were reviewed in detail Lab and Diagnostics Result Diagram: 12/31/165 12/31/16244 X-Rays, CTs and MRIs CT CHEST, ABDOMEN AND PELVIS WT CONTRAST IMPRESSION: 1. Extensive pulmonary metastases. 2. Extensive hepatic metastases. 3. Masses in the distal colon at the sigmorectal junction, as well as anus. 4. Enlarged perirectal lymph nodes consistent with metastases. 5. Small amount of free fluid. 6. A small hiatal hernia. 7. Bifid pancreatic tail. Dictated by: Narinder Walton M.D. on 12/10/2016 at 11:16 Approved by: Narinder Walton M.D. on 12/10/2016 at 12:00 12-lead ECG ECG Interpretation: Sinus rhythm with a rate of [address] changes T wave inversions in AVR Unchanged from previous Time: 10:53 Interpreted by: ED physician Additional Diagnostics SURGICAL PATHOLOGY DATE COLLECTED:12/11/2016 00:00 SPECIMEN: 1: Anus, Biopsy FINAL DIAGNOSIS: 1-3. Anorectal Mass, 3 o'clock, 6 o'clock, 11 o'clock, Lithotomies: Invasive colonic adenocarcinoma, moderately differentiated, arising in a background of ulcer. Carcinoma undermines squamous epithelium. Lymphovascular invasion not identified. No loss of nuclear expression of MMR proteins. Loli Rae MD [facility] [address], [place] [address] Technical component performed at [facility], [facility] [address], [place], [address] Assessment & Plan Mr. Bear is a 61 year old male with history of tobacco and alcohol dependence , with one year history of chronic diarrhea brought into the ED via EMS for a near syncopal episode. Frequent Bloody Stool secondary to invasive adenocarcinoma, present on arrival, active Patient previously admitted to the hospital on 12/[address] at that time confirmed Pulmonary and hepatic mets; masses in the distal colon and anus; enlarged perirectal lymph nodes likely secondary to primary colon cancer After full workup oncology was consulted and followed up with as an outpatient. Patient elected at that time to forego medical management of any kind. - Rectal exam positive for small amount of gross blood and a rectal mass. - Biopsies from 12/11 shows invasive rectal adenocarcinoma - General surgery consulted, not recommending palliative surgery at this time. - Patient presented with the option to continue with palliative chemotherapy or palliative care through hospice. Hospice informational visit 12/31 - Patient to visit with Dr. Guerrero on 01/01 Acute hypotension, present on arrival, active Patient presented with systolic blood pressures in the low 90s after 3.5 L of fluid relatively unchanged - IV normal saline when necessary to keep SBP above 85 - Continue to monitor Chronic Microcytic anemia requiring transfusion, present on arrival, active Due to ongoing blood loss from invasive adenocarcinoma - Hemoglobin 5.8 on admission - Transfused 2 units PRBCs on 12/30 - Continue daily iron supplementation - Hemoglobin levels maintaining, continue to monitor Severe protein calorie malnutrition, present on arrival, active Patient displays increased fluid accumulation in the lower legs bilaterally - Total protein 5.6, albumin 2.1 - Nutrition consulted with the patient 12/31 - Continue to monitor Metabolic Acidosis likely secondary to severe anemia, POA, Active - Pt recieved 3L of fluid in the ED prior to transfusion - Lactic acid within normal limits - Continue to monitor Leukocytsis, POA, active No signs of infection at this time, abd non tender and no dysuria reported, no temps - Likely due to stress reaction secondary to colon cancer - Continue to monitor Thrombocytosis, POA, active - Likely due to continued bleeding - Continue to monitor Disposition: Patient to discharge tomorrow after discussion with Dr. Guerrero from oncology and coordination with social work for end-of-life paperwork Pain Evaluation: Adequate Pain Control VTE Prophylaxis: Other (contraindicated due to GI bleed) VTE Mechanical Devices: Intermittant Pneumatic CD Resuscitation Status: DNR/DNI:Do Not Resuscitate/Intubate Attending Statement The patient was seen and examined together with Dr. Olivares on 12/31/2016 and I agree with the history, exam and plan as outlined in the note above. . Angel Olivares DO Dec 31, 2016 18:19 Lorenzo Quick MD Jan 01, 2017 07:35
[2016-12-31 19:53] VITALS: BP 98/64; PULSE 87; RESP 17; O2SAT 96
--- NOTE | 2016-12-31 22:44 | NUR ---
Transfer Order received from Dr. Kyle benedict to transfer [place] [facility] [place]. Report given to Nicole Kraus RN prior to transfer. Asked pt if it was okay to notify his sister Angelique, Pt states to give her a call in AM- Nicole aware of plan. Pt transfer via wheelchair accompanies by hospital staff and belongings from room.
[2017-01-01 00:13] VITALS: BP 117/68; PULSE 85; RESP 16; O2SAT 94
--- NOTE | 2017-01-01 00:57 | NUR ---
[facility] TRANSFER Report received from [facility] RN, will call sister Angelique in a.m. to update room change. Pt arrived at [facility] 3029 via wheelchair at approx. 2245 with all belongings. Denies any pain. Went over POC with pt for the night and for the morning. Pt wants to try to sleep as much as he can and requested to be woken up q4h for brief check. Hourly rounding.
[2017-01-01 01:57] VITALS: PULSE 86
[2017-01-01 05:09] VITALS: BP 101/62; PULSE 83; RESP 16; O2SAT 94
[2017-01-01 06:00] VITALS: PULSE 82
[2017-01-01 08:00] VITALS: PULSE 82
--- NOTE | 2017-01-01 08:10 | PROG NOTE ---
[address] [address] PROGRESS NOTE PATIENT: CHRISTY SANTO : 1955 MR#: [id number] ADMIT: 12/30/2016 JOB ID: [id number] DATE: 01/01/2017 SUBJECTIVE: The patient is a 61-year-old gentleman with widely metastatic colorectal cancer. Biopsy of a rectal lesion returned positive for invasive adenocarcinoma, moderately differentiated. Imaging showed a large rectal mass, enlarged perirectal lymph nodes, and extensive pulmonary and hepatic metastases. He was rehospitalized earlier this week with recurrent rectal bleeding. Admit hemoglobin was 5.8 with hematocrit of 19.1% on December 30, 2016. He was transfused and current hemoglobin is 7.0 with hematocrit 21.7%. He is comfortable. OBJECTIVE: Vitals: T 36.8, P 83, R 16, BP 101/62. HEENT: Conjunctivae pale. Chest clear. Cardiac exam regular. Abdomen is soft. Extremities: Muscular wasting. LABS: (December 31, 2016) WBC 20.6, hemoglobin 7.3, hematocrit 22.9%, MCV 84, platelets 486,006. AST 72, ALT 33, alkaline phosphatase 594, total bilirubin 2.5. ASSESSMENT AND PLAN: Metastatic (stage 4), moderately differentiated adenocarcinoma of the rectum with extensive liver and pulmonary involvement: The patient has advanced incurable disease. We have had extensive discussions in the past regarding treatment versus palliative care. The patient met with hospice yesterday and has decided to accept palliative care. Arrangements are being made for discharge. No further follow up in the Cancer Center is indicated. Life expectancy is less than six months, potentially significantly less. The liver function tests, showed transaminitis and evidence of a new hyperbilirubinemia, worrisome for imminent liver failure. Nonetheless, the goal of further management is palliation of symptoms. We would be happy to support hospice services, which could also work through his primary care provider, Dr. Chris Medina.
--- NOTE | 2017-01-01 09:12 | NUR ---
Palliative care note D/A: Phone call this am to Morenita at [facility] to discuss info visit of 12/31/16. She indicates that pt signed consent for hospice. In looking at calendar for intakes, it appears that 01/03/17 may be next earliest opening. Note that at this time, pt is not complaining of pain or symptom needs and Dr. Pyle does not feel that pt need to dc on same day as [facility] open. Case discussed with Janine MARTINEZ, rick who has also been in touch with Morenita. Pt wishing to dc today, unclear yet if he will be felt to be medically stable for dc. Pt sister was here and attended meeting with Dr. Guerrero. Sister Angelique is anxious about getting details finished which is understandable as she is also becoming responsible for care of disabled brother as well. Phone call to Morenita at [facility]. Have asked her to notify [employer]GER associated with his care to please see him sooner rather then later. It will be helpful to assist pt and sister with DPOA paperwork, POLST (if still needs completion) and discuss arrangements and future planning. Morenita to do so. Dr. Pyle aware. P: Palliative care to follow. Jackelyn Thornton [facility] Addendum: 01/01/17 at 1125 by JANINE THORNTON PC note amendment D/A: Dr. Pyle has met with pt today to complete POLST. Pt medical condition/pt goals are noted as metastatic cancer and wants to be comfortable at home. Pt elects to be DNAR with comfort measures only. He wishes to determine the use of antibiotics if or when an infection arises and does not wish medically assisted nutrition via tube. POLST is dated 01/01/[address] and [address] Pyle and pt. POLST is scanned and emailed to Morenita Nguyễn, Hospice Referral Diesel Crane Operator. Plan remains for [facility] to open up pt for care on 01/03/17. Plan is proceeding for dc today. P: Palliative to follow as needed. Jackelyn PA, CCM
[2017-01-01 09:20] VITALS: BP 105/61; PULSE 80; RESP 16; O2SAT 95
--- NOTE | 2017-01-01 10:00 | PCM.DIMED ---
Angel Olivares DO 12/31/16 1522: Discharge Instructions Date of Service Dec 31, 2016 Dates of Hospitalization Dec 30, 2016 at 11:19 Discharge Diagnosis Discharge Diagnosis Frequent Bloody Stool secondary to invasive adenocarcinoma Acute hypotension Chronic Microcytic anemia requiring transfusion Severe protein malnutrition Metabolic Acidosis likely secondary to severe anemia Leukocytsis Thrombocytosis Medication Instructions Additional med instructions No new medications initiated during this hospital stay. Test Results Test Results No new imaging completed during this hospital stay. Diet Discharge Diet: No restrictions Activity Discharge Activity: No restrictions Call your provider Call your provider for: Fever or Chills, Shortness of breath, Bleeding, Chest pain, Vomitting, Excessive diarrhea, Weakness (unilateral) Patient Instructions Patient Instructions During your stay we discussed the possibility of initiating palliative chemotherapy through Dr. Guerrero from oncology, or following a more conservative route through palliative care and hospice. Palliative care was contacted and a hospice informational visit was set up. At this time you have elected to go home under hospice care. Should you have any questions concerning this, please contact hospice at any time. Follow-up plan If for some reason you were to change her mind about hospice, you are welcome to follow-up with Dr. Guerrero from oncology at any time. Prasanna Bee MD 01/01/17 1000: Angel Olivares DO Dec 31, 2016 15:22 Prasanna Bee MD Jan 01, 2017 10:00
--- NOTE | 2017-01-01 11:52 | NUR ---
spiritual care: pt request conversational visit. pt reflective about this moment--moving toward hospice care. Sorrowful, resigned. Pt expressed how helpful prayer is as he grieves and manages symptoms. moving in with sister. pt reflective about his handling of his responsiblities as he anticipates decline in abilities. Prayer.
--- NOTE | 2017-01-01 12:18 | NUR ---
Social Work-discharge: Data:EMR reviewed. Pt is on day 2 of hospitalization for GI bleed per H&P. Pt is medically stable for discharge. ANGEL spoke with Morenita at Hospice who confirms pt did sign consents and they can open with pt on Thursday between -. SW spoke with pt and sister Angelique at bedside they are both agreeable to plan. Sister Angelique plans on transporting pt. Sister has questions about DPOA etc and also home information. SW answered all questions and provided pt with list of and cremation services. SW also explained to sister that pt will have a school social worker through Hospice to help with these things. SW confirmed with pt and sister that they would need a hospital bed, bsc, and bedside table. SW updated Hospice, but pt does not need these things today. All updated and agreeable to plan. Assessment:Pt to benefit from Hospice. Plan:Pt to discharge home today via POV. Sister to provide support and assistance. Hospice to open with Pt at home on Tuesday 01/02 between -. All updated and agreeable to plan. JUAN Cole
--- NOTE | 2017-01-01 12:51 | PCM.PALLBR ---
Palliative Care Recommendation 61-year-old gentleman with history of metastatic colorectal cancer, admitted with lower GI bleed and severe anemia. Has not yet decided whether he wants to progress to hospice care versus undergoing palliative chemotherapy Palliative medicine consulted to assist in determination of goals of care Summary of palliative recommendations: -Symptom management (Pain/other)- quite comfortable. Continue current management per medical team. Hospice to assume symptomatic care once he is home -DPOA/Advanced Directives/POLST- discussed advanced directive wishes with him again today and he has made the decision to be DNR/DNI/Comfort Care. A new POLST is completed indicating this as well as no return to hospital/no artificial nutrition/antibiotics acceptable for comfort. -Family/emotional support- sister Angelique is his primary contact. Additional Medical Diagnoses with primary management by Hospitalist team include : Frequent Bloody Stool secondary to invasive adenocarcinoma, present on arrival, active Patient previously admitted to the hospital on 12/[address] at that time confirmed Pulmonary and hepatic mets; masses in the distal colon and anus; enlarged perirectal lymph nodes likely secondary to primary colon cancer Acute hypotension, present on arrival, active Chronic Microcytic anemia requiring transfusion, present on arrival, active Severe protein malnutrition, present on arrival, active Metabolic Acidosis likely secondary to severe anemia, POA, Active Leukocytsis, POA, active Thrombocytosis, POA, active Problems: End of Life Preferences DNR/DNI/comfort Goals of Care Comfort care at home Disposition Home with hospice Resuscitation Status Resuscitation Status: DNR/DNI:Do Not Resuscitate/Intubate POLST Updates/Changes Previous POLST?: No POLST Last Review Date: Jan 01, 2017 Antibiotics: Determine Use or Limitations Artificially Admin Nutrition: No Artifical Nutrition by Tube POLST Review Outcome: New Form Completed . Advanced Care Planning Address: POLST, Comfort care Pain: None Total time 35 minutes; >50% face to face with patient, providing counselling regarding plans and recommendations, and in care coordination with his medical teams. All of the above time counseling for advanced care planning with the patient copies to: More Culp MD; Mehdi Guerrero MD Palliative Brief Note Date of Service Jan 01, 2017 . Returned to reevaluate patient. Prior to visiting, reviewed his updated records in the EMR in detail. Spoke with his bedside nurse and with his oncologist. On arrival, patient is awake and resting quietly in bed. He was oriented and appropriate. He told us that his hospice visit yesterday went well and that he has signed on to hospice. He also decided, after further conversation with his oncologist, to forego any palliative chemotherapy. He continues to feel remarkably well, with no significant pain, nausea or other distressing symptoms. His exam remains stable. We discussed advanced directive wishes once again and he confirmed DNR/DNI status. We then took some time completing a POLST for him with copies and original given to him an additional copies placed in his chart and in the palliative care office. Per his hospitalist, plan is for discharge today. Lopez Pyle MD Jan 01, 2017 12:51
--- NOTE | 2017-01-01 13:04 | NUR ---
Discharge Reviewed discharge paperwork and care notes with pt and sister -disclaimer signed. IVs (2) DCd intact, tele removed, all belongings with pt. Performed david/skin care with new brief prior to discharge. Pt denied pain and SOB at rest. POLST form with pt and instructions given. Escorted out of unit to curb in WC. Pt weak but steady when on feet. Sister driving pt home.
--- NOTE | 2017-01-01 14:36 | PCM.DC.MED ---
Discharge Summary Date of Service Jan 01, 2017 Dates of Hospitalization Date of Hospital Admission Dec 30, 2016 at 11:19 Date of Discharge: Jan 01, 2017 Providers: Admitting Physician: Lorenzo Quick MD Primary Care Physician: More Culp MD Attending Physician: Prasanna Bee MD Diagnosis at Time of Discharge Diagnosis at Time of Discharge Frequent Bloody Stool secondary to invasive adenocarcinoma Acute hypotension Chronic Microcytic anemia requiring transfusion Severe protein calorie malnutrition Metabolic Acidosis likely secondary to severe anemia Leukocytsis Thrombocytosis Consultations Oncology: Dr. Guerrero General surgery: Dr. Albright Palliative care: Dr. Pyle Procedures XRay, CTs & MRIs CT CHEST, ABDOMEN AND PELVIS WTIH CONTRAST IMPRESSION: 1. Extensive pulmonary metastases. 2. Extensive hepatic metastases. 3. Masses in the distal colon at the sigmorectal junction, as well as anus. 4. Enlarged perirectal lymph nodes consistent with metastases. 5. Small amount of free fluid. 6. A small hiatal hernia. 7. Bifid pancreatic tail. Dictated by: Narinder Walton M.D. on 12/10/2016 at 11:16 Approved by: Narinder Walton M.D. on 12/10/2016 at 12:00 ECG 12 Lead ECG Interpretation: Sinus rhythm with a rate of [address] changes T wave inversions in AVR Unchanged from previous Time: 10:53 Interpreted by: ED physician Other Diagnostics SURGICAL PATHOLOGY DATE COLLECTED:12/11/2016 00:00 SPECIMEN: 1: Anus, Biopsy FINAL DIAGNOSIS: 1-3. Anorectal Mass, 3 o'clock, 6 o'clock, 11 o'clock, Lithotomies: Invasive colonic adenocarcinoma, moderately differentiated, arising in a background of ulcer. Carcinoma undermines squamous epithelium. Lymphovascular invasion not identified. No loss of nuclear expression of MMR proteins. Loli Rae MD [facility] [address], [place] [address] Technical component performed at [facility], [facility] [address], [place], [address] Brief History Taken from note completed by Dr. Pyle palliative care: Tomer Bear is a 61 year old gentleman with PMH tobacco and alcohol use, and chronic diarrhea who presents with profuse rectal bleeding. The patient reports that this morning he went to the bathroom and began to bleed from his rectum profusely and began to feel weakened but no pain. Since his last hospitalization (12/10/16) he reports a 10 pound weight gain but overall a loss of 30-40 pounds over the past year and a half. Since his last visit he has continued to experience diarrhea daily and generalized weakness but denies any other episodes of hematochezia. He also reports that his rectal mass is not painful. In the ED he was afebrile with a Temp-36.9, HR-81, BP-94/41, RR-16 and O2 sat of 98% on room air. His labs were significant for WBC-19.1, Hg-5.8, Hct-19.1 and Plt-647. Hyponateremia-132, hypochloremia-95, AST 106, ALT 46 and Alk phos of 776. ECG showed PACs Palliative medicine consulted to assist patient with determination of goals of care Prior to visiting, heart reviewed his updated records in the EMR in detail, spoke with his bedside nurse and hospitalist and eventually spoke with his oncologist Dr. Guerrero. On arrival, patient is lying in bed. He appeared weak but was oriented and appropriate. Denied any significant discomfort of any sort. We reviewed history of his medical problems that led to this admission, talked about his concerns regarding potential chemotherapy versus hospice. He initially indicated that he would want to wait before starting palliative chemotherapy until symptoms became unbearable- and I explained carefully to him that such an approach was not reasonable or functional. He understood this and indicated that it would contribute to his decision-making. Discussed the nature of hospice support and how it might interface with his current living situation- he has been living alone in his own home with assistance from his sister Angelique. He noted that while he and Angelique had been talking about getting important paperwork completed, they have not yet completed POA or POLST documentation. We discussed advanced directive issues in detail. Initially he said that he would want all possible resuscitation efforts, but then we talked further about what that would really mean and what impact it would have on his bigger picture. After further discussion, he noted that such interventions would not make much sense and that he preferred to be DNR/DNI. Hospital Course Mr. Bear is a 61 year old male with history of tobacco and alcohol dependence , with one year history of chronic diarrhea brought into the ED via EMS for a near syncopal episode. After patient's discussion with palliative care as well as Dr. Guerrero from oncology patient elected to continue with home hospice at this time. Patient will be discharged from the hospital under their care. End-of-life paperwork scheduled to be completed prior to discharge home. Frequent Bloody Stool secondary to invasive adenocarcinoma, present on arrival, active Patient previously admitted to the hospital on 12/[address] at that time confirmed Pulmonary and hepatic mets; masses in the distal colon and anus; enlarged perirectal lymph nodes likely secondary to primary colon cancer After full workup oncology was consulted and followed up with as an outpatient. Patient elected at that time to forego medical management of any kind. - Rectal exam positive for small amount of gross blood and a rectal mass. - Biopsies from 12/11 shows invasive rectal adenocarcinoma - General surgery consulted, not recommending palliative surgery at this time. - Patient presented with the option to continue with palliative chemotherapy or palliative care through hospice. Hospice informational visit 12/31 - After visit with Dr. Guerrero on 01/01 patient elected to forego palliative chemotherapy at this time. Acute hypotension, present on arrival, active Patient presented with systolic blood pressures in the low 90s after 3.5 L of fluid relatively unchanged Chronic Microcytic anemia requiring transfusion, present on arrival, active Due to ongoing blood loss from invasive adenocarcinoma - Hemoglobin 5.8 on admission - Transfused 2 units PRBCs on 12/30 - Continue daily iron supplementation - Hemoglobin levels 7.2 post transfusion currently maintaining, no need to continue monitoring at this point Severe protein calorie malnutrition, present on arrival, active Patient displays increased fluid accumulation in the lower legs bilaterally - Total protein 5.6, albumin 2.1 - Nutrition consulted with the patient 12/31 Metabolic Acidosis likely secondary to severe anemia, POA, Active - Pt recieved 3L of fluid in the ED prior to transfusion - Lactic acid within normal limits Leukocytsis, POA, active No signs of infection at this time, abd non tender and no dysuria reported, no temps - Likely due to stress reaction secondary to colon cancer Thrombocytosis, POA, active - Likely due to continued bleeding Exam Vital Signs (Last) Date Time Temp Pulse Resp B/P Pulse Ox O2 Delivery O2 Flow Rate FiO2 01/01/17 09:20 36.8 80 16 105/61 95 Room Air Exam General: Pale, cachectic, no acute distress Head: Normocephalic, atraumatic. External ears without defect. Eyes:Pupils equal, round, and reactive to light and accommodation. Anicteric sclerae, moist conjunctivae. Neck: Normal range of motion, no lymphadenopathy noted Cardiovascular: Regular rate and rhythm with no murmurs, rubs, or gallops appreciated Pulmonary: Clear to auscultation bilaterally with no crackles, wheezes, or rhonchi. Normal respiratory effort with no use of accessory muscles. Abdomen: Bowel tones present. Distended, firm, nontender. Extremities: No clubbing, cyanosis, 2+ edema of the lower legs bilaterally Skin: Normal temperature, turgor, and texture; no rash, ulcers, or subcutaneous nodules appreciated. Neurological: Cranial nerves grossly intact. Reflexes, coordination, and sensory function within normal limits. Psychiatric: Normal mood and affect. Alert and oriented to person, place, and time Test 12/30/16 09:40 12/31/16 02:45 01/01/17 06:30 Prothrombin Time 12.2sec (8.1-12.5) Prothromb Time International Ratio 1.14ratio White Blood Count 20.6th/mm3 (3.8-10.1) Red Blood Count 2.72mil/mm3 (4.40-5.80) Mean Corpuscular Volume 84.2fL (81-100) Mean Corpuscular Hemoglobin 26.8pg (27.0-35.0) Mean Corpuscular Hemoglobin Concent 31.9% (32.0-37.0) Red Cell Distribution Width 20.3% (12.3-15.4) Platelet Count 486bil/L (150-400) Neutrophils (%) (Auto) 86.7% (40-74) Lymphocytes (%) (Auto) 4.9% (14-46) Monocytes (%) (Auto) 7.9% (4-12) Eosinophils (%) (Auto) 0% (0-5) Basophils (%) (Auto) 0% (0-3) Sodium Level 135mEq/L (134-144) Potassium Level 3.9mEq/L (3.5-5.2) Chloride Level 101mEq/L (97-108) Carbon Dioxide Level 19mmol/L (18-29) Blood Urea Nitrogen 11mg/dL (8-27) Creatinine 0.43mg/dL (0.76-1.27) Estimat Glomerular Filtration Rate 213mL/min (>59) Glucose Level 58mg/dL (60-99) Calcium Level 6.9mg/dL (8.5-10.1) Phosphorus Level 3.2mg/dL (2.5-4.9) Magnesium Level 2.1mg/dL (1.6-2.6) Total Bilirubin 2.5mg/dL (0.0-1.2) Aspartate Amino Transf (AST/SGOT) 72U/L (0-50) Alanine Aminotransferase (ALT/SGPT) 33U/L (0-44) Alkaline Phosphatase 594U/L (25-160) Total Protein 4.6g/dL (6.4-8.4) Albumin 1.7g/dL (3.4-5.0) Hemoglobin 7.0g/dL (13.8-17.2) Hematocrit 21.7% (41.0-50.0) Discharge Medications Discharge Medications Iron,Carbonyl/Vit C/Vit B12/FA (Iron 100 Plus Tablet) 1 Each Tablet 1 EACH PO DAILY Prescribed by: ANGEL PENALOZA DO Multivit-Min/Iron Fum/Folic AC (Egndh-Uunyaer-Jeslxvzd Tablet) 7.5 Mg Iron-400 Mcg Tablet 1 TABLET PO DAILY (Reported) [place]-3 Fatty Acids/Fish Oil (Fish Oil 1,200 mg Softgel) 1 Each Capsule 1 CAPSULE PO DAILY (Reported) Additional med instructions No new medications necessary at this time. Followup Plan Disposition: Home Follow-up plan No follow-up necessary, except with hospice as needed. Discharge Diet: No restrictions Discharge Activity: No restrictions Patient Instructions Continue home medications as previous, hospice to make suggestions regarding comfort care management. Time spent Greater than 35 minutes spent on documentation and coordination of discharge. Angel Penaloza DO Jan 01, 2017 14:36
== END 2017-01-01 12:50 | disposition hospice, home (50) | DRG 374 ==
LOC: SED 09:27 → PCC 11:19 → MPC 12-31 22:43
PROVIDERS: ADMIT Internal Medicine; ATTEND Internal Medicine
PROC: 30233P1 Transfusion of Nonautologous Frozen Red Cells into Peripheral Vein, Percutaneous Approach (ICD-10-PCS; principal; 2016-12-30)
DX: C19 Malignant neoplasm of rectosigmoid junction (principal); E43 Unspecified severe protein-calorie malnutrition; K62.5 Hemorrhage of anus and rectum; C78.7 Secondary malignant neoplasm of liver and intrahepatic bile duct; C78.00 Secondary malignant neoplasm of unspecified lung; Z68.1 Body mass index [BMI] 19.9 or less, adult; E87.2 Acidosis; D50.0 Iron deficiency anemia secondary to blood loss (chronic); I95.9 Hypotension, unspecified; D47.3 Essential (hemorrhagic) thrombocythemia; F17.210 Nicotine dependence, cigarettes, uncomplicated; Z66 Do not resuscitate; D72.829 Elevated white blood cell count, unspecified; Z51.5 Encounter for palliative care; F10.21 Alcohol dependence, in remission